=== PATIENT | male | born 1945 | race Caucasian/White ===

== ENCOUNTER 2016-05-31 13:36 | Emergency (ER) | payer MEDICARE, BC ==
[2016-05-31 14:28] VITALS: BP 134/83
--- NOTE | 2016-05-31 14:40 | UC ---
HPI Febrile Illness - HPI Summary HPI Summary: complaint of headache, nasal congestion and cough that started 2 days entire body feels achy, feels chills frequently right ear pain for 1 day denies N/V/D Dr Saravia treating him for prostate cancer sent to [facility] an acute care hospital to get a rapid influenza test last chemo on monday, currently on hormone therapy had influenza immunization this year - History of Current Complaint Chief Complaint: UC Time Seen by Provider: 05/31/16 14:31 Hx Obtained From: Patient - Allergy/Home Medications Allergies/Adverse Reactions: Allergies Allergy/AdvReac Type Severity Reaction Status Date / Time Morphine Allergy Severe VIOLENT Verified 03/20/12 08:12 NAUSEA AND VOMITING PMH/Surg Hx/FS Hx/Imm Hx Previously Healthy: No - prostate cancer Endocrine/Hematology History: Denies: Hx Diabetes Cardiovascular History: Denies: Hx Hypertension Respiratory History: Reports: Hx Asthma, Hx Chronic Obstructive Pulmonary Disease (COPD) GI History: Reports: Hx Gastroesophageal Reflux Disease - ON MEDICATION Musculoskeletal History: Reports: Hx Arthritis - LOWER BACK Sensory History: Reports: Hx Contacts or Glasses - GLASSES Denies: Hx Hearing Aid Opthamlomology History: Reports: Hx Contacts or Glasses - GLASSES Psychiatric History: Reports: Hx Anxiety - ON MEDICATION, Hx Depression - ON MEDICATION - Cancer History Cancer Type, Location and Year: prostrate cancer dx 01/2016. DOing well with treatment started 5 weeks ago - Surgical History Surgery Procedure, Year, and Place: LEFT ELBOW JOINT MOUSE SURGERY, 1983, [facility] [place]. LEFT HIP REPLACEMENT, 2005, [facility] [place]. 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 Substance Use Type: Reports: None Smoking Status (MU): Former Smoker Review of Systems Constitutional: Chills, Fatigue Skin: Negative Eyes: Negative ENT: Ear Ache, Nasal Discharge Respiratory: Cough Cardiovascular: Negative Gastrointestinal: Negative Genitourinary: Negative Motor: Negative Neurovascular: Negative Musculoskeletal: Negative Neurological: Negative Psychological: Negative All Other Systems Reviewed And Are Negative: Yes Physical Exam Triage Information Reviewed: Yes Appearance: No Pain Distress, Well-Nourished Vital Signs: Initial Vital Signs Temp 97.4 F 05/31/16 14:17 Pulse 60 05/31/16 14:17 Resp 18 05/31/16 14:17 BP 134/83 05/31/16 14:17 Pulse Ox 97 05/31/16 14:17 Vital Signs Reviewed: Yes Eyes: Positive: Conjunctiva Clear ENT: Positive: Pharynx normal, Nasal drainage, TMs normal Neck: Positive: No Lymphadenopathy Respiratory: Positive: Lungs clear, No respiratory distress, No accessory muscle use, Decreased breath sounds Cardiovascular: Positive: RRR, No Murmur, Pulses Normal Abdomen Description: Positive: Nontender, Soft Bowel Sounds: Positive: Present Musculoskeletal: Positive: No Edema Neurological: Positive: Alert Psychological Exam: Normal Skin Exam: Normal Course/Dx - Febrile Illness Differential Diagnoses: Other: - influenza, viral illness - Diagnoses Clinic Provider Diagnoses: URI Discharge - Discharge Plan Condition: Stable Disposition: HOME Patient Education Materials: Upper Respiratory Infection (ED) Referrals: Syd Chi MD [Primary Care Provider] - Additional Instructions: Increase fluids and rest Take acetaminophen or ibuprofen for fever or pain Please review your discharge instructions. If your symptoms do not improve please call your primary care provider or return to urgent care.
== END 2016-05-31 15:32 | disposition home or self-care (01) ==
LOC: UCEAST 13:36
DX: J06.9 Acute upper respiratory infection, unspecified (principal); Z88.6 Allergy status to analgesic agent; Z87.891 Personal history of nicotine dependence
CPT/HCPCS: 36415; 86803; 87502; 99202; G0463

== ENCOUNTER → 2018-11-20 19:37 | Emergency (ER) | payer MEDICARE, BC ==
--- NOTE | 2018-11-20 19:56 | ED ---
Lower Extremity - HPI Summary HPI Summary: This pt is a 72 y/o male presenting to [facility] via EMS c/o right knee pain s/p standing up from squatting position today. Pt reports he was pulling weeds with both hands when he squatted down and stood up. Suddenly he felt a sharp pain in his right knee. Denies any other injuries. Denies fall. He reports swelling in his right knee and decreased ROM. Denies hip pain, ankle pain, back pain. He currently rates his pain 2/10 in severity. His pain is aggravated with movement. Pt denies chest pain or SOB. PMHx includes right knee total replacement about 10 years ago at [place]. Pt is not on anticoagulants. - History of Current Complaint Stated Complaint: RIGHT KNEE PAIN PER EMS Hx Obtained From: Patient Mechanism Of Injury: Other - s/p standing up from squatting down Onset of Pain: Immediate Onset/Duration: Still Present Severity Currently: Mild Pain Intensity: 2 Pain Scale Used: 0-10 Numeric Timing: Lasting Hours Location: Is Discrete @ - right knee Character Of Pain: Sharp Associated Signs And Symptoms: Positive: Swelling, Knee Pain - right, Other - NEGATIVE: hip pain, ankle pain, chest pain, SOB, back pain. Aggravating Factor(s): Movement Alleviating Factor(s): Nothing Able to Bear Weight: No - Allergies/Home Medications Allergies/Adverse Reactions: Allergies Allergy/AdvReac Type Severity Reaction Status Date / Time MS Morphine [Morphine] AdvReac Severe VIOLENT Verified 03/31/17 10:18 NAUSEA AND VOMITING PMH/Surg Hx/FS Hx/Imm Hx Endocrine/Hematology History: Denies: Hx Diabetes Cardiovascular History: Reports: Hx Hypercholesterolemia Denies: Hx Hypertension Respiratory History: Reports: Hx Asthma, Hx Chronic Obstructive Pulmonary Disease (COPD) GI History: Reports: Hx Gastroesophageal Reflux Disease - ON MEDICATION Musculoskeletal History: Reports: Hx Arthritis - LOWER BACK Sensory History: Reports: Hx Contacts or Glasses - GLASSES Denies: Hx Hearing Aid Opthamlomology History: Reports: Hx Contacts or Glasses - GLASSES Psychiatric History: Reports: Hx Anxiety - ON MEDICATION, Hx Depression - ON MEDICATION - Cancer History Cancer Type, Location and Year: prostrate cancer dx 01/2016. DOing well with treatment started 5 weeks ago - Surgical History Surgical History: Yes Surgery Procedure, Year, and Place: LEFT ELBOW JOINT MOUSE SURGERY, 1983, [facility] [place]. LEFT HIP REPLACEMENT, 2005, [facility] [place]. 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 Negative: Other - NEGATIVE: hip pain, ankle pain, back pain All Other Systems Reviewed And Are Negative: Yes Physical Exam - Summary Physical Exam Summary: VITAL SIGNS: Reviewed. GENERAL: Patient is a well-developed and nourished male who is lying comfortable in the stretcher. Patient is not in any acute respiratory distress. HEAD AND FACE: No signs of trauma. No ecchymosis, hematomas or skull depressions. No sinus tenderness. EYES: PERRLA, EOMI x 2, No injected conjunctiva, no nystagmus. EARS: Hearing grossly intact. Ear canals and tympanic membranes are within normal limits. MOUTH: Oropharynx within normal limits. NECK: Supple, trachea is midline, no adenopathy, no JVD, no carotid bruit, no c- spine tenderness, neck with full ROM. CHEST: Symmetric, no tenderness at palpation LUNGS: Clear to auscultation bilaterally. No wheezing or crackles. CVS: Regular rate and rhythm, S1 and S2 present, no murmurs or gallops appreciated. ABDOMEN: Soft, non-tender. No signs of distention. No rebound, no guarding, and no masses palpated. Bowel sounds are normal. EXTREMITIES: Right knee: right knee suprapatellar effusion, Decreased ROM, Tenderness to palpation NEURO: Alert and oriented x 3. No acute neurological deficits. Speech is normal and follows commands. SKIN: Dry and warm Triage Information Reviewed: Yes Vital Signs On Initial Exam: Initial Vitals Temp Pulse Resp BP Pulse Ox 97.9 F 69 18 143/80 96 11/20/18 19:38 11/20/18 19:38 11/20/18 19:38 11/20/18 19:38 11/20/18 19:38 Vital Signs Reviewed: Yes Diagnostics - Vital Signs Vital Signs Temp Pulse Resp BP Pulse Ox 11/20/18 19:38 97.9 F 69 18 143/80 96 - Laboratory Lab Statement: Any lab studies that have been ordered have been reviewed, and results considered in the medical decision making process. - Radiology Right knee XR Radiology Interpretation Completed By: ED Physician Summary of Radiographic Findings: S/p total knee replacement, no fracture or dislocation. Soft tissue swelling. - CT CT Right lower extremity CT Interpretation Completed By: Radiologist Summary of CT Findings: IMPRESSION: Well aligned total right knee arthroplasty without evidence of failure or infection. Nonspecific joint effusion. Incompletely evaluated femoral components due to beam hardening artifact. If there is concern for component loosening or infection consider follow up triple phase bone scan. Dr. Williamson has reviewed this report. Re-Evaluation - Re-Evaluation First Eval Re-Evaluation Time: 21:08 Comment: Reviewed XR and CT results with pt. I discussed Dr. Diaz's recommendations with pt. He will be discharged home with follow up from orthopedics. Lower Extremity Course/Dx - Course Assessment/Plan: This pt is a 72 y/o male presenting to [facility] via EMS c/o right knee pain s/p standing up from squatting position today. Pt reports he was pulling weeds with both hands when he squatted down and stood up. Suddenly he felt a sharp pain in his right knee. Denies any other injuries. Denies fall. He reports swelling in his right knee and decreased ROM. Denies hip pain, ankle pain, back pain. He currently rates his pain 2/10 in severity. His pain is aggravated with movement. Pt denies chest pain or SOB. PMHx includes right knee total replacement about 10 years ago at [place]. Pt is not on anticoagulants. X ray of the right knee impression: No fracture or dislocation. Soft tissue swelling. RLE CT IMPRESSION: Well aligned total right knee arthroplasty without evidence of failure or. infection. Nonspecific joint effusion. Incompletely evaluated femoral. components due to beam hardening artifact. If there is concern for component loosening or infection consider follow up triple phase bone scan. I believe patient has a non displaced distal right femur fracture, therefore I discussed the case with Dr. Rodrigues from orthopedics and after he reviewed the CT scan he agrees that the patient has a distal femur fracture. Dr. Rodrigues recommends a knee immobilizer, non-weight bearing, crutches and follow up with orthopedics. Patient declines pain medication since he uses medical [facility]. Patient reports he has an appointment with his orthopedic doctor on and he will keep appointment. Patient is hemodynamically stable, and alert and oriented x 3. - Diagnoses Provider Diagnoses: Fracture of distal femur - Physician Notifications Discussed Care Of Patient With: Jamie Diaz - orthopedist Time Discussed With Above Provider: 21:03 Instructed by Provider To: Other - Discussed the case with Dr. Diaz, orthopedist, who agrees with distal femur fracture on the right. Discharge - Sign-Out/Discharge Documenting (check all that apply): Patient Departure - Discharge home Patient Received Moderate/Deep Sedation with Procedure: No - Discharge Plan Condition: Stable Disposition: HOME Patient Education Materials: Leg Fracture (ED) Referrals: Syd Chi MD [Primary Care Provider] - Jamie Diaz MD [Medical Doctor] - Mar SALDANA,Dante Aguilar [Medical Doctor] - Additional Instructions: Use knee immobilizer. No weight bearing. FOLLOW UP WITH YOUR ORTHOPEDIST AT [place] ON MONDAY SCHEDULED. YOU CAN ALSO FOLLOW UP WITH DR. DIAZ, ORTHOPEDIST. RETURN TO THE ED FOR ANY NEW OR WORSENING SYMPTOMS. - Billing Disposition and Condition Condition: STABLE Disposition: Home - Attestation Statements Document Initiated by Cam: Yes Documenting Scribe: Michelle Pham Provider For Whom Cam is Documenting (Include Credential): Real Williamson MD Scribe Attestation: Michelle Loza scribed for Real Williamson MD on 11/20/18 at 2138. Scribe Documentation Reviewed: Yes Provider Attestation: The documentation as recorded by the Michelle rios accurately reflects the service I personally performed and the decisions made by Real aly MD Status of Scribe Document: Viewed
[2018-11-20 21:04] VITALS: BP 133/68
--- NOTE | 2018-11-21 10:49 | PN ---
Progress Note - Progress Note Date of Service: 11/21/18 Note: final xray reading shows: IMPRESSION: 1. STATUS POST TOTAL RIGHT KNEE REPLACEMENT SURGERY. 2. LARGE JOINT EFFUSION. patient was treat with immbolizer for distal femur fracture so no further action required
== END | disposition home or self-care (01) ==
LOC: ED 19:37
DX: S72.401A Unspecified fracture of lower end of right femur, initial encounter for closed fracture (principal); X58.XXXA Exposure to other specified factors, initial encounter; Z87.891 Personal history of nicotine dependence; Z96.651 Presence of right artificial knee joint
CPT/HCPCS: 99282

== ENCOUNTER 2019-03-06 16:41 | Emergency (ER) | payer MEDICARE, BC ==
--- NOTE | 2019-03-06 17:25 | ED ---
Neurological HPI - HPI Summary HPI Summary: This pt is a 73 y/o male presenting to [facility] c/o left eye visual disturbance since 2 hours ago around 1500 today. Pt reports he was shopping in the mall when he bent down and straightened his back. Suddenly he developed left eye visual changes, which includes unable to see out of the peripheral and only seeing black and white from the left eye. Pt notes his right eye is fine. Denies headache, SOB, chest pain, palpitations. He did not take any pain medications today. Pt has had surgery on left eye for detached retina 5 years ago. - History of Current Complaint Chief Complaint: EDNeurologicalDeficit Stated Complaint: LOSS OF VISION ONE EYE PER PT Time Seen by Provider: 03/06/19 17:11 Hx Obtained From: Patient Onset/Duration: Sudden Onset, Still Present Current Severity: Moderate Pain Intensity: 0 - denies pain Pain Scale Used: 0-10 Numeric Character: Other: - left eye visual changes Aggravating: Nothing Alleviating: Nothing Associated Signs and Symptoms: Negative: Headache, Fever, Chest Pain, Shortness of Breath, Palpitations - Allergy/Home Medications Allergies/Adverse Reactions: Allergies Allergy/AdvReac Type Severity Reaction Status Date / Time fentanyl Allergy Agitation Verified 03/06/19 17:25 morphine Allergy Agitation Verified 03/06/19 17:25 Home Medications: Home Medications Finasteride TAB* [Proscar TAB*] 5 mg PO DAILY 03/06/19 [History Confirmed ] Meloxicam(NF) [Mobic(NF)] 15 mg PO DAILY 03/06/19 [History Confirmed 03/06/19] Pantoprazole TAB * [Protonix TAB*] 40 mg PO DAILY 03/06/19 [History Confirmed ] PMH/Surg Hx/FS Hx/Imm Hx Endocrine/Hematology History: Denies: Hx Diabetes Cardiovascular History: Reports: Hx Hypercholesterolemia Denies: Hx Hypertension Respiratory History: Reports: Hx Asthma, Hx Chronic Obstructive Pulmonary Disease (COPD) GI History: Reports: Hx Gastroesophageal Reflux Disease - ON MEDICATION Musculoskeletal History: Reports: Hx Arthritis - LOWER BACK Sensory History: Reports: Hx Contacts or Glasses - GLASSES Denies: Hx Hearing Aid Opthamlomology History: Reports: Hx Contacts or Glasses - GLASSES Psychiatric History: Reports: Hx Anxiety - ON MEDICATION, Hx Depression - ON MEDICATION - Cancer History Cancer Type, Location and Year: prostrate cancer dx 01/2016. DOing well with treatment started 5 weeks ago - Surgical History Surgical History: Yes Surgery Procedure, Year, and Place: LEFT ELBOW JOINT MOUSE SURGERY, 1983, [facility]. LEFT HIP REPLACEMENT, 2005, [facility]. 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 GENERAL: Patient is a well-developed and nourished male who is lying comfortable in the stretcher. Patient is not in any acute respiratory distress. HEAD AND FACE: No signs of trauma. No ecchymosis, hematomas or skull depressions. No sinus tenderness. EYES: Pinpoint pupils. I cannot do a funduscopic exam, No injected conjunctiva, no nystagmus. EARS: Hearing grossly intact. Ear canals and tympanic membranes are within normal limits. MOUTH: Oropharynx within normal limits. NECK: Supple, trachea is midline, no adenopathy, no JVD, no carotid bruit, no c- spine tenderness, neck with full ROM. CHEST: Symmetric, no tenderness at palpation LUNGS: Clear to auscultation bilaterally. No wheezing or crackles. CVS: Regular rate and rhythm, S1 and S2 present, no murmurs or gallops appreciated. ABDOMEN: Soft, non-tender. No signs of distention. No rebound no guarding, and no masses palpated. Bowel sounds are normal. EXTREMITIES: FROM in all major joints, no edema, no cyanosis or clubbing. NEURO: Alert and oriented x 3. No acute neurological deficits. Speech is normal and follows commands. SKIN: Dry and warm Triage Information Reviewed: Yes Vital Signs On Initial Exam: Initial Vitals Temp Pulse Resp BP Pulse Ox 97.7 F 54 16 158/71 94 03/06/19 16:42 03/06/19 16:42 03/06/19 16:42 03/06/19 16:42 03/06/19 16:42 Vital Signs Reviewed: Yes Procedures - Sedation Patient Received Moderate/Deep Sedation with Procedure: No Diagnostics - Vital Signs Vital Signs Temp Pulse Resp BP Pulse Ox 03/06/19 16:42 97.7 F 54 16 158/71 94 - Laboratory Result Diagrams: 03/06/19 18:25 03/06/19 18:24 Lab Statement: Any lab studies that have been ordered have been reviewed, and results considered in the medical decision making process. - CT Brain CT CT Interpretation Completed By: Radiologist Summary of CT Findings: IMPRESSION: 1. No acute intracranial hemorrhage or acute territorial type infarct. 2. There is moderate ventriculomegaly. Normal pressure hydrocephalus cannot be excluded. Mild sulcal atrophy is also visualized. 3. There are periventricular foci of white matter hypodensity, likely representing small vessel ischemic disease in a patient this age. 4. If further evaluation is clinically indicated, an MRI of the brain is recommended. Dr. Williamson has reviewed this report. Head CTA CT Interpretation Completed By: Radiologist Summary of CT Findings: IMPRESSION: 1. Mild atherosclerosis of the internal carotid arteries, with less than 50% stenoses bilaterally. 2. A dominant left vertebral artery is identified. 3. There is decreased enhancement of a few distal M2 and M3 branches bilaterally, consistent with decreased flow or stenoses. 4. Additional findings described above. Dr. Williamson has reviewed this report. Neck CTA CT Interpretation Completed By: Radiologist Summary of CT Findings: IMPRESSION: 1. Atherosclerosis and mural thrombus involving the proximal right internal carotid artery, with less than 50 prcent stenosis. 2. Mild atherosclerosis and mural thrombus involving the left carotid bifurcation, with less than 50 percent stenosis of the proximal left internal carotid artery and distal left common carotid artery. 3. Less than 50 percent stenosis of the proximal left subclavian artery. 4. A dominant left vertebral artery is identified. 5. There is effacement of the right pyriform sinus. Clinical correlation recommended. 6. Additional findings described above. Dr. Williamson has reviewed this report. - EKG 17:56 Cardiac Rate: Bradycardia - at 57 bpm EKG Rhythm: Sinus Bradycardia Summary of EKG Findings: An EKG at 1756 shows sinus bradycardia at [address] elevations. NIH Scale - NIH Scale Level of Consciousness: Alert/Keenly Responsive Ask Patient the Month and His/Her Age: Both Correct Ask Pt to Open/Close Eyes and Wet Finisher Wool/Release Non-Paretic Hand: Both Correctly Best Gaze (Only Horizontal Eye Movement): Normal Visual Field Testing: No Visual Loss Facial Paresis-Pt to Smile & Close Eyes or Grimace Symmetry: Normal/Symmetrical Motor Function - Right Arm: No Drift-Holds 10 Seconds Motor Function - Left Arm: No Drift-Holds 10 Seconds Motor Function - Right Leg: No Drift-Holds 10 Seconds Motor Function - Left Leg: No Drift-Holds 10 Seconds Limb Ataxia-Must be out of Proportion to Weakness Present: Absent Sensory (Use Pinprick to Test Arms/Legs/Trunk/Face): Normal Best Language (Describe Picture, Name Items): No Aphasia Dysarthria (Read Several Words): Normal Extinction and Inattention: No Abnormality Total Score: 0 Course/Dx - Course Assessment/Plan: Patient had a sudden loss of vision in the left eye. Therefore I discussed case with Dr. Nicholas from neurology who recommends a head CT and CTA. After we obtained the test he recommends to run the case by [place] [facility]. I discussed the case with Dr. Santana who will review the head CT and CTA and he recommends a STAT ophthalmology consult. CTA head and neck IMPRESSION: 1. Mild atherosclerosis of the internal carotid arteries , with less than 50% stenoses bilaterally. 2. A dominant left vertebral artery is identified. 3. There is decreased enhancement of a few distal M2 and M3 branches. bilaterally, consistent with decreased flow or stenoses. 4. Additional findings described above. Head CT IMPRESSION: 1. No acute intracranial hemorrhage or acute territorial type infarct. 2. There is a moderate ventriculomegaly. Normal pressure hydrocephalus cannot be excluded. Mild sulcal atrophy is also visualized. 3. There are periventricular foci of white matter hypodensity, likely. representing small vessel ischemic disease in a patient this age. 4. If further evaluation is clinically indicated, an MRI of the brain is. recommended. Blood work w/o a significant abnormality except for creatinine 1.39. I discussed the case with and Dr. Mckay the ED attending at [facility] and she accepted the patient for transport. She will be requesting an ophthalmology consult once the patient gets to the [facility] ED. The patient is hemodynamically stable, alert and oriented 3. - Diagnoses Provider Diagnoses: Vision loss, left eye - Physician Notifications Discussed Care Of Patient With: Ric Nicholas Time Discussed With Above Provider: 17:37 Instructed by Provider To: Other - Discussed the case with Dr. Nicholas, neurologist, who recommends CTA and waiving the labs. [17:48] Dr. Nicholas, neurologist, requests to call neurology in [place]. [18:02] Discussed with Dr. Santana, neurologist at [facility], recommends an immediate consult with ophthalmology. [18:17] Radiologist reports negative brain CT. [17:13] Spoke with Dr. Mckay, [facility], who accepted the pt for transfer from ED to ED. Discharge ED - Sign-Out/Discharge Documenting (check all that apply): Patient Departure - Transfer to [facility] - Discharge Plan Condition: Stable Disposition: TRANS HIGHER LVL OF CARE FAC Referrals: Syd Chi MD [Primary Care Provider] - - Billing Disposition and Condition Condition: STABLE Disposition: Trans Higher Lvl of Care Fac - Attestation Statements Document Initiated by Scribe: Yes Documenting Scribe: Michelle Pham Provider For Whom Manuelibe is Documenting (Include Credential): Real Williamson MD Scribe Attestation: Michelle Loza, scribed for Real Williamson MD on 03/06/19 at 1924. Scribe Documentation Reviewed: Yes Provider Attestation: The documentation as recorded by the Michelle rios accurately reflects the service I personally performed and the decisions made by Real aly MD Status of Scribe Document: Viewed
--- OUTSIDE RECORDS SUMMARY | 2019-03-06 17:26 | XMS REPORT | Continuity of Care Document ---
:1945 External Reference #:[id number] Author Name Syd Chi M.D. 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 [facility] Tamsulosin HCL Take One Capsule 90caps N40.1 Syd Chi, 04/04/2017 0.4mg By Mouth In The M.D. Capsules Evening Please Give Pneumo Syd Chi, 03/22/2017 Vax 13 M.D. Ventolin HFA inhale two puffs 36gm J44.9 Syd Chi, 11/15/2016 by mouth every 4 M.D. 108(90Base) mcg/Act hours as needed Aerosol R06.02 Meloxicam Take One Tablet By 90tabs M15.9 Syd Chi, 10/13/2016 15mg Tablets Mouth Every Day M.D. M79.643 M79.606 Ibuprofen 1 tab by mouth 90tabs M79.643 Syd Chi, 09/09/2016 800mg Tablets every 8 hours with M.D. food as needed for pain M25.561 M54.5 Tramadol HCL 1 by mouth every 4 45tabs M79.643 [facility], 09/09/2016 50mg hours as needed M.D. Tablets M25.561 M54.5 Nexium 1 by mouth every 90caps K21.0 [facility] day M.D. Vitamin D3 1 by mouth every 90tabs E55.9 [facility], 09/18/2015 5000Unit day M.D. Tablets Advair Diskus Inhale One puff [facility] 180units [facility].9 [facility] Mouth Twice A Day M.D. 100-50mcg/Dose Aerosol J41.1 Olanzapine Take One Tablet By 90tabs F31.81 [facility], 10mg Tablets Mouth Every Day M.D. F41.9 F33.9 Clonazepam 1 tab by mouth 60tabs F41.9 [facility], 0.5mg Tablets twice a day as M.D. needed G47.00 F31.81 Ipratropium use nebulizer every 180ml J44.9 [facility] Zenia/Albuterol Sulfate 4 hours as needed M., M.D. for shortness of 0.5-2.5(3)mg/3ML Solution breath Fluticasone Propionate 2 sprays in each 48gm J30.9 [facility] 50mcg/Act nostril every day M., M.D. Suspension as needed Pantoprazole Sodium take one tablet by 90tabs K21.9 [facility] 40mg Tablets [address] mouth every day M., M.D. K30 Finasteride Take One Tablet By 90tabs N40.1 [facility], 5mg Tablets Mouth Every Day M.D. R35.1 Immunizations CPT Code Status Date Vaccine Reaction Lot # 70099 Given 02/26/2019 Flu Virus Vaccine, [id number] Quadrivalent, Slit Virus, Im Use [id number] Given 02/24/2016 Flu Vaccine 3+Yrs [id number] Old(Fluzone) [id number] Ordered 03/13/[address] CARRERA GAVE PNEUMO 23 IN 02/2014 Vital Signs Date Vital Result Comment 02/26/2019 1:20pm BP Systolic 118 mmHg BP Diastolic 62 mmHg Height 70 inches 5'10" Weight 219.00 lb BMI (Body Mass Index) 31.4 kg/m2 Heart Rate 63 /min Respiratory Rate 16 /min 09/27/2018 1:12pm BP Systolic 118 mmHg BP Diastolic 70 mmHg Height 70 inches 5'10" Weight 221.00 lb BMI (Body Mass Index) 31.7 kg/m2 Heart Rate 61 /min Respiratory Rate 16 /min Results Test Date Facility Test Result H/L Range Note CBC With Diff 09/25/2018 [facility] WBC 4.0 10*3/uL Low (4.1-11.0) [facility] (607)- - RBC 4.04 10*6/uL Low (4.60-6.10) HGB 12.7 g/dL Low (13.5-18.0) HCT 38.1 % Low (41.0-53.0) MCV 94.4 fL (80.0-95.0) MCH 31.6 pg (27.0-32.0) MCHC 33.4 g/dL (32.0-36.0) RDW 13.5 % (10.5-14.5) PLT 307 10*3/uL (150-450) MPV 9.0 fL (7.1-10.7) Neut % 58.4 % (35.0-75.0) Lymph % 27.2 % (16.0-52.0) [place] % 12.6 % High (0.0-8.0) Eos % 1.3 % (0.0-5.0) Baso % 0.5 % (0.0-4.0) Neut # 2.3 10*3/uL (1.8-7.7) Lymph # 1.1 10*3/uL Low (1.2-4.8) Duval # 0.5 10*3/uL (0.0-0.8) Eos # 0.1 10*3/uL (0.0-0.5) Baso # 0.0 10*3/uL (0.0-0.2) CMP 09/25/2018 [facility] Sodium 137 mmol/L (136-145) [facility] (607)- - Potassium 4.6 mmol/L (3.6-5.2) Chloride 106 mmol/L (100-108) Co2 27 mmol/L (22-31) Anion Gap 4 mmol/L Low (7-16) Urea Nitrogen 17 mg/dL (7-24) Creatinine 1.33 mg/dL High (0.80-1.30) BUN/Creat Ratio 12.8 RATIO (10.0-20.0) Glucose 93 mg/dL (70-99) Calcium 8.6 mg/dL (8.4-10.2) Total Protein 6.4 g/dL (6.4-8.2) Albumin 3.7 g/dL (3.2-4.5) Globulin 2.7 g/dL (2.7-4.3) Alb/Glob Ratio 1.4 RATIO Alkaline Phosphatase 75 U/L (45-117) Bilirubin,Total 0.7 mg/dL (0.0-1.0) Ast (Sgot) 15 U/L (11-39) Alt (SGPT) 26 U/L (12-78) GFR 53 ml/min/1.73m2 Low (>59) GFR ( Amer) >60 ml/min/1.73m2 (>59) GFR Interpretation <SEE NOTE> 1 Laboratory 09/25/2018 [facility] TSH,Ultrasensitive @ 2.390 (0.360- 4.170) test finding [facility] mIU/L (607)- - Free Thyroxine @ 0.97 ng/dL (0.76-1.46) Esr 13 mm/h (0-20) Lyme Disease 09/25/2018 [facility] Lyme Igm/Igg AB @ NEGATIVE (Neg) 2 Antibodies Igg/Igm [facility] (607)- - Laboratory test 09/25/2018 [facility] CRP, Sensitive @ 0.6 mg/L 3 finding [facility] (607)- - Lipid Extended 09/25/2018 [facility] Appearance CLEAR (Clear) Panel [facility] (607)- - Cholesterol @ 253 mg/dL High (0-200) Triglyceride @ 330 mg/dL High (30-200) HDL Cholesterol @ 37 mg/dL Low (>40) 4 Chol/HDL Ratio 6.8 RATIO 5 Direct LDL @ 154 mg/dL High (<130) 6 VLDL (Calc) 62 mg/dL High (0-30) Laboratory test 09/25/2018 [facility] 25 Hydroxy Vit D 19 ng/mL Low (31 -100) 7 finding [facility] [place] (607)- - Hemoglobin A1c 09/25/2018 [facility] Hemoglobin A1c @ 5.7 % (4.0-6.0) 8 [address] [facility] (607)- - Est Average Glucose 117 mg/dL 1 NORMAL KIDNEY FUNCTION OR MILD DISEASE - GFR >OR= 60 CHRONIC KIDNEY DISEASE - GFR 15 - 59 RENAL FAILURE - GFR <15 Est. GFR calculation based on the MDRD study equation, which assumes a steady state for creatinine. Est. GFR should not be used for medication dosing. 2 A Negative serologic test for Lyme Disease indicates no serologic evidence of infection with B burgdorferi at the time this specimen was collected. A repeat specimen should be collected in 2 to 4 weeks if clinically indicated. 3 RELATIVE RISK CATEGORY AND AVERAGE hs-CRP LEVEL: LOW RISK < 1.0 MG/L AVERAGE RISK 1.0 to 3.0 MG/L HIGH RISK > 3.0 MG/L 4 PER NCEP ATP III GUIDELINES: RESULTS LOWER THAN 40 MG/DL ARE SUGGESTIVE OF INCREASED RISK FOR CORONARY ARTERY DISEASE. RESULTS > OR = TO 60 MG/DL ARE CONSIDERED A NEGATIVE RISK FACTOR. 5 INTERPRETATION OF CHOL-HDL RATIO CHD RISK FEMALE MALE VERY HIGH >8.3 >14.3 HIGH 5.6- 8.3 6.7- 14.3 AVERAGE 3.7- 5.6 4.0- 6.7 BELOW AVERAGE 2.5- 3.7 2.7- 4.0 PROTECTED <2.5 <2.7 6 PER NCEP ATP III GUIDELINES: OPTIMAL < 100 NEAR OPTIMAL 100 - 129 BORDERLINE HIGH 130 - 159 HIGH 160 - 189 VERY HIGH > 189 7 A REVIEW OF THE LITERATURE SUGGESTS THE FOLLOWING RANGES FOR THE CLASSIFICATION OF 25-OH VITAMIN D STATUS: VITAMIN D STATUS 25-OH VITAMIN D DEFICIENCY <20 NG/ML INSUFFICIENCY 20-30 NG/ML SUFFICIENCY 31 - 100 NG/ML TOXICITY > 100 NG/ML A PEDIATRIC REFERENCE RANGE HAS NOT BEEN ESTABLISHED USING THIS METHOD. 8 Performed using Optherion immunoassay. Care must be taken when interpreting HbA1c results in patients with a hemoglobin variant or decreased erythrocyte lifespan. Values 5.7 - 6.4% suggest prediabetes. Values >=6.5% are diagnostic for diabetes. REFERENCE: DIABETES CARE 2018: 41(S13-S27). Procedures Date Code Description Status 09/27/2018 77521 EKG Completed 09/25/2018 38431 EKG Completed Medical Devices Description No Information Available Encounters Type Date Location Provider Dx Diagnosis Office Visit 02/26/2019 [facility] Syd Chi, E78.2 Mixed hyperlipidemia 1:30p M.D. 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, in remission M54.5 Low back pain M25.561 Pain in right knee M25.559 Pain in unspecified hip M79.606 Pain in leg, unspecified M25.529 Pain in unspecified elbow K30 Functional dyspepsia R35.1 Nocturia F31.81 Bipolar II disorder F41.9 Anxiety disorder, unspecified G47.00 Insomnia, unspecified H53.30 Unspecified disorder of binocular vision Z96.643 Presence of artificial hip joint, bilateral M79.643 Pain in unspecified hand R06.02 Shortness of breath B02.9 Zoster without complications L82.1 Other seborrheic keratosis R53.83 Other fatigue R94.31 Abnormal electrocardiogram [ECG] [EKG] Z23 Encounter for immunization Office Visit 09/27/2018 1:30p [facility] Syd Chi E78.2 Mixed hyperlipidemia Addison Rivas 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, in remission M54.5 Low back pain M25.561 Pain in right knee M25.559 Pain in unspecified hip M79.606 Pain in leg, unspecified M25.529 Pain in unspecified elbow K30 Functional dyspepsia R35.1 Nocturia F31.81 Bipolar II disorder F41.9 Anxiety disorder, unspecified G47.00 Insomnia, unspecified H53.30 Unspecified disorder of binocular vision Z96.643 Presence of artificial hip joint, bilateral M79.643 Pain in unspecified hand R06.02 Shortness of breath B02.9 Zoster without complications L82.1 Other seborrheic keratosis R53.83 Other fatigue R94.31 Abnormal electrocardiogram [ECG] [EKG] Office Visit 09/25/2018 1:15p [facility] Syd Chi E78.2 Mixed hyperlipidemia Addison Rivas J44.9 Chronic obstructive pulmonary disease, unspecified K21.0 Gastro-esophageal reflux disease with esophagitis M15.9 Polyosteoarthritis, unspecified L20.9 Atopic dermatitis, unspecified J30.9 Allergic rhinitis, unspecified R00.1 Bradycardia, unspecified E55.9 Vitamin D deficiency, unspecified C61 Malignant neoplasm of prostate R73.01 Impaired fasting glucose Z68.31 Body mass index (BMI) 31.0-31.9, adult N40.1 Benign prostatic hyperplasia with lower urinary tract symp F10.21 Alcohol dependence, in remission M54.5 Low back pain M25.561 Pain in right knee M25.559 Pain in unspecified hip M79.606 Pain in leg, unspecified M25.529 Pain in unspecified elbow K30 Functional dyspepsia R35.1 Nocturia F31.81 Bipolar II disorder F41.9 Anxiety disorder, unspecified G47.00 Insomnia, unspecified H53.30 Unspecified disorder of binocular vision Z96.643 Presence of artificial hip joint, bilateral M79.643 Pain in unspecified hand R06.02 Shortness of breath B02.9 Zoster without complications L82.1 Other seborrheic keratosis R53.83 Other fatigue Z00.01 Encounter for general adult medical exam w abnormal findings Assessments Date Code Description Provider 02/26/2019 E78.2 Mixed hyperlipidemia Syd Chi M.D. 02/26/2019 J44.9 Chronic obstructive pulmonary disease, Syd Chi M.D. unspecified 02/26/2019 K21.0 Gastro-esophageal reflux disease with Syd Chi M.D. esophagitis 02/26/2019 M15.9 Polyosteoarthritis, unspecified Syd Chi M.D. 02/26/2019 L20.9 Atopic dermatitis, unspecified Syd Chi M.D. 02/26/2019 J30.9 Allergic rhinitis, unspecified Syd Chi M.D. 02/26/2019 R00.1 Bradycardia, unspecified Syd Chi M.D. 02/26/2019 E55.9 Vitamin D deficiency, unspecified Syd Chi M.D. 02/26/2019 C61 Malignant neoplasm of prostate Syd Chi M.D. 02/26/2019 R73.01 Impaired fasting glucose Syd Chi M.D. 02/26/2019 N40.1 Benign prostatic hyperplasia with lower Syd Chi M.D. urinary tract symptoms 02/26/2019 F10.21 Alcohol dependence, in remission Syd Chi M.D. 02/26/2019 M54.5 Low back pain Sdy Chi M.D. 02/26/2019 M25.561 Pain in right knee Syd Chi M.D. 02/26/2019 M25.559 Pain in unspecified hip Syd Chi M.D. 02/26/2019 M79.606 Pain in leg, unspecified Syd Chi M.D. 02/26/2019 M25.529 Pain in unspecified elbow Syd Chi M.D. 02/26/2019 K30 Functional dyspepsia Syd Chi M.D. 02/26/2019 R35.1 Nocturia Syd Chi M.D. 02/26/2019 F31.81 Bipolar II disorder Syd Chi M.D. 02/26/2019 F41.9 Anxiety disorder, unspecified Syd Chi M.D. 02/26/2019 G47.00 Insomnia, unspecified Syd Chi M.D. 02/26/2019 H53.30 Unspecified disorder of binocular vision Syd Chi M.D. 02/26/2019 Z96.643 Presence of artificial hip joint, bilateral Syd Chi M.D. 02/26/2019 M79.643 Pain in unspecified hand Syd Chi M.D. 02/26/2019 R06.02 Shortness of breath Syd Chi M.D. 02/26/2019 B02.9 Zoster without complications Syd Chi M.D. 02/26/2019 L82.1 Other seborrheic keratosis Syd Chi M.D. 02/26/2019 R53.83 Other fatigue Syd Chi M.D. 02/26/2019 R94.31 Abnormal electrocardiogram [ECG] [EKG] Syd Chi M.D. 02/26/2019 Z23 Encounter for immunization AlonSyd pelaez M.D. 09/27/2018 E78.2 Mixed hyperlipidemia Syd Chi M.D. 09/27/2018 J44.9 Chronic obstructive pulmonary disease, Syd Chi M.D. unspecified 09/27/2018 K21.0 Gastro-esophageal reflux disease with Syd Chi M.D. esophagitis 09/27/2018 M15.9 Polyosteoarthritis, unspecified Syd Chi M.D. 09/27/2018 L20.9 Atopic dermatitis, unspecified Syd Chi M.D. 09/27/2018 J30.9 Allergic rhinitis, unspecified Syd Chi M.D. 09/27/2018 R00.1 Bradycardia, unspecified Syd Chi M.D. 09/27/2018 E55.9 Vitamin D deficiency, unspecified Syd Chi M.D. 09/27/2018 C61 Malignant neoplasm of prostate Syd Chi M.D. 09/27/2018 R73.01 Impaired fasting glucose Syd Chi M.D. 09/27/2018 N40.1 Benign prostatic hyperplasia with lower Syd Chi M.D. urinary tract sympto 09/27/2018 F10.21 Alcohol dependence, in remission Syd Chi M.D. 09/27/2018 M54.5 Low back pain Syd Chi M.D. 09/27/2018 M25.561 Pain in right knee Syd Chi M.D. 09/27/2018 M25.559 Pain in unspecified hip Syd Chi M.D. 09/27/2018 M79.606 Pain in leg, unspecified Syd Chi M.D. 09/27/2018 M25.529 Pain in unspecified elbow Syd Chi M.D. 09/27/2018 K30 Functional dyspepsia Syd Chi M.D. 09/27/2018 R35.1 Nocturia Syd Chi M.D. 09/27/2018 F31.81 Bipolar II disorder Syd Chi M.D. 09/27/2018 F41.9 Anxiety disorder, unspecified Syd Chi M.D. 09/27/2018 G47.00 Insomnia, unspecified Syd Chi M.D. 09/27/2018 H53.30 Unspecified disorder of binocular vision Syd Chi M.D. 09/27/2018 Z96.643 Presence of artificial hip joint, bilateral Syd Chi M.D. 09/27/2018 M79.643 Pain in unspecified hand Syd Chi M.D. 09/27/2018 R06.02 Shortness of breath Syd Chi M.D. 09/27/2018 B02.9 Zoster without complications Syd Chi M.D. 09/27/2018 L82.1 Other seborrheic keratosis Syd Chi M.D. 09/27/2018 R53.83 Other fatigue Syd Chi M.D. 09/27/2018 R94.31 Abnormal electrocardiogram [ECG] [EKG] Syd Chi M.D. 09/25/2018 E78.2 Mixed hyperlipidemia Syd Chi M.D. 09/25/2018 J44.9 Chronic obstructive pulmonary disease, Syd Chi M.D. unspecified 09/25/2018 K21.0 Gastro-esophageal reflux disease with Syd Chi M.D. esophagitis 09/25/2018 M15.9 Polyosteoarthritis, unspecified Syd Chi M.D. 09/25/2018 L20.9 Atopic dermatitis, unspecified Syd Chi M.D. 09/25/2018 J30.9 Allergic rhinitis, unspecified Syd Chi M.D. 09/25/2018 R00.1 Bradycardia, unspecified Syd Chi M.D. 09/25/2018 E55.9 Vitamin D deficiency, unspecified Syd Chi M.D. 09/25/2018 C61 Malignant neoplasm of prostate Syd Chi M.D. 09/25/2018 R73.01 Impaired fasting glucose Syd Chi M.D. 09/25/2018 Z68.31 Body mass index (BMI) 31.0-31.9, adult Syd Chi M.D. 09/25/2018 N40.1 Benign prostatic hyperplasia with lower Syd Chi M.D. urinary tract sympto 09/25/2018 F10.21 Alcohol dependence, in remission Syd Chi M.D. 09/25/2018 M54.5 Low back pain Syd Chi M.D. 09/25/2018 M25.561 Pain in right knee Syd Chi M.D. 09/25/2018 M25.559 Pain in unspecified hip Syd Chi M.D. 09/25/2018 M79.606 Pain in leg, unspecified ySd Chi M.D. 09/25/2018 M25.529 Pain in unspecified elbow Syd Chi M.D. 09/25/2018 K30 Functional dyspepsia Syd Chi M.D. 09/25/2018 R35.1 Nocturia Syd Chi M.D. 09/25/2018 F31.81 Bipolar II disorder Syd Chi M.D. 09/25/2018 F41.9 Anxiety disorder, unspecified Syd Chi M.D. 09/25/2018 G47.00 Insomnia, unspecified Syd Chi M.D. 09/25/2018 H53.30 Unspecified disorder of binocular vision Syd Chi M.D. 09/25/2018 Z96.643 Presence of artificial hip joint, bilateral Syd Chi M.D. 09/25/2018 M79.643 Pain in unspecified hand Syd Chi M.D. 09/25/2018 R06.02 Shortness of breath Syd Chi M.D. 09/25/2018 B02.9 Zoster without complications Syd Chi M.D. 09/25/2018 L82.1 Other seborrheic keratosis Syd Chi M.D. 09/25/2018 R53.83 Other fatigue Syd Chi M.D. 09/25/2018 Z00.01 Encounter for general adult medical Syd Chi M.D. examination with abnorma Plan of Treatment Future Appointment(s):02/28/2019 9:45 am - Syd Chi M.D. at [facility]02/26/2019 - Syd Chi M.D.E78.2 Mixed hyperlipidemiaComments:DIET REVIEWED CONTINUE DIETWT LOSSF/U LAB FBWJ44.9 Chronic obstructive pulmonary disease, unspecifiedComments:INCREASE PO FLUIDREST NEB OR MDI AND /OR HODYEXV76.0 Gastro-esophageal reflux disease with esophagitisComments:AVOID CAFFEINE, ETOH AND SPICY FOODSTUMS OR MYLANTA PRN CALL WITH PROBLEMS OR YZVRDHURY39.9 Polyosteoarthritis, unspecifiedComments:EXERCISE/HEAT/ MESSAGETYLENOL OR MOTRIN PRNAVOID HEAVY LIFTINGWT LOSSL20.9 Atopic dermatitis, unspecifiedComments:SKIN CARE INSTRUCTIONS LOTION OR BABY OIL 2-3 APPLICATION PER DAYUSE MOISTURIZING SOAPAVOID PROLONGED WATER EXPOSUREAVOID USING HOT WATER IN PMVXXTL50.9 Allergic rhinitis, unspecifiedComments:INCREASE PO FLUID USE ANTIHISTAMINE PRN SECOND HAND SMOKING BUHBQNEMPF61.1 Bradycardia, unspecifiedComments:STABLE AND EXMWZCAUWSVHH36.9 Vitamin D deficiency, unspecifiedComments:INCREASE EXPOSURE TO SUNREVIEW OF DIETC61 Malignant neoplasm of prostateComments:F/U WITH UROLOGY F/U WITH NTEMBXWGK83.01 Impaired fasting glucoseComments:F/U HGAICFS QAC AN HS PRNLOW GLUCOSE DIETN40.1 Benign prostatic hyperplasia with lower urinary tract symptomsComments:F/U WITH UROLOGY USE RX [id number] Alcohol dependence, in remissionComments: OBSERVE COUNCELLING AND ZHMMEZZRMXUO34.5 Low back painComments:EXERCISE/HEAT / MESSAGEAVOID HEAVY LIFTING WT LOSSTYLENOL OR MOTRIN PRNM25.561 Pain in right kneeComments:EXERCISE/HEAT /MESSAGEAVOID HEAVY LIFTING WT LOSSTYLENOL OR MOTRIN PRNM25.559 Pain in unspecified hipComments:EXERCISE/HEAT/MESSAGETYLENOL OR MOTRIN PRNAVOID HEAVY LIFTINGWT LOSSM79.606 Pain in leg, unspecifiedComments: TYLENOL OR MOTRIN PRN EXERCISE/HEAT/MDCEVVRY98.529 Pain in unspecified elbowComments:EXERCISE/HEAT/MESSAGE TYLENOL OR MOTRIN PRNAVOID HEAVY LIFTING SIMONE WRAP PRNELEVATE PRNK30 Functional dyspepsiaComments:AVOID CAFFEINE, ETOH AND SPICY FOODSTUMS OR MYLANTA PRN CALL WITH PROBLEMS OR AGEZKKVHW97.1 NocturiaComments:USE RX GIVEN PYKAYZZK48.81 Bipolar II disorderComments: COUNCELLING AND REASSURANCE RELAXATION TECHNIQUES DISCUSSED COUNSELED RE: STRESSORS IN LIFEF41.9 Anxiety disorder, unspecifiedComments:COUNCELLING AND REASSURANCE RELAXATION TECHNIQUES DISCUSSEDCOUNSELED RE: STRESSORS IN LIFE AVOID ALLENERGY/HIGH CAFFEINE DRINKS DUR GVTTNUGM18.00 Insomnia, unspecifiedComments:COUNCELLING AND REASSURANCE RELAXATION TECHNIQUES DISCUSSED COUNSELED RE: STRESSORS IN LIFE TYLENOLPM OR MOTRIN PM PRN DUR DQHMESTL03.30 Unspecified disorder of binocular visionComments:USE GLASSES/CONTACTSF/U WITH FQEJNKXBPYKZIO99.643 Presence of artificial hip joint, bilateralComments:F/U WITH BGQEHS01.643 Pain in unspecified handComments:EXERCISE/HEAT/MESSAGETYLENOL OR MOTRIN PRNAVOID HEAVY LIFTINGWT LOSS DUR FKZNZUQQ16.02 Shortness of breathComments:INCREASE PO FLUIDRESTNEB OR MDI AND /OR FGADGZZ51.9 Zoster without complicationsComments:SKIN CARETRANSMITION VDXVEHMCUZQ26.1 Other seborrheic keratosisComments:LESION EXCICES WOUND CARER53.83 Other fatigueComments:PPNIAEOPI71.31 Abnormal electrocardiogram [ECG] [EKG]Comments:? A FLUTER CHANGES ON LAST EKG , [id number] Encounter for immunizationComments :IMMUNIZATION GIVEN ( SEE LIST )BENEFITS ,RISK AND SIDE EFFECTS DISSCUSED HANDOUT GIVEN Functional Status Functional Condition Comment Date Status Glasses Active Bifocal glasses Active Mental Status Description No Information Available Referrals Description No Information Available
--- OUTSIDE RECORDS SUMMARY | 2019-03-06 17:26 | XMS REPORT | Continuity of Care Document ---
:1945 External Reference #:[id number] Author Name Syd Chi M.D. 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 Tablets M25.561 M54.5 Nexium 1 by mouth every 90caps K21.0 [facility], 04/20/[address] day M.D. Vitamin D3 1 by mouth [facility] 90tabs E55.9 [facility]Unit day M.D. Tablets Advair Diskus Inhale One puff By 180units J44.9 [facility] Mouth Twice A Day M.D. 100-50mcg/Dose Aerosol J41.1 Olanzapine Take One Tablet By 90tabs F31.81 [facility] , 10mg Tablets Mouth Every Day M.D. F41.9 F33.9 Clonazepam 1 tab by mouth 60tabs F41.9 [facility], 0.5mg Tablets twice a day as M.D. needed G47.00 F31.81 Ipratropium use nebulizer every 180ml J44.9 [facility] [place]/Albuterol Sulfate 4 hours as needed M., M.D. for shortness of 0.5-2.5(3)mg/3ML Solution breath Fluticasone Propionate 2 sprays in each 48gm J30.9 [facility] 50mcg/Act nostril every day M., M.D. Suspension as needed Pantoprazole Sodium take one tablet by 90tabs K21.9 [facility] 40mg Table[address] mouth every day M., M.D. K30 Finasteride Take One Tablet By 90tabs N40.1 [facility], 5mg Tablets Mouth Every Day M.D. R35.1 Immunizations CPT Code Status Date Vaccine Reaction Lot # [id number] Given 02/28/2019 Pneumococcal Conjugate [id number] Vaccine 13 Valent For Intramuscular Use 79134 Given 02/26/2019 Flu Virus Vaccine, [id number] Quadrivalent, Slit Virus, Im Use [id number] Given 02/24/2016 Flu Vaccine 3+Yrs [id number] Old(Fluzone) [id number] Ordered 03/13/[address] CARRERA GAVE PNEUMO 23 IN 02/2014 Vital Signs Date Vital Result Comment 02/28/2019 9:38am BP Systolic 140 mmHg BP Diastolic 59 mmHg Height 70 inches 5'10" Weight 219.00 lb BMI (Body Mass Index) 31.4 kg/m2 Heart Rate 55 /min Respiratory Rate 16 /min 02/26/2019 1:20pm BP Systolic 118 mmHg BP Diastolic 62 mmHg Height 70 inches 5'10" Weight 219.00 lb BMI (Body Mass Index) 31.4 kg/m2 Heart Rate 63 /min Respiratory Rate 16 /min Results Test Date Facility Test Result H/L Range Note Laboratory test 02/28/2019 [facility] TSH, Ultrasenstive <pending> finding [facility] (607)- - Vitamin D 25 Hydroxy <pending> Laboratory test 02/28/2019 [facility] Hemoglobin A1c <pending> finding [facility] (607)- - Hemoglobin A1c 09/25/2018 [facility] Hemoglobin A1c @ 5.7 % (4.0-6. 1 [facility] 0) (607)- - Est Average Glucose 117 mg/dL Laboratory test 09/25/2018 [facility] 25 Hydroxy Vit D 19 ng/mL Low (31 -100) 2 finding [address] [facility] @ (607)- - Lipid Extended 09/25/2018 [facility] Appearance CLEAR (Clear) Panel [facility] (607)- - Cholesterol @ 253 mg/dL High (0-200) Triglyceride @ 330 mg/dL High (30-200) HDL Cholesterol @ 37 mg/dL Low (>40) 3 Chol/HDL Ratio 6.8 RATIO 4 Direct LDL @ 154 mg/dL High (<130) 5 VLDL (Calc) 62 mg/dL High (0-30) Laboratory test 09/25/2018 [facility] CRP, Sensitive @ 0.6 mg/L 6 finding [facility] (607)- - Lyme Disease 09/25/2018 [facility] Lyme Igm/Igg AB NEGATIVE (Neg) 7 Antibodies Igg/Igm [facility] @ (607)- - Laboratory test 09/25/2018 [facility] TSH,Ultrasensiti 2.390 mIU/L ( 0.360- finding [address] [facility] ve @ 4.170) (607)- - Free Thyroxine @ 0.97 ng/dL (0.76-1.46) Esr 13 mm/h (0-20) CMP 09/25/2018 [facility] Sodium 137 mmol/L (136-145) [facility] [...] >60 ml/min/1.73m2 (>59) GFR Interpretation <SEE NOTE> 8 CBC With Diff 09/25/2018 [facility] WBC 4.0 10*3/uL Low (4.1-11.0) [facility] (607)- - RBC 4.04 10*6/uL Low (4.60-6.10) HGB 12.7 g/dL Low (13.5-18.0) HCT 38.1 % Low (41.0-53.0) MCV 94.4 fL (80.0-95.0) MCH 31.6 pg (27.0-32.0) MCHC 33.4 g/dL (32.0-36.0) RDW 13.5 % (10.5-14.5) PLT 307 10*3/uL (150-450) MPV 9.0 fL (7.1-10.7) Neut % 58.4 % (35.0-75.0) Lymph % 27.2 % (16.0-52.0) Spink % 12.6 % High (0.0-8.0) Eos % 1.3 % (0.0-5.0) Baso % 0.5 % (0.0-4.0) Neut # 2.3 10*3/uL (1.8-7.7) Lymph # 1.1 10*3/uL Low (1.2-4.8) Spink # 0.5 10*3/uL (0.0-0.8) Eos # 0.1 10*3/uL (0.0-0.5) Baso # 0.0 10*3/uL (0.0-0.2) 1 Performed using Siemens [place] immunoassay. Care must be taken when interpreting HbA1c results in patients with a hemoglobin variant or decreased erythrocyte lifespan. Values 5.7 - 6.4% suggest prediabetes. Values >=6.5% are diagnostic for diabetes. REFERENCE: DIABETES CARE 2018: 41(S13-S27). 2 A REVIEW OF THE LITERATURE SUGGESTS THE FOLLOWING RANGES FOR THE CLASSIFICATION OF 25-OH VITAMIN D STATUS: VITAMIN D STATUS 25-OH VITAMIN D DEFICIENCY <20 NG/ML INSUFFICIENCY 20-30 NG/ML SUFFICIENCY 31 - 100 NG/ML TOXICITY > 100 NG/ML A PEDIATRIC REFERENCE RANGE HAS NOT BEEN ESTABLISHED USING THIS METHOD. 3 PER NCEP ATP III GUIDELINES: RESULTS LOWER THAN 40 MG/DL ARE SUGGESTIVE OF INCREASED RISK FOR CORONARY ARTERY DISEASE. RESULTS > OR = TO 60 MG/DL ARE CONSIDERED A NEGATIVE RISK FACTOR. 4 INTERPRETATION OF CHOL-HDL RATIO CHD RISK FEMALE MALE VERY HIGH >8.3 >14.3 HIGH 5.6- 8.3 6.7- 14.3 AVERAGE 3.7- 5.6 4.0- 6.7 BELOW AVERAGE 2.5- 3.7 2.7- 4.0 PROTECTED <2.5 <2.7 5 PER NCEP ATP III GUIDELINES: OPTIMAL < 100 NEAR OPTIMAL 100 - 129 BORDERLINE HIGH 130 - 159 HIGH 160 - 189 VERY HIGH > 189 6 RELATIVE RISK CATEGORY AND AVERAGE hs-CRP LEVEL: LOW RISK < 1.0 MG/L AVERAGE RISK 1.0 to 3.0 MG/L HIGH RISK > 3.0 MG/L 7 A Negative serologic test for Lyme Disease indicates no serologic evidence of infection with B burgdorferi at the time this specimen was collected. A repeat specimen should be collected in 2 to 4 weeks if clinically indicated. 8 NORMAL KIDNEY FUNCTION OR MILD DISEASE - GFR >OR= 60 CHRONIC KIDNEY DISEASE - GFR 15 - 59 RENAL FAILURE - GFR <15 Est. GFR calculation based on the MDRD study equation, which assumes a steady state for creatinine. Est. GFR should not be used for medication dosing. Procedures Date Code Description Status 09/27/2018 11451 EKG Completed 09/25/2018 65610 EKG Completed Medical Devices Description No Information Available Encounters Type Date Location Provider Dx Diagnosis Office Visit 02/28/2019 [facility] Syd Chi, E78.2 Mixed hyperlipidemia 9:45a M.D. J44.9 Chronic obstructive pulmonary disease, unspecified [...] [EKG] Z23 Encounter for immunization Office Visit 02/26/2019 1:30p [facility] Alon, Dayarmando E78.2 Mixed hyperlipidemia Addison Rivas J44.9 Chronic [...] Encounter for immunization Office Visit 09/27/2018 1:30p [facility] Alon Dayarmando E78.2 Mixed hyperlipidemia Addison Rivas J44.9 Chronic [...] electrocardiogram [ECG] [EKG] Office Visit 09/25/2018 1:15p [facility] Syd Chi E78.2 Mixed hyperlipidemia Addison Rivas [...] abnormal findings Assessments Date Code Description Provider 02/28/2019 E78.2 Mixed hyperlipidemia Syd Chi M.D. 02/28/2019 J44.9 Chronic obstructive pulmonary disease, Syd Chi M.D. unspecified 02/28/2019 K21.0 Gastro-esophageal reflux disease with Syd Chi M.D. esophagitis 02/28/2019 M15.9 Polyosteoarthritis, unspecified Syd Chi M.D. 02/28/2019 L20.9 Atopic dermatitis, unspecified Syd Chi M.D. 02/28/2019 J30.9 Allergic rhinitis, unspecified Syd Chi M.D. 02/28/2019 R00.1 Bradycardia, unspecified Syd Chi M.D. 02/28/2019 E55.9 Vitamin D deficiency, unspecified Syd Chi M.D. 02/28/2019 C61 Malignant neoplasm of prostate Syd Chi M.D. 02/28/2019 R73.01 Impaired fasting glucose Syd Chi M.D. 02/28/2019 N40.1 Benign prostatic hyperplasia with lower Syd Chi M.D. 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 02/28/2019 M54.5 Low back pain Syd Chi M.D. 02/28/2019 M25.561 Pain in right knee Syd Chi M.D. 02/28/2019 M25.559 Pain in unspecified hip Syd Chi M.D. 02/28/2019 M79.606 Pain in leg, unspecified Syd Chi M.D. 02/28/2019 M25.529 Pain in unspecified elbow Syd Chi M.D. 02/28/2019 K30 Functional dyspepsia Syd Chi M.D. 02/28/2019 R35.1 Nocturia Syd Chi M.D. 02/28/2019 F31.81 Bipolar II disorder Syd Chi M.D. 02/28/2019 F41.9 Anxiety disorder, unspecified Syd Chi M.D. 02/28/2019 G47.00 Insomnia, unspecified Syd Chi M.D. 02/28/2019 H53.30 Unspecified disorder of binocular vision Syd Chi M.D. 02/28/2019 Z96.643 Presence of artificial hip joint, bilateral Syd Chi M.D. 02/28/2019 M79.643 Pain in unspecified hand Syd Chi M.D. 02/28/2019 R06.02 Shortness of breath Syd Chi M.D. 02/28/2019 B02.9 Zoster without complications Syd Chi M.D. 02/28/2019 L82.1 Other seborrheic keratosis Syd Chi M.D. 02/28/2019 R53.83 Other fatigue Syd Chi M.D. 02/28/2019 R94.31 Abnormal electrocardiogram [ECG] [EKG] Syd Chi M.D. 02/28/2019 Z23 Encounter for immunization Syd Chi M.D. 02/26/2019 E78.2 Mixed hyperlipidemia Syd Chi M.D. [...] Chi M.D. 02/26/2019 M54.5 Low back pain Syd Chi M.D. 02/26/2019 M25.561 Pain in right [...] Chi M.D. 02/26/2019 Z23 Encounter for immunization Syd Chi M.D. 09/27/2018 E78.2 Mixed hyperlipidemia Syd Chi [...] M.D. 09/27/2018 C61 Malignant neoplasm of prostate ySd Chi M.D. 09/27/2018 R73.01 Impaired fasting glucose [...] Chi M.D. 09/27/2018 G47.00 Insomnia, unspecified Syd Cih M.D. 09/27/2018 H53.30 Unspecified disorder of binocular [...] M.D. 09/25/2018 M79.606 Pain in leg, unspecified Syd Chi M.D. 09/25/2018 M25.529 Pain in unspecified [...] M.D. examination with abnorma Plan of Treatment 02/28/2019 - Syd Chi M.D.E78.2 Mixed hyperlipidemiaComments:DIET REVIEWED CONTINUE DIETWT LOSSF/U LAB FBWFollow up:2 weeks.J44.9 Chronic obstructive pulmonary disease, unspecifiedComments:INCREASE PO FLUIDREST NEB OR MDI AND /OR VRMOMMK78.0 Gastro-esophageal reflux disease with esophagitisComments:AVOID CAFFEINE, ETOH AND SPICY FOODSTUMS OR MYLANTA PRN CALL WITH PROBLEMS OR LIEWRRNXZ65.9 Polyosteoarthritis, unspecifiedComments: EXERCISE/HEAT/MESSAGETYLENOL OR MOTRIN PRNAVOID HEAVY LIFTINGWT LOSSL20.9 Atopic dermatitis, unspecifiedComments:SKIN CARE INSTRUCTIONS LOTION OR BABY OIL 2-3 APPLICATION PER DAYUSE MOISTURIZING SOAPAVOID PROLONGED WATER EXPOSUREAVOID USING HOT WATER IN WUULDQQ08.9 Allergic rhinitis, unspecifiedComments:INCREASE PO FLUID USE ANTIHISTAMINE PRN SECOND HAND SMOKING FLLUWLILIK36.1 Bradycardia, unspecifiedComments:STABLE AND QKTZSSOGDSFXK33.9 Vitamin D deficiency, unspecifiedComments:INCREASE EXPOSURE TO SUNREVIEW OF DIETC61 Malignant neoplasm of prostateComments:F/U WITH UROLOGY F/U WITH CENVIIMVC48.01 Impaired fasting glucoseComments:F/U HGAICFS QAC AN HS PRNLOW GLUCOSE DIETN40.1 Benign prostatic hyperplasia with lower urinary tract symptomsComments:F/U WITH UROLOGY USE RX KOMSGCMHGAAPD45.21 Alcohol dependence, in remissionComments:OBSERVE COUNCELLING AND RFZELFYOOLQF60.5 Low back painComments:EXERCISE/HEAT /MESSAGEAVOID HEAVY LIFTING WT LOSSTYLENOL OR MOTRIN PRNM25.561 Pain in right kneeComments:EXERCISE/HEAT /MESSAGEAVOID HEAVY LIFTING WT LOSSTYLENOL OR MOTRIN PRNM25.559 Pain in unspecified hipComments: EXERCISE/HEAT/MESSAGETYLENOL OR MOTRIN PRNAVOID HEAVY LIFTINGWT LOSSM79.606 Pain in leg, unspecifiedComments:TYLENOL OR MOTRIN PRN EXERCISE/HEAT/ VTAXLEBG60.529 Pain in unspecified elbowComments:EXERCISE/HEAT/MESSAGE TYLENOL OR MOTRIN PRNAVOID HEAVY LIFTING SIMONE WRAP PRNELEVATE PRNK30 Functional dyspepsiaComments:AVOID CAFFEINE, ETOH AND SPICY FOODSTUMS OR MYLANTA PRN CALL WITH PROBLEMS OR JNBHZYQKO12.1 NocturiaComments:USE RX GIVEN YPKTNKUG33.81 Bipolar II disorderComments:COUNCELLING AND REASSURANCE RELAXATION TECHNIQUES DISCUSSED COUNSELED RE: STRESSORS IN LIFEF41.9 Anxiety disorder, unspecifiedComments:COUNCELLING AND REASSURANCE RELAXATION TECHNIQUES DISCUSSEDCOUNSELED RE: STRESSORS IN LIFE AVOID ALLENERGY/HIGH CAFFEINE DRINKS DUR WYKXUJJE69.00 Insomnia, unspecifiedComments:COUNCELLING AND REASSURANCE RELAXATION TECHNIQUES DISCUSSED COUNSELED RE: STRESSORS IN LIFE TYLENOLPM OR MOTRIN PM PRN DUR QJQYFIRN16.30 Unspecified disorder of binocular visionComments:USE GLASSES/CONTACTSF/U WITH GWBCHBMVIPVPBX61.643 Presence of artificial hip joint, bilateralComments:F/U WITH VUYKZN22.643 Pain in unspecified handComments:EXERCISE/HEAT/MESSAGETYLENOL OR MOTRIN PRNAVOID HEAVY LIFTINGWT LOSS DUR AYXSLAQP25.02 Shortness of breathComments:INCREASE PO FLUIDRESTNEB OR MDI AND /OR VXNSKXE64.9 Zoster without complicationsComments: SKIN CARETRANSMITION VBYDCLRYTYP68.1 Other seborrheic keratosisComments:LESION EXCICES WOUND CARER53.83 Other fatigueComments:LZQVOVVJP73.31 Abnormal electrocardiogram [ECG] [EKG]Comments:? A FLUTER CHANGES ON LAST EKG , MTROFZOWZ10 Encounter for immunizationComments:IMMUNIZATION GIVEN ( SEE LIST ) BENEFITS ,RISK AND SIDE EFFECTS DISSCUSED HANDOUT GIVEN Functional Status Functional Condition Comment Date Status Glasses Active Bifocal glasses Active Mental Status Description No Information Available Referrals Description No Information Available
[2019-03-06] MEDS ORDERED: NS 0.9% 1000 ML** 1,000 ML IV ONE (17:37)
[2019-03-06] MEDS ORDERED: Iodixanol* (CONTRAST) 320 MG/ML 100 ML SDV IV ONE (17:42)
[2019-03-06 18:35] LABS: ABS Lymphocytes 1.3 10^3/ul (1.0-4.8); ABS Monocytes 0.5 10^3/ul (0-0.8); ABS Neutrophils 2.3 10^3/ul (1.5-7.7); Hematocrit 38 % (42-52); Hemoglobin 12.9 g/dL (14.0-18.0); Lymphocyte % 31.5 %; Mean Corpuscular HGB Conc 34 g/dL (31-36); Mean Corpuscular Hemoglobin 32 pg (27-31); Mean Corpuscular Volume 95 fL (80-94); Mean Platelet Volume 8.4 fL (7.4-10.4); Nucleated Red Blood Cells % 0.1; Platelet Count 277 10^3/uL (150-450); Red Blood Count 4.04 10^6 /uL (4.18-5.48); Red Cell Distribution Width 13 % (10-15); White Blood Count 4.1 10^3/uL (3.5-10.8)
[2019-03-06 18:42] LABS: INR 1.03 (0.82-1.09)
[2019-03-06 18:54] LABS: Albumin 4.1 g/dL (3.2-5.2); Albumin/Globulin Ratio 1.6 (1-3); BUN/Creatinine Ratio 10.1 (8-20); Calcium 9.2 mg/dL (8.6-10.3); EGFR African American 60.8 (>60); EGFR Non-African American 50.2 (>60); Globulin 2.6 g/dL (2-4); Potassium 4.7 mmol/L (3.5-5.0); Total Bilirubin 0.6 mg/dL (0.2-1.0); Total Protein 6.7 g/dL (6.4-8.9)
[2019-03-06 19:39] LABS: Urine Appearance Clear; Urine Bilirubin Negative (Negative); Urine Blood Negative (Negative); Urine Color Straw; Urine Glucose Negative (Negative); Urine Ketones Negative (Negative); Urine Nitrite Negative (Negative); Urine Protein Negative (Negative); Urine Specific Gravity 1.011 (1.010-1.030); Urine Urobilinogen Negative (Negative)
[2019-03-06 19:55] VITALS: BP 144/69
== END 2019-03-06 20:25 | disposition short-term general hospital (02) ==
LOC: ED 16:41
DX: H54.62 Unqualified visual loss, left eye, normal vision right eye (principal); H53.9 Unspecified visual disturbance; R00.1 Bradycardia, unspecified; Z87.891 Personal history of nicotine dependence; E78.00 Pure hypercholesterolemia, unspecified; K21.9 Gastro-esophageal reflux disease without esophagitis; F41.9 Anxiety disorder, unspecified; F32.9 Major depressive disorder, single episode, unspecified; Z79.899 Other long term (current) drug therapy
CPT/HCPCS: 36415; 70450; 70496; 70498; 80053; 81003; 83605; 84484; 85025; 85610; 93005; 96360; 99284; Q9967

== ENCOUNTER 2019-03-18 10:45 | Emergency (ER) | payer MEDICARE, BC ==
--- NOTE | 2019-03-18 11:08 | ED ---
Dizziness - HPI Summary HPI Summary: This patient is a 73 year old male presenting to [facility] accompanied by his with a chief complaint of dizziness since 3 days ago. He reports confusion, nausea and vomiting. He states he had a severe eye infection where he was admitted via transfer at [facility]. He states he lost his vision in his left eye during his left infection, but was able to regain vision after treatment. His states he was discharged 8 days ago but has experienced an increase in problems not involving his vision. He states he has had a headache-like pressure in the back of his head that he feels is contributing to the dizziness. He says movement aggravates his nausea. He states he saw Ophthalmology post discharge and they made a change to his medications to no relief. 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 Onset/Duration: Still Present Character: Dizzy - Allergies/Home Medications Allergies/Adverse Reactions: Allergies Allergy/AdvReac Type Severity Reaction Status Date / Time fentanyl Allergy Agitation Verified 03/06/19 17:25 morphine Allergy Agitation Verified 03/06/19 17:25 Home Medications: Home Medications Ofloxacin 0.3% (Eye Drop) [Ocuflox OPTH 0.3% (Eye Drop)] 1 drop LEFT EYE QID [History Confirmed 03/18/19] Sulfamethoxazole/Trimethoprim [Sulfamethoxazole-Tmp Ds Tablet] 1 each PO Q12HR 03/18/19 [History Confirmed 03/18/19] ValACYclovir (*) [Valtrex 1 GM(*)] 1 gm PO Q8HR 03/18/19 [History Confirmed ] Voriconazole TAB (NF) 200 mg PO Q12H 03/18/19 [History Confirmed 03/18/19] prednisoLONE 1% OPHTH.SUSP* [Pred Forte 1%*] 1 drop LEFT EYE QID 03/18/19 [ History Confirmed 03/18/19] PMH/Surg Hx/FS Hx/Imm Hx Endocrine/Hematology History: Denies: Hx Diabetes Cardiovascular History: Reports: Hx Hypercholesterolemia Denies: Hx Hypertension Respiratory History: Reports: Hx Asthma, Hx Chronic Obstructive Pulmonary Disease (COPD) GI History: Reports: Hx Gastroesophageal Reflux Disease - ON MEDICATION History: Denies: Hx Renal Disease Musculoskeletal History: Reports: Hx Arthritis - LOWER BACK Sensory History: Reports: Hx Contacts or Glasses - GLASSES Denies: Hx Hearing Aid Opthamlomology History: Reports: Hx Contacts or Glasses - GLASSES Psychiatric History: Reports: Hx Anxiety - ON MEDICATION, Hx Depression - ON MEDICATION - Cancer History Cancer Type, Location and Year: prostrate cancer dx 01/2016. DOing well with treatment started 5 weeks ago - Surgical History Surgery Procedure, Year, and Place: [place] [facility] [place] [facility] [place] [facility] [place] Anesthesia Reactions: Yes - ALLERGY TO MORPHINE Infectious Disease History: No Infectious Disease History: Denies: Hx Clostridium Difficile, Hx of Known/Suspected MRSA, Hx Shingles, Hx Tuberculosis, Hx Known/Suspected VRSA, History Other Infectious Disease, Traveled Outside the in Last 30 Days - Family History Known Family History: Positive: Cardiac Disease Family History: Cancer - Social History Alcohol Use: None Alcohol Amount: sober 27 years Substance Use Type: Reports: None Substance Use Comment - Amount & Last Used: medical marijuana Smoking Status (MU): Former Smoker Review of Systems Positive: Vomiting, Nausea Neurological: Other - Dizziness, Confusion Positive: Headache All Other Systems Reviewed And Are Negative: Yes Physical Exam - Summary Physical Exam Summary: Appearance: The patient is well-nourished in no acute distress and in no acute pain. Skin: The skin is warm and dry, and skin color reflects adequate perfusion. HEENT: The head is normocephalic and atraumatic. The pupils are equal and reactive. The conjunctivae are clear and without drainage. Nares are patent and without drainage. Mouth reveals moist mucous membranes, and the throat is without erythema and exudate. The external ears are intact. The ear canals are patent and without drainage. The tympanic membranes are intact. Neck: The neck is supple with full range of motion and non-tender. There are no carotid bruits. There is no neck vein distension. Respiratory: Chest is non-tender. Lungs are clear to auscultation and breath sounds are symmetrical and equal. Cardiovascular: Heart is regular rate and rhythm. There is no murmur or rub auscultated. There is no peripheral edema and pulses are symmetrical and equal. Abdomen: The abdomen is soft and non-tender. There are normal bowel sounds heard in all four quadrants and there is no organomegaly palpated. Musculoskeletal: There is no back tenderness noted. Extremities are non-tender with full range of motion. There is good capillary refill. There is no peripheral edema or calf tenderness elicited. Neurological: Patient is alert and oriented to person, place and time. The patient has symmetrical motor strength in all four extremities. Cranial nerves are grossly intact. Deep tendon reflexes are symmetrical and equal in all four extremities. Psychiatric: The patient has an appropriate affect and does not exhibit any anxiety or depression. Triage Information Reviewed: Yes Vital Signs On Initial Exam: Initial Vitals Temp Pulse Resp BP Pulse Ox 97.9 F 75 18 141/81 96 03/18/19 10:46 03/18/19 10:46 03/18/19 10:46 03/18/19 10:46 03/18/19 10:46 Vital Signs Reviewed: Yes Procedures - Sedation Patient Received Moderate/Deep Sedation with Procedure: No - Lumbar Puncture Lower Posterior Midline Position: Sitting - Opening pressure 14 cm of water Aseptic Technique: Local Anesthesia, Lidocaine Anesthesia Used: 1.0% Lido Spinal Needle Used: 22 Gauge - it took a couple of passes but I was able to obtain CSF slowly that was grossly clear. He tolerated the procedure excellently Diagnostics - Vital Signs Vital Signs Temp Pulse Resp BP Pulse Ox 03/18/19 10:46 97.9 F 75 18 141/81 96 - Laboratory Result Diagrams: 03/18/19 11:41 03/18/19 11:40 Lab Statement: Any lab studies that have been ordered have been reviewed, and results considered in the medical decision making process. - CT Brain CT Interpretation Completed By: Radiologist Summary of CT Findings: 1. No acute intracranial pathology. 2. Diffuse involutional change. 3. No abnormal enhancement. ED Provider has reviewed this report. - EKG 1126 Cardiac Rate: NL - 61 BPM EKG Rhythm: Sinus Rhythm Summary of EKG Findings: NSR. ED Provider has reviewed and interpreted this EKG. Dizzy Course/Dx - Course Course Of Treatment: Mr. Garcia presents complaining of about 2 days of a posterior headache accompanied by some difficulty walking. He feels like he has to hold onto things in order walk. He's had no speech or visual problems. He did have a fairly sudden left visual disturbance a couple weeks ago. He ended up getting a workup here in the emergency department and [facility] where they apparently treated him with antibiotics, antivirals and antifungals. Both systemically and topically. He regained his site in the left eye. He has followed up with the tool and die manager since she's been home and everything was okay. It isn't entirely unclear to me what was going on but I was concerned that he may have spread of whatever the initial infection was which apparently was not identified. I obtained a contrasted and noncontrasted CT of the brain which showed no acute pathology. Labs were unremarkable. LP was obtained and showed 67 red blood cells consistent with the traumatic nature of the tap. He had a very slight elevation of his protein consistent with having the red blood cells present. White blood cells were 0. I spoke with Dr. Joyner several times during care the patient and he felt that we could treat him symptomatically at this point. - Diagnoses Provider Diagnoses: Tension headache - Provider Notifications Discussed Care Of Patient With: Joel Joyner - Neurology Time Discussed With Above Provider: 11:22 Discharge ED - Sign-Out/Discharge Documenting (check all that apply): Patient Departure - Discharge - Discharge Plan Condition: Stable Disposition: HOME Prescriptions: traMADol TAB* [Ultram*] 50 mg PO Q6HR PRN #20 tab MDD 4 PRN Reason: Pain Patient Education Materials: Tension Headache (ED) Referrals: Syd Chi MD [Primary Care Provider] - Additional Instructions: Return to ED with new or worsening symptoms. - Billing Disposition and Condition Condition: STABLE Disposition: Home - Attestation Statements Document Initiated by Cam: Yes Documenting Manuelibe: Ravindra Newberry Provider For Whom Cam is Documenting (Include Credential): Neftali Littlejohn MD Scribtoi Attestation: IRavindra, scribed for Neftali Littlejohn MD on 03/18/19 at 1809. Scribe Documentation Reviewed: Yes Provider Attestation: The documentation as recorded by the Ravindra rios accurately reflects the service I personally performed and the decisions made by me, Neftali Littlejohn MD Status of Scribe Document: Viewed
[2019-03-18 11:48] LABS: ABS Lymphocytes 0.9 10^3/ul (1.0-4.8); ABS Monocytes 0.3 10^3/ul (0-0.8); ABS Neutrophils 2.5 10^3/ul (1.5-7.7); Eosinophil % 0.4 %; Hematocrit 39 % (42-52); Hemoglobin 13.2 g/dL (14.0-18.0); Lymphocyte % 24.1 %; Mean Corpuscular HGB Conc 34 g/dL (31-36); Mean Corpuscular Hemoglobin 33 pg (27-31); Mean Corpuscular Volume 95 fL (80-94); Mean Platelet Volume 8.1 fL (7.4-10.4); Nucleated Red Blood Cells % 0.1; Platelet Count 313 10^3/uL (150-450); Red Blood Count 4.06 10^6 /uL (4.18-5.48); Red Cell Distribution Width 13 % (10-15); White Blood Count 3.7 10^3/uL (3.5-10.8)
[2019-03-18 11:59] LABS: INR 1.05 (0.82-1.09)
--- OUTSIDE RECORDS SUMMARY | 2019-03-18 12:04 | XMS REPORT | Continuity of Care Document ---
:1945 External Reference #:[id number] Author Name Mckay Dayon, OD Address [address] [place] [address] Care Team Providers Name Role Phone Jayant Wise MD - Otorhinolaryngologist Care Team Information Dispute Coordinator [phone] Problems Active Problems Provider Date Vitreous degeneration Jayant Walters M.D. Onset: 09/10/2014 Social History Type Date Description Comments Sex Unknown ETOH Use Denies alcohol use Tobacco Use Start: Unknown PT is smoking medical marijuania Smoking Status Reviewed: 03/15/19 PT is smoking medical marijuania Allergies, Adverse Reactions, Alerts Active Allergies Reaction Severity Comments Date NKDA 09/10/2014 Morphine 03/15/2019 Medications Active Medications SIG Qnty Indications Ordering Date Provider Finasteride Unknown 1mg Tablets Pantoprazole Sodium Unknown Tablets DR Farah Unknown Tablets Fluticasone Unknown Propionate 50mcg/Act Suspension Albuterol Sulfate prn Unknown (2.5mg/3ML) 0.083% Nebulizer Clonazepam Unknown Tablets Acetaminophen-Codeine Unknown #3 300-30mg Tablets Valacyclovir HCL Unknown 1gm Tablets Ofloxacin 1 drop four times a Unknown (Ophthalmic) day left eye x 1 0.3% week Solution Atropine Sulfate one drop twice a day Unknown 1% left eye Solution Voriconazole Unknown 200mg Tablets Senna 2 tabs by mouth as Unknown 8.6mg Tablets needed for constipation Sulfamethoxazole/Trim Unknown ethoprim DS 800-160mg Tablets Prednisolone Acetate 1 drop right eye Unknown 1% four times a day Suspension Immunizations Description No Information Available Vital Signs Date Vital Result Comment 09/10/2014 11:05am Intraocular Pressure Right Eye 14 mmHg Intraocular Pressure Left Eye 15 mmHg Results Description No Information Available Procedures Description No Information Available Medical Devices Description No Information Available Encounters Description No Information Available Assessments Date Code Description Provider 03/15/2019 Z96.1 Presence of intraocular lens Mckay Caldwell OD Plan of Treatment Future Appointment(s):03/19/2019 3:00 pm - Mckay Caldwell OD at [id number] - Mckay Caldwell ODZ96.1 Presence of intraocular lensFollow up:4-5 days f/u, sooner PRN Functional Status Description No Information Available Mental Status Description No Information Available Referrals Description No Information Available
--- OUTSIDE RECORDS SUMMARY | 2019-03-18 12:04 | XMS REPORT | Continuity of Care Document ---
:1945 External Reference #:[id number] Author Name Syd Chi M.D. 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 Capsules Evening Ventolin HFA inhale two puffs 36gm J44.9 [...] 1 by mouth every [address] [facility], 09/09/2016 50mg hours as needed M.D. Tablets M25.561 M54.5 Nexium 1 by mouth every 90caps K21.0 Alon, armando Rivas, 04/20/[address] day M.D. Vitamin D3 1 by mouth every 90tabs E55.[address] [facility], 09/18/2015 5000Unit day M.D. Tablets Advair Diskus Inhale One puff By 180units J44.[address] [facility], 2015 Mouth Twice A Day M.D. 100-50mcg/Dose Aerosol J41.1 Voriconazole H44.132 Unknown 200mg Tablets Valacyclovir HCL H44.132 Unknown 1gm Tablets Sulfamethoxazole/Trimeth H44.132 Unknown oprim DS 800-160mg Tablets Prednisolone Acetate H44.132 Unknown 1% Suspension Ofloxacin (Ophthalmic) H44.132 Unknown 0.3% Solution Atropine Sulfate H44.132 Unknown 1% Solution Finasteride Take One Tablet 90tabs N40.1 AlonSyd pedersen, 5mg Tablets By Mouth Every M.D. Day R35.1 Pantoprazole Sodium take one tablet by 90tabs K21.9 AlonSyd pedersen, 40mg mouth every day M.D. Tablets K30 Fluticasone Propionate 2 sprays in each 48gm J30.9 Alon, armando Rivas, nostril every day as M.D. 50mcg/Act Suspension needed Ipratropium use nebulizer every [address] [facility], [place]/Albuterol hours as needed for M.D. Sulfate shortness of breath 0.5-2.5(3)mg/3ML Solution Clonazepam 1 tab by mouth twice 60tabs F41.9 AlonSyd pedersen, 0.5mg Tablets a day as needed M.DMichelle G47.00 F31.81 Olanzapine Take One Tablet By 90tabs F31.81 Syd Chi, 10mg Tablets Mouth Every Day M.DMichelle F41.9 F33.9 Medications Administered in Office Medication SIG Qnty Indications Ordering Provider Date Admin Of Pneumovax Syd Chi M.D. 02/28/2019 Injection Immunizations CPT Code Status Date Vaccine Reaction Lot # [id number] Given 02/28/2019 Pneumococcal Conjugate [id number] Vaccine 13 Valent For Intramuscular Use 39616 Given 02/26/2019 Flu Virus Vaccine, [id number] Quadrivalent, Slit Virus, Im Use [id number] Given 02/24/2016 Flu Vaccine 3+Yrs [id number] Old(Fluzone) [id number] Ordered 03/13/[address] CARRERA GAVE PNEUMO 23 IN 02/2014 Vital Signs Date Vital Result Comment 03/14/2019 9:33am BP Systolic 122 mmHg BP Diastolic 59 mmHg Height 70 inches 5'10" Weight 225.00 lb BMI (Body Mass Index) 32.3 kg/m2 Heart Rate 71 /min Respiratory Rate 16 /min 02/28/2019 9:38am BP Systolic 140 mmHg BP Diastolic 59 mmHg Height 70 inches 5'10" Weight 219.00 lb BMI (Body Mass Index) 31.4 kg/m2 Heart Rate 55 /min Respiratory Rate 16 /min Results Test Acquired Date Facility Test Result H/L Range Note CBC Auto 03/06/2019 [facility] White Blood 4.1 10^3/uL Normal 3.5- 10.8 Diff Count Red Blood Count 4.04 10^6/uL Low 4.18-5.48 Hemoglobin 12.9 g/dL Low 14.0-18.0 Hematocrit 38 % Low 42-52 Mean Corpuscular Volume 95 fL High 80-94 Mean Corpuscular Hemoglobin 32 pg High 27-31 Mean Corpuscular HGB Conc 34 g/dL Normal 31-36 Red Cell Distribution Width 13 % Normal 10-15 Platelet Count 277 10^3/uL Normal 150-450 Mean Platelet Volume 8.4 fL Normal 7.4-10.4 Abs Neutrophils 2.3 10^3/uL Normal 1.5-7.7 Abs Lymphocytes 1.3 10^3/uL Normal 1.0-4.8 Abs Monocytes 0.5 10^3/uL Normal 0-0.8 Abs Eosinophils 0.0 10^3/uL Normal 0-0.6 Abs Basophils 0.0 10^3/uL Normal 0-0.2 Abs Nucleated RBC 0.0 10^3/uL Granulocyte % 55.9 % Lymphocyte % 31.5 % Monocyte % 11.2 % Eosinophil % 1.0 % Basophil % 0.4 % Nucleated Red Blood Cells % 0.1 Inr/Protime 03/06/2019 [facility] Inr 1.03 Normal 0.82-1.09 1 Laboratory test 03/06/2019 [facility] Lactic Acid 1.3 mmol/L Normal 0.5-2.0 2 finding Comp Metabolic 03/06/2019 [facility] Sodium 136 mmol/L Normal 135- 145 Panel Potassium 4.7 mmol/L Normal 3.5-5.0 Chloride 103 mmol/L Normal 101-111 Co2 Carbon Dioxide 27 mmol/L Normal 22-32 Anion Gap 6 mmol/L Normal 2-11 Glucose 91 mg/dL Normal 70-100 Blood Urea Nitrogen 14 mg/dL Normal 6-24 Creatinine 1.39 mg/dL High 0.67-1.17 BUN/Creatinine Ratio 10.1 Normal 8-20 Calcium 9.2 mg/dL Normal 8.6-10.3 Total Protein 6.7 g/dL Normal 6.4-8.9 Albumin 4.1 g/dL Normal 3.2-5.2 Globulin 2.6 g/dL Normal 2-4 Albumin/Globulin Ratio 1.6 Normal 1-3 Total Bilirubin 0.60 mg/dL Normal 0.2-1.0 Alkaline Phosphatase 61 U/L Normal 34-104 Alt 15 U/L Normal 7-52 Ast 15 U/L Normal 13-39 Egfr Non- 50.2 >60 Egfr 60.8 >60 3 Laboratory test 03/06/2019 [facility] Troponin-I (TnI) 0.00 ng/mL < 0.04 4 finding Urinalysis Profile 03/06/2019 [facility] Urine Color Straw Urine Appearance Clear Urine Specific [place] 1.011 Normal 1.010-1.030 Urine pH 7.0 Normal 5-9 Urine Urobilinogen Negative Negative Urine Ketones Negative Negative Urine Protein Negative Negative Urine Leukocytes Negative Negative Urine Blood Negative Negative Urine Nitrite Negative Negative Urine Bilirubin Negative Negative Urine Glucose Negative Negative Hemoglobin A1c 02/28/2019 [facility] Hemoglobin A1c @ 5.7 % (4.0-6.0) 5 [address] [employer] [place] (607)- - Est Average Glucose 117 mg/dL PSA Free And Total 02/28/2019 [facility] PSA Total <0.1 ng/mL (0.0-4.0 ) [address] [employer] [place] (607)- - PSA Free <0.1 ng/mL PSA % Free NOT CALCULATED % 6 Laboratory 02/28/2019 [facility] TSH,Ultrasensitive @ 2.720 (0.360- 4.170) test finding [address] [employer] [place] mIU/L (607)- - 25 Hydroxy Vit D @ 25 ng/mL Low (31-100) 7 Lipid 02/28/2019 [facility] Cholesterol @ 270 mg/dL High (0-200) [address] [employer] [place] (607)- - Triglyceride @ 190 mg/dL (30-200) HDL Cholesterol @ 46 mg/dL (>40) 8 Chol/HDL Ratio 5.9 RATIO 9 LDL Chol (Calc) 186 mg/dL High (<130) 10 CMP 02/28/2019 [facility] Sodium 141 mmol/L (136-145) [address] [employer] [place] (607)- - Potassium 4.7 mmol/L (3.6-5.2) Chloride 108 mmol/L (100-108) Co2 27 mmol/L (22-31) Anion Gap 6 mmol/L Low (7-16) Urea Nitrogen 12 mg/dL (7-24) Creatinine 1.38 mg/dL High (0.80-1.30) BUN/Creat Ratio 8.7 RATIO Low (10.0-20.0) Glucose 94 mg/dL (70-99) Calcium 9.0 mg/dL (8.4-10.2) Total Protein 6.9 g/dL (6.4-8.2) Albumin 3.8 g/dL (3.2-4.5) Globulin 3.1 g/dL (2.7-4.3) Alb/Glob Ratio 1.2 RATIO Alkaline Phosphatase 72 U/L (45-117) Bilirubin,Total 0.6 mg/dL (0.0-1.0) Ast (Sgot) 13 U/L (11-39) Alt (SGPT) 21 U/L (12-78) GFR 51 ml/min/1.73m2 Low (>59) GFR ( Amer) >60 ml/min/1.73m2 (>59) GFR Interpretation <SEE NOTE> 11 CBC With Diff 02/28/2019 [facility] WBC 4.4 10*3/uL (4.1-11.0) [address] [employer] (607)- - RBC 4.19 10*6/uL Low (4.60-6.10) HGB 13.4 g/dL Low (13.5-18.0) HCT 39.7 % Low (41.0-53.0) MCV 94.8 fL (80.0-95.0) MCH 31.9 pg (27.0-32.0) MCHC 33.6 g/dL (32.0-36.0) RDW 13.2 % (10.5-14.5) PLT 290 10*3/uL (150-450) MPV 9.1 fL (7.1-10.7) Neut % 61.2 % (35.0-75.0) Lymph % 26.8 % (16.0-52.0) Luce % 9.6 % High (0.0-8.0) Eos % 1.8 % (0.0-5.0) Baso % 0.6 % (0.0-4.0) Neut # 2.7 10*3/uL (1.8-7.7) Lymph # 1.2 10*3/uL (1.2-4.8) Luce # 0.4 10*3/uL (0.0-0.8) Eos # 0.1 10*3/uL (0.0-0.5) Baso # 0.0 10*3/uL (0.0-0.2) CBC With Diff 09/25/2018 [facility] WBC 4.0 10*3/uL Low (4.1-11.0) [address] [employer] [place] (607)- - RBC 4.04 10*6/uL Low (4.60-6.10) HGB 12.7 g/dL Low (13.5-18.0) HCT 38.1 % Low (41.0-53.0) MCV 94.4 fL (80.0-95.0) MCH 31.6 pg (27.0-32.0) MCHC 33.4 g/dL (32.0-36.0) RDW 13.5 % (10.5-14.5) PLT 307 10*3/uL (150-450) MPV 9.0 fL (7.1-10.7) Neut % 58.4 % (35.0-75.0) Lymph % 27.2 % (16.0-52.0) Luce % 12.6 % High (0.0-8.0) Eos % 1.3 % (0.0-5.0) Baso % 0.5 % (0.0-4.0) Neut # 2.3 10*3/uL (1.8-7.7) Lymph # 1.1 10*3/uL Low (1.2-4.8) Luce # 0.5 10*3/uL (0.0-0.8) Eos # 0.1 10*3/uL (0.0-0.5) Baso # 0.0 10*3/uL (0.0-0.2) CMP 09/25/2018 [facility] Sodium 137 mmol/L (136-145) [address] [employer] [...] >60 ml/min/1.73m2 (>59) GFR Interpretation <SEE NOTE> 12 Laboratory 09/25/2018 [facility] TSH,Ultrasensitive @ 2.390 (0.360- 4.170) test finding [address] [facility] mIU/L (607)- - Free Thyroxine @ 0.97 ng/dL (0.76-1.46) Esr 13 mm/h (0-20) Lyme Disease 09/25/2018 [facility] Lyme Igm/Igg AB @ NEGATIVE (Neg) 13 Antibodies [address] [employer] [place] Igg/Igm (607)- - Laboratory test 09/25/2018 [facility] CRP, Sensitive @ 0.6 mg/L 14 finding [address] (607)- - Lipid Extended 09/25/2018 [facility] Appearance CLEAR (Clear) Panel [address] (607)- - Cholesterol @ 253 mg/dL High (0-200) Triglyceride @ 330 mg/dL High (30-200) HDL Cholesterol @ 37 mg/dL Low (>40) 15 Chol/HDL Ratio 6.8 RATIO 16 Direct LDL @ 154 mg/dL High (<130) 17 VLDL (Calc) 62 mg/dL High (0-30) Laboratory test 09/25/2018 [facility] 25 Hydroxy Vit D 19 ng/mL Low (31 -100) 18 finding [address] @ (607)- - Hemoglobin A1c 09/25/2018 [facility] Hemoglobin A1c @ 5.7 % (4.0-6.0) 19 [address] (607)- - Est Average Glucose 117 mg/dL 1 Standard intensity warfarin therapeutic range: 2.0-3.0 High intensity warfarin therapeutic range: 2.5-3.5 2 [place] Severe Sepsis and Septic Shock Management Bundle Measure requires all lactic acids initially measuring >2.0 mmol/L be repeated. 3 Because ethnic data is not always readily available, this report includes an eGFR for both -Americans and non- Americans. The National Kidney Disease Education Program (NKDEP) does not endorse the use of the MDRD equation for patients that are not between the ages of 18 and 70, are , have extremes of body size, muscle mass, or nutritional status, or are non- or non-. According to the National Kidney Foundation, irrespective of diagnosis, the stage of the disease is based on the level of kidney function: Stage Description GFR(mL/min/1.73 m(2)) 1 Kidney damage with normal or decreased GFR 90 2 Kidney damage with mild decrease in GFR 60-89 3 Moderate decrease in GFR 30-59 4 Severe decrease in GFR 15-29 5 Kidney failure <15 (or dialysis) 4 Troponin-I testing on Plasma Separator Tubes (PST) has a known false positive rate of 0.20-0.40%. All positive troponins reflex immediately to secondary confirmatory testing. Using the Fonmatch DxI 800 Access Immunoassay systems, the 99th percentile upper reference limit was demonstrated to be < 0.03 ng/mL. 5 Performed using Siemens Auberry immunoassay. Care must be taken when interpreting HbA1c results in patients with a hemoglobin variant or decreased erythrocyte lifespan. Values 5.7 - 6.4% suggest prediabetes. Values >=6.5% are diagnostic for diabetes. REFERENCE: DIABETES CARE 2018: 41(S13-S27). 6 % FREE PSA PROBABILITY OF CANCER 0 - 10% 56% 10 - 15% 28% 15 - 20% 20% 20 - 25% 16% GREATER THAN 25% 8% THE FREE PSA PERCENTAGE IS AN AID IN DISTINGUISHING PROSTATE CANCER FROM BENIGN PROSTATIC CONDITIONS IN MEN AGE 50 AND OLDER WITH A TOTAL PSA BETWEEN 3 AND 10 NG/ML AND NEGATIVE DIGITAL RECTAL EXAMINATION FINDINGS. PROSTATIC BIOPSY IS REQUIRED FOR THE DIAGNOSIS OF CANCER. (See: TONNY 1998; 279: 5334-8643) METHOD USED TO ASSAY BOTH FREE PSA AND TOTAL PSA IS SIEMENS TattvaTA LOCI CHEMILUMINESCENT IMMUNOASSAY (CALIBRATION TRACEABLE TO WHO 1998, 96/668). RESULTS SHOULD NOT BE INTERPRETED ABSOLUTE EVIDENCE FOR THE PRESENCE OR ABSENCE OF MALIGNANT DISEASE. VALUES OBTAINED WITH DIFFERENT ASSAY METHODS OR KITS CANNOT BE USED INTERCHANGEABLY. 7 A REVIEW OF THE LITERATURE SUGGESTS THE FOLLOWING RANGES FOR THE CLASSIFICATION OF 25-OH VITAMIN D STATUS: VITAMIN D STATUS 25-OH VITAMIN D DEFICIENCY <20 NG/ML INSUFFICIENCY 20-30 NG/ML SUFFICIENCY 31 - 100 NG/ML TOXICITY > 100 NG/ML A PEDIATRIC REFERENCE RANGE HAS NOT BEEN ESTABLISHED USING THIS METHOD. 8 PER NCEP ATP III GUIDELINES: RESULTS LOWER THAN 40 MG/DL ARE SUGGESTIVE OF INCREASED RISK FOR CORONARY ARTERY DISEASE. RESULTS > OR = TO 60 MG/DL ARE CONSIDERED A NEGATIVE RISK FACTOR. 9 INTERPRETATION OF CHOL-HDL RATIO CHD RISK FEMALE MALE VERY HIGH >8.3 >14.3 HIGH 5.6- 8.3 6.7- 14.3 AVERAGE 3.7- 5.6 4.0- 6.7 BELOW AVERAGE 2.5- 3.7 2.7- 4.0 PROTECTED <2.5 <2.7 10 PER NCEP ATP III GUIDELINES: OPTIMAL < 100 NEAR OPTIMAL 100 - 129 BORDERLINE HIGH 130 - 159 HIGH 160 - 189 VERY HIGH > 189 11 NORMAL KIDNEY FUNCTION OR MILD DISEASE - GFR >OR= 60 CHRONIC KIDNEY DISEASE - GFR 15 - 59 RENAL FAILURE - GFR <15 Est. GFR calculation based on the MDRD study equation, which assumes a steady state for creatinine. Est. GFR should not be used for medication dosing. 12 NORMAL KIDNEY FUNCTION OR MILD DISEASE - GFR >OR= 60 CHRONIC KIDNEY DISEASE - GFR 15 - 59 RENAL FAILURE - GFR <15 Est. GFR calculation based on the MDRD study equation, which assumes a steady state for creatinine. Est. GFR should not be used for medication dosing. 13 A Negative serologic test for Lyme Disease indicates no serologic evidence of infection with B burgdorferi at the time this specimen was collected. A repeat specimen should be collected in 2 to 4 weeks if clinically indicated. 14 RELATIVE RISK CATEGORY AND AVERAGE hs-CRP LEVEL: LOW RISK < 1.0 MG/L AVERAGE RISK 1.0 to 3.0 MG/L HIGH RISK > 3.0 MG/L 15 PER NCEP ATP III GUIDELINES: RESULTS LOWER THAN 40 MG/DL ARE SUGGESTIVE OF INCREASED RISK FOR CORONARY ARTERY DISEASE. RESULTS > OR = TO 60 MG/DL ARE CONSIDERED A NEGATIVE RISK FACTOR. 16 INTERPRETATION OF CHOL-HDL RATIO CHD RISK FEMALE MALE VERY HIGH >8.3 >14.3 HIGH 5.6- 8.3 6.7- 14.3 AVERAGE 3.7- 5.6 4.0- 6.7 BELOW AVERAGE 2.5- 3.7 2.7- 4.0 PROTECTED <2.5 <2.7 17 PER NCEP ATP III GUIDELINES: OPTIMAL < 100 NEAR OPTIMAL 100 - 129 BORDERLINE HIGH 130 - 159 HIGH 160 - 189 VERY HIGH > 189 18 A REVIEW OF THE LITERATURE SUGGESTS THE FOLLOWING RANGES FOR THE CLASSIFICATION OF 25-OH VITAMIN D STATUS: VITAMIN D STATUS 25-OH VITAMIN D DEFICIENCY <20 NG/ML INSUFFICIENCY 20-30 NG/ML SUFFICIENCY 31 - 100 NG/ML TOXICITY > 100 NG/ML A PEDIATRIC REFERENCE RANGE HAS NOT BEEN ESTABLISHED USING THIS METHOD. 19 Performed using Siemens Auberry immunoassay. Care must be taken when interpreting HbA1c results in patients with a hemoglobin variant or decreased erythrocyte lifespan. Values 5.7 - 6.4% suggest prediabetes. Values >=6.5% are diagnostic for diabetes. REFERENCE: DIABETES CARE 2018: 41(S13-S27). Procedures Date Code Description Status 09/27/2018 35354 EKG Completed 09/25/2018 38741 EKG Completed Medical Devices Description No Information Available Encounters Type Date Location Provider Dx Diagnosis Office Visit 03/14/2019 [facility] Syd Chi, E78.2 Mixed hyperlipidemia 9:15a M.D. 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, left eye Office Visit 02/28/2019 9:45a [facility] Syd Chi E78.2 Mixed hyperlipidemia [place] [...] Encounter for immunization Office Visit 02/26/2019 1:30p [facility] Syd Chi E78.2 Mixed hyperlipidemia Addison [...] Encounter for immunization Office Visit 09/27/2018 1:30p [facility] Syd Chi E78.2 Mixed hyperlipidemia Addison [...] electrocardiogram [ECG] [EKG] Office Visit 09/25/2018 1:15p [facility] Syd Chi E78.2 Mixed hyperlipidemia Addison [...] abnormal findings Assessments Date Code Description Provider 03/14/2019 E78.2 Mixed hyperlipidemia Syd Chi M.D. 03/14/2019 J44.9 Chronic obstructive pulmonary disease, Syd Chi M.D. unspecified 03/14/2019 K21.0 Gastro-esophageal reflux disease with Syd Chi M.D. esophagitis 03/14/2019 M15.9 Polyosteoarthritis, unspecified Syd Chi M.D. 03/14/2019 L20.9 Atopic dermatitis, unspecified Syd Chi M.D. 03/14/2019 J30.9 Allergic rhinitis, unspecified Syd Chi M.D. 03/14/2019 R00.1 Bradycardia, unspecified Syd Chi M.D. 03/14/2019 E55.9 Vitamin D deficiency, unspecified Syd Chi M.D. 03/14/2019 C61 Malignant neoplasm of prostate Syd Chi M.D. 03/14/2019 R73.01 Impaired fasting glucose Syd Chi M.D. 03/14/2019 N40.1 Benign prostatic hyperplasia with lower Syd Chi M.D. 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 03/14/2019 M54.5 Low back pain Syd Chi M.D. 03/14/2019 M25.561 Pain in right knee Syd Chi M.D. 03/14/2019 M25.559 Pain in unspecified hip Syd Chi M.D. 03/14/2019 M79.606 Pain in leg, unspecified Syd Chi M.D. 03/14/2019 M25.529 Pain in unspecified elbow Syd Chi M.D. 03/14/2019 K30 Functional dyspepsia Syd Chi M.D. 03/14/2019 R35.1 Nocturia Syd Chi M.D. 03/14/2019 F31.81 Bipolar II disorder Syd Chi M.D. 03/14/2019 F41.9 Anxiety disorder, unspecified Syd Chi M.D. 03/14/2019 G47.00 Insomnia, unspecified Syd Chi M.D. 03/14/2019 H53.30 Unspecified disorder of binocular vision Syd Chi M.D. 03/14/2019 Z96.643 Presence of artificial hip joint, bilateral Syd Chi M.D. 03/14/2019 M79.643 Pain in unspecified hand Syd Chi M.D. 03/14/2019 R06.02 Shortness of breath Syd Chi M.D. 03/14/2019 B02.9 Zoster without complications Syd Chi M.D. 03/14/2019 L82.1 Other seborrheic keratosis Syd Chi M.D. 03/14/2019 R53.83 Other fatigue Syd Chi M.D. 03/14/2019 R94.31 Abnormal electrocardiogram [ECG] [EKG] Syd Chi M.D. 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 02/28/2019 E78.2 Mixed hyperlipidemia Syd Chi M.D. [...] dyspepsia Syd Chi M.D. 09/27/2018 R35.1 Nocturia AlonSyd pelaez M.D. 09/27/2018 F31.81 Bipolar II disorder Syd Chi M.D. 09/27/2018 F41.9 Anxiety disorder, unspecified Syd Chi M.D. 09/27/2018 G47.00 Insomnia, unspecified Syd Chi M.D. 09/27/2018 H53.30 Unspecified disorder of binocular vision Syd hCi M.D. 09/27/2018 Z96.643 Presence of artificial hip [...] examination with abnorma Plan of Treatment Future Appointment(s):09/10/2019 10:00 am - Syd Chi M.D. at [facility]03/14/2019 - Syd Chi M.D.E78.2 Mixed hyperlipidemiaComments:DIET REVIEWED CONTINUE DIETWT LOSSF/U LAB FBWFollow up:6 months.J44.9 Chronic obstructive pulmonary disease, unspecifiedComments:INCREASE PO FLUIDREST NEB OR MDI AND /OR WWHJPYC56.0 Gastro-esophageal reflux disease with esophagitisComments:AVOID CAFFEINE, ETOH AND SPICY FOODSTUMS OR MYLANTA PRN CALL WITH PROBLEMS OR HXGXHSSZD03.9 Polyosteoarthritis, unspecifiedComments: EXERCISE/HEAT/MESSAGETYLENOL OR MOTRIN PRNAVOID HEAVY LIFTINGWT LOSSL20.9 Atopic dermatitis, unspecifiedComments:SKIN CARE INSTRUCTIONS LOTION OR BABY OIL 2-3 APPLICATION PER DAYUSE MOISTURIZING SOAPAVOID PROLONGED WATER EXPOSUREAVOID USING HOT WATER IN ERPGXTX30.9 Allergic rhinitis, unspecifiedComments:INCREASE PO FLUID USE ANTIHISTAMINE PRN SECOND HAND SMOKING DCOMDIEYTL92.1 Bradycardia, unspecifiedComments:STABLE AND MDNLWWYZEZRCT38.9 Vitamin D deficiency, unspecifiedComments:INCREASE EXPOSURE TO SUNREVIEW OF DIETC61 Malignant neoplasm of prostateComments:F/U WITH UROLOGY F/U WITH HKKCWTGED63.01 Impaired fasting glucoseComments:F/U HGAICFS QAC AN HS PRNLOW GLUCOSE DIETN40.1 Benign prostatic hyperplasia with lower urinary tract symptomsComments:F/U WITH UROLOGY USE RX UVBQVPPHYKFHJ78.21 Alcohol dependence, in remissionComments:OBSERVE COUNCELLING AND WZINGWTJDHRB51.5 Low back painComments:EXERCISE/HEAT /MESSAGEAVOID HEAVY LIFTING WT LOSSTYLENOL OR MOTRIN PRNM25.561 Pain in right kneeComments:EXERCISE/HEAT /MESSAGEAVOID HEAVY LIFTING WT LOSSTYLENOL OR MOTRIN PRNM25.559 Pain in unspecified hipComments: EXERCISE/HEAT/MESSAGETYLENOL OR MOTRIN PRNAVOID HEAVY LIFTINGWT LOSSM79.606 Pain in leg, unspecifiedComments:TYLENOL OR MOTRIN PRN EXERCISE/HEAT/ IYTACDRM21.529 Pain in unspecified elbowComments:EXERCISE/HEAT/MESSAGE TYLENOL OR MOTRIN PRNAVOID HEAVY LIFTING SIMONE WRAP PRNELEVATE PRNK30 Functional dyspepsiaComments:AVOID CAFFEINE, ETOH AND SPICY FOODSTUMS OR MYLANTA PRN CALL WITH PROBLEMS OR VOKAXAGJH75.1 NocturiaComments:USE RX GIVEN ZVHOLWQD51.81 Bipolar II disorderComments:COUNCELLING AND REASSURANCE RELAXATION TECHNIQUES DISCUSSED COUNSELED RE: STRESSORS IN LIFEF41.9 Anxiety disorder, unspecifiedComments:COUNCELLING AND REASSURANCE RELAXATION TECHNIQUES DISCUSSEDCOUNSELED RE: STRESSORS IN LIFE AVOID ALLENERGY/HIGH CAFFEINE DRINKS DUR NEYYTLPR27.00 Insomnia, unspecifiedComments:COUNCELLING AND REASSURANCE RELAXATION TECHNIQUES DISCUSSED COUNSELED RE: STRESSORS IN LIFE TYLENOLPM OR MOTRIN PM PRN DUR EJPQEZOS79.30 Unspecified disorder of binocular visionComments:USE GLASSES/CONTACTSF/U WITH PXIYEWZANMNAEI07.643 Presence of artificial hip joint, bilateralComments:F/U WITH YIXFVY82.643 Pain in unspecified handComments:EXERCISE/HEAT/MESSAGETYLENOL OR MOTRIN PRNAVOID HEAVY LIFTINGWT LOSS DUR UIDNZNZR11.02 Shortness of breathComments:INCREASE PO FLUIDRESTNEB OR MDI AND /OR LFYFDOU81.9 Zoster without complicationsComments: SKIN CARETRANSMITION NFTROGNIVIW21.1 Other seborrheic keratosisComments:LESION EXCICES WOUND CARER53.83 Other fatigueComments:BYEWHQNUL54.31 Abnormal electrocardiogram [ECG] [EKG]Comments:? A FLUTER CHANGES ON LAST EKG , XQZMIPKUE68.132 Sympathetic uveitis, left eyeComments:[place],LAB BY RHEUMATOLOGY / OPHTHALMOLOGY Functional Status Functional Condition Comment Date Status Glasses Active Bifocal glasses Active Mental Status Description No Information Available Referrals Description No Information Available
[2019-03-18 12:05] LABS: ALT 17 U/L (7-52); AST 16 U/L (13-39); Albumin/Globulin Ratio 1.4 (1-3); Alkaline Phosphatase 67 U/L (34-104); Anion Gap 8 mmol/L (2-11); BUN/Creatinine Ratio 7.6 (8-20); Blood Urea Nitrogen 11 mg/dL (6-24); C Reactive Protein < 1.00 mg/L (<8.01); CO2 Carbon Dioxide 22 mmol/L (22-32); Calcium 9.1 mg/dL (8.6-10.3); Chloride 94 mmol/L (101-111); EGFR African American 57.9 (>60); EGFR Non-African American 47.8 (>60); Globulin 2.8 g/dL (2-4); Glucose 136 mg/dL (70-100); Potassium 4.5 mmol/L (3.5-5.0); Sodium 124 mmol/L (135-145); Total Protein 6.8 g/dL (6.4-8.9)
[2019-03-18] MEDS ORDERED: Iodixanol* (CONTRAST) 320 MG/ML 100 ML SDV IV ONE (12:33)
[2019-03-18 16:09] LABS: Body Fluid Source Cerebral Spinal
[2019-03-18 16:51] LABS: CSF Glucose 67 mg/dL (40-70)
[2019-03-18 17:44] LABS: Body Fluid Band 6 %; Body Fluid Other Cells 2
[2019-03-18 18:16] VITALS: BP 129/79
[2019-03-20 18:00] LABS: HSV 1 PCR, CSF Negative (Negative); HSV 2 PCR, CSF Negative (Negative)
[2019-03-21 19:00] LABS: JC Virus PCR Result Negative (Negative)
[2019-03-23 00:04] LABS: CSF West Nile Virus RNA (PCR) Negative (Negative); West Nile Virus Source CSF
== END 2019-03-18 18:07 | disposition home or self-care (01) ==
LOC: ED 10:45
DX: G44.209 Tension-type headache, unspecified, not intractable (principal); E78.00 Pure hypercholesterolemia, unspecified; J44.9 Chronic obstructive pulmonary disease, unspecified; K21.9 Gastro-esophageal reflux disease without esophagitis; F41.9 Anxiety disorder, unspecified; F32.9 Major depressive disorder, single episode, unspecified; Z85.46 Personal history of malignant neoplasm of prostate; Z96.642 Presence of left artificial hip joint; Z87.891 Personal history of nicotine dependence; Z79.899 Other long term (current) drug therapy; Z88.5 Allergy status to narcotic agent
CPT/HCPCS: 36415; 62270; 70470; 80053; 82945; 83605; 84157; 84484; 85025; 85610; 86140; 86618; 87070; 87205; 87529; 87798; 87899; 89051; 93005; 99282; Q9967

== ENCOUNTER 2019-03-19 14:37 | Emergency (ER) | payer MEDICARE, BC ==
--- OUTSIDE RECORDS SUMMARY | 2019-03-19 15:39 | XMS REPORT | Continuity of Care Document ---
:1945 External Reference #:[id number] Author Name Syd Chi M.D. 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 Tablets M25.561 M54.5 Nexium 1 by mouth every 90caps K21.0 Alon, armando Rivas, 04/20/[address] day M.D. Vitamin D3 1 by mouth every 90tabs E55.9 [facility], 09/18/2015 5000Unit day M.D. Tablets Advair Diskus Inhale One puff By 180units J44.9 [facility], 2015 Mouth Twice A Day M.D. [...] Ipratropium use nebulizer every 4 180ml J44.9 [facility], [place]/Albuterol hours as needed for M.D. Sulfate shortness of breath 0.5-2.5(3)mg/3ML Solution Clonazepam 1 tab by mouth twice 60tabs F41.9 AlonSyd pedersen, 0.5mg Tablets a day as needed M.DMichelle G47.00 F31.81 Olanzapine Take One Tablet By 90tabs F31.81 Syd Chi, 10mg Tablets Mouth Every Day M.D. F41.9 F33.9 Medications Administered in Office Medication SIG Qnty Indications Ordering Provider Date Admin Of Pneumovax Syd Chi M.D. 02/28/2019 Injection Immunizations CPT Code Status Date Vaccine Reaction Lot # [id number] Given 02/28/2019 Pneumococcal Conjugate [id number] Vaccine 13 Valent For Intramuscular Use 30222 Given 02/26/2019 Flu Virus Vaccine, [id number] Quadrivalent, Slit Virus, Im Use [id number] Given 02/24/2016 Flu Vaccine 3+Yrs [id number] Old(Fluzone) 23916 Ordered 03/13/[address] CRARERA GAVE PNEUMO 23 IN 02/2014 Vital Signs Date Vital Result Comment 03/19/2019 1:31pm BP Systolic 134 mmHg BP Diastolic 80 mmHg Height 70 inches 5'10" Weight 225.00 lb BMI (Body Mass Index) 32.3 kg/m2 Heart Rate 65 /min Respiratory Rate 16 /min 03/14/2019 9:33am BP Systolic 122 mmHg BP Diastolic 59 mmHg Height 70 inches 5'10" Weight 225.00 lb BMI (Body Mass Index) 32.3 kg/m2 Heart Rate 71 /min Respiratory Rate 16 /min Results Test Acquired Date Facility Test Result H/L Range Note Laboratory test 03/18/2019 [facility] CSF Total 49 mg/dL High 15-45 1 finding Protein CSF Glucose 67 mg/dL Normal 40-70 2 CSF Culture & 03/18/2019 [facility] CSF Culture SEE RESULT BELOW 3 Sensitivity Gram Stain CSF Cell Count 03/18/2019 [facility] Body Fluid Cerebral Spinal Source Body Fluid Appearance Clear Body Fluid Color Colorless CSF Tube # 3 Body Fluid Volume 2.5 mL Body Fluid WBC 0 /mcL Body Fluid RBC 67 /mcL Body Fluid Neutrophils 72 % Body Fluid Band 6 % Body Fluid Lymph 22 % Body Fluid Other Cells 2 Body Fluid Total Cells Counted 18 Body Fluid Comment (SEE NOTE) 4 Fluid Reviewed By MD (SEE NOTE) 5 CBC Auto Diff 03/18/2019 [facility] White Blood 3.7 10^3/uL Normal 3.5-10.8 Count Red Blood Count 4.06 10^6/uL Low 4.18-5.48 Hemoglobin 13.2 g/dL Low 14.0-18.0 Hematocrit 39 % Low 42-52 Mean Corpuscular Volume 95 fL High 80-94 Mean Corpuscular Hemoglobin 33 pg High 27-31 Mean Corpuscular HGB Conc 34 g/dL Normal 31-36 Red Cell Distribution Width 13 % Normal 10-15 Platelet Count 313 10^3/uL Normal 150-450 Mean Platelet Volume 8.1 fL Normal 7.4-10.4 Abs Neutrophils 2.5 10^3/uL Normal 1.5-7.7 Abs Lymphocytes 0.9 10^3/uL Low 1.0-4.8 Abs Monocytes 0.3 10^3/uL Normal 0-0.8 Abs Eosinophils 0.0 10^3/uL Normal 0-0.6 Abs Basophils 0.0 10^3/uL Normal 0-0.2 Abs Nucleated RBC 0.0 10^3/uL Granulocyte % 66.6 % Lymphocyte % 24.1 % Monocyte % 8.5 % Eosinophil % 0.4 % Basophil % 0.4 % Nucleated Red Blood Cells % 0.1 Comp Metabolic Panel 03/18/2019 [facility] Sodium 124 mmol/L Low 135- 145 Potassium 4.5 mmol/L Normal 3.5-5.0 Chloride 94 mmol/L Low 101-111 Co2 Carbon Dioxide 22 mmol/L Normal 22-32 Anion Gap 8 mmol/L Normal 2-11 Glucose 136 mg/dL High 70-100 Blood Urea Nitrogen 11 mg/dL Normal 6-24 Creatinine 1.45 mg/dL High 0.67-1.17 BUN/Creatinine Ratio 7.6 Low 8-20 Calcium 9.1 mg/dL Normal 8.6-10.3 Total Protein 6.8 g/dL Normal 6.4-8.9 Albumin 4.0 g/dL Normal 3.2-5.2 Globulin 2.8 g/dL Normal 2-4 Albumin/Globulin Ratio 1.4 Normal 1-3 Total Bilirubin 0.50 mg/dL Normal 0.2-1.0 Alkaline Phosphatase 67 U/L Normal 34-104 Alt 17 U/L Normal 7-52 Ast 16 U/L Normal 13-39 Egfr Non- 47.8 >60 Egfr 57.9 >60 6 Laboratory test 03/18/2019 [facility] C Reactive < 1.00 mg/L Normal < 8.01 finding Protein Troponin-I (TnI) 0.00 ng/mL <0.04 7 Lactic Acid 2.0 mmol/L Normal 0.5-2.0 8 Inr/Protime 03/18/2019 [facility] Inr 1.05 Normal 0.82-1.09 9 CBC Auto Diff 03/06/2019 [facility] White Blood 4.1 10^3/uL Normal 3.5-10.8 Count Red Blood Count 4.04 10^6/uL Low [...] Red Blood Cells % 0.1 Inr/Protime 03/06/2019 [facility] Inr 1.03 Normal 0.82-1.09 10 Laboratory test 03/06/2019 [facility] Lactic Acid 1.3 mmol/L Normal 0.5-2.0 11 finding Comp Metabolic 03/06/2019 [facility] Sodium 136 mmol/L Normal 135- 145 [...] Egfr Non- 50.2 >60 Egfr 60.8 >60 12 Laboratory test 03/06/2019 [facility] Troponin-I (TnI) 0.00 ng/mL < 0.04 13 finding Urinalysis Profile 03/06/2019 [facility] Urine Color Straw Urine Appearance Clear Urine Specific [place] 1.011 Normal 1.010-1.030 Urine pH 7.0 Normal 5-9 Urine Urobilinogen Negative Negative Urine Ketones Negative Negative Urine Protein Negative Negative Urine Leukocytes Negative Negative Urine Blood Negative Negative Urine Nitrite Negative Negative Urine Bilirubin Negative Negative Urine Glucose Negative Negative Hemoglobin A1c 02/28/2019 [facility] Hemoglobin A1c @ 5.7 % (4.0-6.0) 14 [address] (606)- - Est Average Glucose 117 mg/dL PSA Free And Total 02/28/2019 [facility] PSA Total <0.1 ng/mL (0.0-4.0 ) [address] (207)- - PSA Free <0.1 ng/mL PSA % Free NOT CALCULATED % 15 Laboratory 02/28/2019 [facility] TSH,Ultrasensitive @ 2.720 (0.360- 4.170) test finding [address] mIU/L (341)- - 25 Hydroxy Vit D @ 25 ng/mL Low (31-100) 16 Lipid 02/28/2019 [facility] Cholesterol @ 270 mg/dL High (0-200) [address] (292)- - Triglyceride @ 190 mg/dL (30-200) HDL Cholesterol @ 46 mg/dL (>40) 17 Chol/HDL Ratio 5.9 RATIO 18 LDL Chol (Calc) 186 mg/dL High (<130) 19 CMP 02/28/2019 [facility] Sodium 141 mmol/L (136-145) Marilynn CARRILLO (607)- - Potassium 4.7 mmol/L (3.6-5.2) Chloride [...] >60 ml/min/1.73m2 (>59) GFR Interpretation <SEE NOTE> 20 CBC With Diff 02/28/2019 [facility] WBC 4.4 10*3/uL (4.1-11.0) [address] (607)- - RBC 4.19 10*6/uL Low (4.60-6.10) HGB 13.4 g/dL Low (13.5-18.0) HCT 39.7 % Low (41.0-53.0) MCV 94.8 fL (80.0-95.0) MCH 31.9 pg (27.0-32.0) MCHC 33.6 g/dL (32.0-36.0) RDW 13.2 % (10.5-14.5) PLT 290 10*3/uL (150-450) MPV 9.1 fL (7.1-10.7) Neut % 61.2 % (35.0-75.0) Lymph % 26.8 % (16.0-52.0) [place] % 9.6 % High (0.0-8.0) Eos % 1.8 % (0.0-5.0) Baso % 0.6 % (0.0-4.0) Neut # 2.7 10*3/uL (1.8-7.7) Lymph # 1.2 10*3/uL (1.2-4.8) [place] # 0.4 10*3/uL (0.0-0.8) Eos # 0.1 10*3/uL (0.0-0.5) Baso # 0.0 10*3/uL (0.0-0.2) CBC With Diff 09/25/2018 [facility] [place] WBC 4.0 10*3/uL Low (4.1-11.0) [address] (607)- - RBC 4.04 10*6/uL Low (4.60-6.10) HGB 12.7 g/dL Low (13.5-18.0) HCT 38.1 % Low (41.0-53.0) MCV 94.4 fL (80.0-95.0) MCH 31.6 pg (27.0-32.0) MCHC 33.4 g/dL (32.0-36.0) RDW 13.5 % (10.5-14.5) PLT 307 10*3/uL (150-450) MPV 9.0 fL (7.1-10.7) Neut % 58.4 % (35.0-75.0) Lymph % 27.2 % (16.0-52.0) [place] % 12.6 % High (0.0-8.0) Eos % 1.3 % (0.0-5.0) Baso % 0.5 % (0.0-4.0) Neut # 2.3 10*3/uL (1.8-7.7) Lymph # 1.1 10*3/uL Low (1.2-4.8) [place] # 0.5 10*3/uL (0.0-0.8) Eos # 0.1 10*3/uL (0.0-0.5) Baso # 0.0 10*3/uL (0.0-0.2) CMP 09/25/2018 [facility] Sodium 137 mmol/L (136-145) [address] [place] [...] >60 ml/min/1.73m2 (>59) GFR Interpretation <SEE NOTE> 21 Laboratory 09/25/2018 [facility] TSH,Ultrasensitive @ 2.390 (0.360- 4.170) test finding [address] mIU/L (607)- - Free Thyroxine @ 0.97 ng/dL (0.76-1.46) Esr 13 mm/h (0-20) Lyme Disease 09/25/2018 [facility] Lyme Igm/Igg AB @ NEGATIVE (Neg) 22 Antibodies [address] Igg/Igm (607)- - Laboratory test 09/25/2018 [facility] CRP, Sensitive @ 0.6 mg/L 23 finding [address] (607)- - Lipid Extended 09/25/2018 [facility] Appearance CLEAR (Clear) Panel [address] (607)- - Cholesterol @ 253 mg/dL High (0-200) Triglyceride @ 330 mg/dL High (30-200) HDL Cholesterol @ 37 mg/dL Low (>40) 24 Chol/HDL Ratio 6.8 RATIO 25 Direct LDL @ 154 mg/dL High (<130) 26 VLDL (Calc) 62 mg/dL High (0-30) Laboratory test 09/25/2018 [facility] 25 Hydroxy Vit D 19 ng/mL Low (31 -100) 27 finding [address] @ (607)- - Hemoglobin A1c 09/25/2018 [facility] Hemoglobin A1c @ 5.7 % (4.0-6.0) 28 [address] (607)- - Est Average Glucose 117 mg/dL 1 Comment: Tube # 2 2 Comment: Tube # 2 3 SEE RESULT BELOW Name: DAVID ORTIZ : [address]: Neftali Littlejohn MD Acct: [id number] Unit: [id number] AGE: 73 Location: ED Re03/18/19 SEX: M Status: DEP ER SPEC: [id number] ZIYAD: 03/18/19-[address]: Neftali Littlejohn MD REQ: [id number] RECD: 03/18/19 STATUS: RES CATARINAHR DR: Syd Chi MD _ SOURCE: CSF SPDESC: ORDERED: CSF Cult/GS COMMENTS: Comment: Tube # 3 Procedure Result Reported Site CSF Gram Stain Final 03/19/19- 0725 ML No Neutrophils Observed 1+ Nucleated Cells No Organisms Seen Preparation By Cytospin Smear CSF Culture Preliminary 03/19/19- 1131 ML No Growth Day 1 * ML - Main Lab . END OF REPORT DEPARTMENT OF PATHOLOGY, [address] [place] [address] Oswaldo Aguillon M.D. Director [facility] # [id number] 4 Differential performed on concentrated smear. 5 Blood is present. No evidence of an acute inflammatory process. No evidence of malignancy. Reviewed by Christen Dejesus MD 6 Because ethnic data is not always readily [...] 15-29 5 Kidney failure <15 (or dialysis) 7 Troponin-I testing on Plasma Separator Tubes (PST) has a known false positive rate of 0.20-0.40%. All positive troponins reflex immediately to secondary confirmatory testing. Using the [employer] DxI 800 Access Immunoassay systems, the 99th percentile upper reference limit was demonstrated to be < 0.03 ng/mL. 8 [facility] Severe Sepsis and Septic Shock Management Bundle Measure requires all lactic acids initially measuring >2.0 mmol/L be repeated. 9 Standard intensity warfarin therapeutic range: 2.0-3.0 High intensity warfarin therapeutic range: 2.5-3.5 10 Standard intensity warfarin therapeutic range: 2.0-3.0 High intensity warfarin therapeutic range: 2.5-3.5 11 [facility] Severe Sepsis and Septic Shock Management Bundle Measure requires all lactic acids initially measuring >2.0 mmol/L be repeated. 12 Because ethnic data is not always readily [...] 15-29 5 Kidney failure <15 (or dialysis) 13 Troponin-I testing on Plasma Separator Tubes (PST) has a known false positive rate of 0.20-0.40%. All positive troponins reflex immediately to secondary confirmatory testing. Using the [employer] DxI 800 Access Immunoassay systems, the 99th percentile upper reference limit was demonstrated to be < 0.03 ng/mL. 14 Performed using Siemens EverConnect immunoassay. Care must be taken when interpreting HbA1c results in patients with a hemoglobin variant or decreased erythrocyte lifespan. Values 5.7 - 6.4% suggest prediabetes. Values >=6.5% are diagnostic for diabetes. REFERENCE: DIABETES CARE 2018: 41(S13-S27). 15 % FREE PSA PROBABILITY OF CANCER 0 [...] DIAGNOSIS OF CANCER. (See: TONNY 1998; 279: 4619-1660) METHOD USED TO ASSAY BOTH FREE PSA AND TOTAL PSA IS SIEMENS Anita MargaritaTA LOCI CHEMILUMINESCENT IMMUNOASSAY (CALIBRATION TRACEABLE TO WHO 1998, 96/668). RESULTS SHOULD NOT BE INTERPRETED ABSOLUTE EVIDENCE FOR THE PRESENCE OR ABSENCE OF MALIGNANT DISEASE. VALUES OBTAINED WITH DIFFERENT ASSAY METHODS OR KITS CANNOT BE USED INTERCHANGEABLY. 16 A REVIEW OF THE LITERATURE SUGGESTS THE FOLLOWING RANGES FOR THE CLASSIFICATION OF 25-OH VITAMIN D STATUS: VITAMIN D STATUS 25-OH VITAMIN D DEFICIENCY <20 NG/ML INSUFFICIENCY 20-30 NG/ML SUFFICIENCY 31 - 100 NG/ML TOXICITY > 100 NG/ML A PEDIATRIC REFERENCE RANGE HAS NOT BEEN ESTABLISHED USING THIS METHOD. 17 PER NCEP ATP III GUIDELINES: RESULTS LOWER THAN 40 MG/DL ARE SUGGESTIVE OF INCREASED RISK FOR CORONARY ARTERY DISEASE. RESULTS > OR = TO 60 MG/DL ARE CONSIDERED A NEGATIVE RISK FACTOR. 18 INTERPRETATION OF CHOL-HDL RATIO CHD RISK FEMALE MALE VERY HIGH >8.3 >14.3 HIGH 5.6- 8.3 6.7- 14.3 AVERAGE 3.7- 5.6 4.0- 6.7 BELOW AVERAGE 2.5- 3.7 2.7- 4.0 PROTECTED <2.5 <2.7 19 PER NCEP ATP III GUIDELINES: OPTIMAL < 100 NEAR OPTIMAL 100 - 129 BORDERLINE HIGH 130 - 159 HIGH 160 - 189 VERY HIGH > 189 20 NORMAL KIDNEY FUNCTION OR MILD DISEASE - GFR >OR= 60 CHRONIC KIDNEY DISEASE - GFR 15 - 59 RENAL FAILURE - GFR <15 Est. GFR calculation based on the MDRD study equation, which assumes a steady state for creatinine. Est. GFR should not be used for medication dosing. 21 NORMAL KIDNEY FUNCTION OR MILD DISEASE - GFR >OR= 60 CHRONIC KIDNEY DISEASE - GFR 15 - 59 RENAL FAILURE - GFR <15 Est. GFR calculation based on the MDRD study equation, which assumes a steady state for creatinine. Est. GFR should not be used for medication dosing. 22 A Negative serologic test for Lyme Disease indicates no serologic evidence of infection with B burgdorferi at the time this specimen was collected. A repeat specimen should be collected in 2 to 4 weeks if clinically indicated. 23 RELATIVE RISK CATEGORY AND AVERAGE hs-CRP LEVEL: LOW RISK < 1.0 MG/L AVERAGE RISK 1.0 to 3.0 MG/L HIGH RISK > 3.0 MG/L 24 PER NCEP ATP III GUIDELINES: RESULTS LOWER THAN 40 MG/DL ARE SUGGESTIVE OF INCREASED RISK FOR CORONARY ARTERY DISEASE. RESULTS > OR = TO 60 MG/DL ARE CONSIDERED A NEGATIVE RISK FACTOR. 25 INTERPRETATION OF CHOL-HDL RATIO CHD RISK FEMALE MALE VERY HIGH >8.3 >14.3 HIGH 5.6- 8.3 6.7- 14.3 AVERAGE 3.7- 5.6 4.0- 6.7 BELOW AVERAGE 2.5- 3.7 2.7- 4.0 PROTECTED <2.5 <2.7 26 PER NCEP ATP III GUIDELINES: OPTIMAL < 100 NEAR OPTIMAL 100 - 129 BORDERLINE HIGH 130 - 159 HIGH 160 - 189 VERY HIGH > 189 27 A REVIEW OF THE LITERATURE SUGGESTS THE FOLLOWING RANGES FOR THE CLASSIFICATION OF 25-OH VITAMIN D STATUS: VITAMIN D STATUS 25-OH VITAMIN D DEFICIENCY <20 NG/ML INSUFFICIENCY 20-30 NG/ML SUFFICIENCY 31 - 100 NG/ML TOXICITY > 100 NG/ML A PEDIATRIC REFERENCE RANGE HAS NOT BEEN ESTABLISHED USING THIS METHOD. 28 Performed using to-BBB immunoassay. Care must be taken when interpreting HbA1c results in patients with a hemoglobin variant or decreased erythrocyte lifespan. Values 5.7 - 6.4% suggest prediabetes. Values >=6.5% are diagnostic for diabetes. REFERENCE: DIABETES CARE 2018: 41(S13-S27). 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, left eye R11.2 Nausea with vomiting, unspecified E86.0 Dehydration R51 Headache Office Visit 03/14/2019 9:15a [facility] Syd Chi E78.2 Mixed hyperlipidemia [...] uveitis, left eye Office Visit 02/28/2019 9:45a [facility] Syd Chi E78.2 Mixed hyperlipidemia Addison [...] Encounter for immunization Office Visit 02/26/2019 1:30p [facility] Syd Chi E78.2 Mixed hyperlipidemia Addison [...] Encounter for immunization Office Visit 09/27/2018 1:30p [facility] Syd Chi E78.2 Mixed hyperlipidemia Addison [...] electrocardiogram [ECG] [EKG] Office Visit 09/25/2018 1:15p [facility] Syd Chi E78.2 Mixed hyperlipidemia Addison [...] abnormal findings Assessments Date Code Description Provider 03/19/2019 E78.2 Mixed hyperlipidemia Syd Chi M.D. 03/19/2019 J44.9 Chronic obstructive pulmonary disease, Syd Chi M.D. unspecified 03/19/2019 K21.0 Gastro-esophageal reflux disease with Syd Chi M.D. esophagitis 03/19/2019 M15.9 Polyosteoarthritis, unspecified Syd Chi M.D. 03/19/2019 L20.9 Atopic dermatitis, unspecified Syd Chi M.D. 03/19/2019 J30.9 Allergic rhinitis, unspecified Syd Chi M.D. 03/19/2019 R00.1 Bradycardia, unspecified Syd Chi M.D. 03/19/2019 E55.9 Vitamin D deficiency, unspecified Syd Chi M.D. 03/19/2019 C61 Malignant neoplasm of prostate Syd Chi M.D. 03/19/2019 R73.01 Impaired fasting glucose Syd Chi M.D. 03/19/2019 N40.1 Benign prostatic hyperplasia with lower Syd Chi M.D. 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 03/19/2019 M54.5 Low back pain Syd Chi M.D. 03/19/2019 M25.561 Pain in right knee Syd Chi M.D. 03/19/2019 M25.559 Pain in unspecified hip Syd Chi M.D. 03/19/2019 M79.606 Pain in leg, unspecified Syd Chi M.D. 03/19/2019 M25.529 Pain in unspecified elbow Syd Chi M.D. 03/19/2019 K30 Functional dyspepsia Syd Chi M.D. 03/19/2019 R35.1 Nocturia Syd Chi M.D. 03/19/2019 F31.81 Bipolar II disorder Syd Chi M.D. 03/19/2019 F41.9 Anxiety disorder, unspecified Syd Chi M.D. 03/19/2019 G47.00 Insomnia, unspecified Syd Chi M.D. 03/19/2019 H53.30 Unspecified disorder of binocular vision Syd Chi M.D. 03/19/2019 Z96.643 Presence of artificial hip joint, bilateral Syd Chi M.D. 03/19/2019 M79.643 Pain in unspecified hand Syd Chi M.D. 03/19/2019 R06.02 Shortness of breath Syd Chi M.D. 03/19/2019 B02.9 Zoster without complications Syd Chi M.D. 03/19/2019 L82.1 Other seborrheic keratosis Syd Chi M.D. 03/19/2019 R53.83 Other fatigue Syd Chi M.D. 03/19/2019 R94.31 Abnormal electrocardiogram [ECG] [EKG] Syd Chi M.D. 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 03/19/2019 R11.2 Nausea with vomiting, unspecified Syd Chi M.D. 03/19/2019 E86.0 Dehydration Syd Chi M.D. 03/19/2019 R51 Headache Syd Chi M.D. 03/14/2019 E78.2 Mixed hyperlipidemia Syd Chi M.D. [...] 02/26/2019 F10.21 Alcohol dependence, in remission Syd Cih M.D. 02/26/2019 M54.5 Low back pain Syd Chi M.D. 02/26/2019 M25.561 Pain in right knee AlonSyd pelaez M.D. 02/26/2019 M25.559 Pain in unspecified hip [...] 09/25/2018 N40.1 Benign prostatic hyperplasia with lower Sdy Chi M.D. urinary tract sympto 09/25/2018 F10.21 [...] 10:00 am - Syd Chi M.D. at [facility]03/19/2019 - Syd Chi M.D.E78.2 Mixed hyperlipidemiaComments:DIET REVIEWED CONTINUE DIETWT LOSSF/U LAB FBWFollow up:6 months.J44.9 Chronic obstructive pulmonary disease, unspecifiedComments:INCREASE PO FLUIDREST NEB OR MDI AND /OR HYHRDTF31.0 Gastro-esophageal reflux disease with esophagitisComments:AVOID CAFFEINE, ETOH AND SPICY FOODSTUMS OR MYLANTA PRN CALL WITH PROBLEMS OR QWUOCJVQM62.9 Polyosteoarthritis, unspecifiedComments: EXERCISE/HEAT/MESSAGETYLENOL OR MOTRIN PRNAVOID HEAVY LIFTINGWT LOSSL20.9 Atopic dermatitis, unspecifiedComments:SKIN CARE INSTRUCTIONS LOTION OR BABY OIL 2-3 APPLICATION PER DAYUSE MOISTURIZING SOAPAVOID PROLONGED WATER EXPOSUREAVOID USING HOT WATER IN DOMDAPH90.9 Allergic rhinitis, unspecifiedComments:INCREASE PO FLUID USE ANTIHISTAMINE PRN SECOND HAND SMOKING ZIDICFCZVG38.1 Bradycardia, unspecifiedComments:STABLE AND ZANBBJCWFANLS08.9 Vitamin D deficiency, unspecifiedComments:INCREASE EXPOSURE TO SUNREVIEW OF DIETC61 Malignant neoplasm of prostateComments:F/U WITH UROLOGY F/U WITH NCWBAEBJQ24.01 Impaired fasting glucoseComments:F/U HGAICFS QAC AN HS PRNLOW GLUCOSE DIETN40.1 Benign prostatic hyperplasia with lower urinary tract symptomsComments:F/U WITH UROLOGY USE RX NCORILLDQFKSM18.21 Alcohol dependence, in remissionComments:OBSERVE COUNCELLING AND XTJNGZHHLSRM66.5 Low back painComments:EXERCISE/HEAT /MESSAGEAVOID HEAVY LIFTING WT LOSSTYLENOL OR MOTRIN PRNM25.561 Pain in right kneeComments:EXERCISE/HEAT /MESSAGEAVOID HEAVY LIFTING WT LOSSTYLENOL OR MOTRIN PRNM25.559 Pain in unspecified hipComments: EXERCISE/HEAT/MESSAGETYLENOL OR MOTRIN PRNAVOID HEAVY LIFTINGWT LOSSM79.606 Pain in leg, unspecifiedComments:TYLENOL OR MOTRIN PRN EXERCISE/HEAT/ FIKUEUKV07.529 Pain in unspecified elbowComments:EXERCISE/HEAT/MESSAGE TYLENOL OR MOTRIN PRNAVOID HEAVY LIFTING SIMONE WRAP PRNELEVATE PRNK30 Functional dyspepsiaComments:AVOID CAFFEINE, ETOH AND SPICY FOODSTUMS OR MYLANTA PRN CALL WITH PROBLEMS OR UYCVOSHZS45.1 NocturiaComments:USE RX GIVEN OBDFTUIU22.81 Bipolar II disorderComments:COUNCELLING AND REASSURANCE RELAXATION TECHNIQUES DISCUSSED COUNSELED RE: STRESSORS IN LIFEF41.9 Anxiety disorder, unspecifiedComments:COUNCELLING AND REASSURANCE RELAXATION TECHNIQUES DISCUSSEDCOUNSELED RE: STRESSORS IN LIFE AVOID ALLENERGY/HIGH CAFFEINE DRINKS DUR LLFKMMHW60.00 Insomnia, unspecifiedComments:COUNCELLING AND REASSURANCE RELAXATION TECHNIQUES DISCUSSED COUNSELED RE: STRESSORS IN LIFE TYLENOLPM OR MOTRIN PM PRN DUR BYWUYMGQ73.30 Unspecified disorder of binocular visionComments:USE GLASSES/CONTACTSF/U WITH WFVZESDXIRBBPP24.643 Presence of artificial hip joint, bilateralComments:F/U WITH DMABBS18.643 Pain in unspecified handComments:EXERCISE/HEAT/MESSAGETYLENOL OR MOTRIN PRNAVOID HEAVY LIFTINGWT LOSS DUR LMIUAYTA55.02 Shortness of breathComments:INCREASE PO FLUIDRESTNEB OR MDI AND /OR WZMGCYQ94.9 Zoster without complicationsComments: SKIN CARETRANSMITION PDIBAMPHLHT52.1 Other seborrheic keratosisComments:LESION EXCICES WOUND CARER53.83 Other fatigueComments:LWXABLJVO43.31 Abnormal electrocardiogram [ECG] [EKG]Comments:? A FLUTER CHANGES ON LAST EKG , KJCLWISPB83.132 Sympathetic uveitis, left eyeComments:[place],LAB BY RHEUMATOLOGY / BFBZSNWVJPBNPF91.2 Nausea with vomiting, mhksqqgcooxX26.0 DehydrationComments: PT SENT TO [facility] FOR FURTHER EVALUATION AND DEHYDRATION TXRELAYED INFORMATION TO [facility] [id number] Headache Functional Status Functional Condition Comment Date Status Glasses Active Bifocal glasses Active Mental Status Description No Information Available Referrals Description No Information Available
[2019-03-19] MEDS ORDERED: NS 0.9% 1000 ML** 1,000 ML IV ONE (18:03)
--- NOTE | 2019-03-19 18:22 | ED ---
GI/ HPI - HPI Summary HPI Summary: Pt is a 73 y/o M presenting to the ED with a chief complaint of GI issues. He states he was here yesterday for dizziness and they did multiple tests, including an LP. He woke up in the middle of the night with one episode of diarrhea. Around 1100 this date, he went to his PCP, who sent him here. He reports nausea, vomiting, diarrhea, weakness, chills, dysuria, and discolored urine. He denies myalgia, blood in stool, hematemesis, or fever. - History of Current Complaint Chief Complaint: EDNauseaVomitDiarrh Time Seen by Provider: 03/19/19 17:55 Stated Complaint: VOMITING PER PT Hx Obtained From: Patient Onset/Duration: Started Hours Ago, Still Present Timing: Constant, Lasting Hours Severity: Moderate Current Severity: Severe Pain Intensity: 10 Location of Pain: Diffuse Associated Signs and Symptoms: Positive: Weakness, Nausea, Vomiting, Diarrhea, Dysuria, Chills, Other: - discolored urine. Negative: Hematemesis, Blood w/ Stool, Fever Aggravating Factor(s): Nothing Alleviating Factor(s): Nothing - Allergy/Home Medications Allergies/Adverse Reactions: Allergies Allergy/AdvReac Type Severity Reaction Status Date / Time fentanyl Allergy Agitation Verified 03/06/19 17:25 morphine Allergy Agitation Verified 03/06/19 17:25 PMH/Surg Hx/FS Hx/Imm Hx Previously Healthy: Yes Endocrine/Hematology History: Denies: Hx Diabetes Cardiovascular History: Reports: Hx Hypercholesterolemia Denies: Hx Hypertension Respiratory History: Reports: Hx Asthma, Hx Chronic Obstructive Pulmonary Disease (COPD) GI History: Reports: Hx Gastroesophageal Reflux Disease - ON MEDICATION History: Denies: Hx Renal Disease Musculoskeletal History: Reports: Hx Arthritis - LOWER BACK Sensory History: Reports: Hx Contacts or Glasses - GLASSES Denies: Hx Hearing Aid Opthamlomology History: Reports: Hx Contacts or Glasses - GLASSES Psychiatric History: Reports: Hx Anxiety - ON MEDICATION, Hx Depression - ON MEDICATION - Cancer History Cancer Type, Location and Year: prostrate cancer dx 01/2016. DOing well with treatment started 5 weeks ago - Surgical History Surgery Procedure, Year, and Place: [place] [facility] [place] [facility] 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 Negative: Fever Positive: Vomiting, Diarrhea, Nausea Positive: dysuria, other - discolored urine Positive: Weakness All Other Systems Reviewed And Are Negative: Yes Physical Exam - Summary Physical Exam Summary: Constitutional: Well-developed, Well-nourished, Alert. (-) Distressed Skin: Warm, Dry. Ecchymosis to L upper abd. HENT: Normocephalic; Atraumatic Eyes: Conjunctiva normal Neck: Musculoskeletal ROM normal neck. (-) JVD, (-) Stridor, (-) Tracheal deviation Cardio: Rhythm regular, rate normal, Heart sounds normal; Intact distal pulses; Radial pulses are 2+ and symmetric. (-) Murmur Pulmonary/Chest wall: Effort normal. (-) Respiratory distress, (-) Wheezes, (-) Rales Abd: Soft, mild RUQ tenderness, (-) Distension, (-) Guarding, (-) Rebound Musculoskeletal: (-) Edema Lymph: (-) Cervical adenopathy Neuro: Alert, Oriented x3 Psych: Mood and affect Normal Triage Information Reviewed: Yes Vital Signs On Initial Exam: Initial Vitals Temp Pulse Resp BP Pulse Ox 97.8 F 63 17 137/84 98 03/19/19 15:19 03/19/19 15:19 03/19/19 15:19 03/19/19 15:19 03/19/19 15:19 Vital Signs Reviewed: Yes Procedures - Sedation Patient Received Moderate/Deep Sedation with Procedure: No Diagnostics - Vital Signs Vital Signs Temp Pulse Resp BP Pulse Ox 03/19/19 17:54 72 147/71 98 03/19/19 16:43 97 F 57 16 124/71 96 03/19/19 15:19 97.8 F 63 17 137/84 98 - Laboratory Result Diagrams: 03/19/19 18:13 03/19/19 18:13 Lab Statement: Any lab studies that have been ordered have been reviewed, and results considered in the medical decision making process. - Ultrasound Gallbladder US Ultrasound Interpretation Completed By: Radiologist Summary of Ultrasound Findings: 1. No shadowing gallstones identified. Mild gallbladder wall thickening but negative sonographic Chahal sign. Limited visualization of gallbladder. 2. Pancreas obscured by bowel gas. 3. Limited exam as above. ED physician has reviewed this report. GIGU Course/Dx - Course Course Of Treatment: Patient is here with vomiting and diarrhea that started after a discharge yesterday. Patient had a large workup yesterday including an LP which was all negative. Patient had mild right upper quadrant tenderness and dark-colored urine. Patient had reevaluation for that which showed no change from his baseline. Patient had an ultrasound which showed no evidence of cholecystitis. Patient was discharged with PCP follow-up - Diagnoses Provider Diagnoses: Vomiting and diarrhea Discharge ED - Sign-Out/Discharge Documenting (check all that apply): Patient Departure - Discharge Plan Condition: Stable Disposition: HOME Referrals: Syd Chi MD [Primary Care Provider] - Additional Instructions: Follow up with your primary care provider within the next 1-3 days. Return to the emergency department with any new or worsening symptoms, including fever or worsening abdominal pain. - Billing Disposition and Condition Condition: STABLE Disposition: Home - Attestation Statements Document Initiated by Cam: Yes Documenting Scribe: Raquel Rolon Provider For Whom Cam is Documenting (Include Credential): Brent Ambrosio MD. Scribe Attestation: Raquel Loza scribed for Brent Ambrosio MD. on 03/19/19 at 205. Scribe Documentation Reviewed: Yes Provider Attestation: The documentation as recorded by the Raquel rios accurately reflects the service I personally performed and the decisions made by Brent aly MD. Status of Scribe Document: Viewed
[2019-03-19 18:24] LABS: ABS Lymphocytes 0.6 10^3/ul (1.0-4.8); ABS Monocytes 0.3 10^3/ul (0-0.8); ABS Neutrophils 6.1 10^3/ul (1.5-7.7); Hematocrit 40 % (42-52); Hemoglobin 13.8 g/dL (14.0-18.0); Mean Corpuscular HGB Conc 34 g/dL (31-36); Mean Corpuscular Hemoglobin 32 pg (27-31); Mean Corpuscular Volume 95 fL (80-94); Mean Platelet Volume 7.7 fL (7.4-10.4); Platelet Count 379 10^3/uL (150-450); Red Blood Count 4.27 10^6 /uL (4.18-5.48); Red Cell Distribution Width 13 % (10-15); White Blood Count 6.9 10^3/uL (3.5-10.8)
[2019-03-19 18:47] LABS: Albumin 4.3 g/dL (3.2-5.2); Albumin/Globulin Ratio 1.4 (1-3); BUN/Creatinine Ratio 12.9 (8-20); Calcium 9.5 mg/dL (8.6-10.3); EGFR African American 64.5 (>60); EGFR Non-African American 53.3 (>60); Globulin 3.1 g/dL (2-4); Potassium 4.9 mmol/L (3.5-5.0); Total Bilirubin 0.7 mg/dL (0.2-1.0); Total Protein 7.4 g/dL (6.4-8.9)
[2019-03-19 19:16] LABS: Urine Appearance Clear; Urine Bilirubin Negative (Negative); Urine Blood Negative (Negative); Urine Color Amber; Urine Glucose Negative (Negative); Urine Ketones Trace (Negative); Urine Nitrite Negative (Negative); Urine Protein Negative (Negative); Urine Specific Gravity 1.024 (1.010-1.030); Urine Urobilinogen Negative (Negative)
[2019-03-19 20:49] VITALS: BP 128/70
== END 2019-03-19 20:15 | disposition home or self-care (01) ==
LOC: ED 14:37
DX: R11.2 Nausea with vomiting, unspecified (principal); R19.7 Diarrhea, unspecified; R53.1 Weakness; R30.0 Dysuria; Z87.891 Personal history of nicotine dependence; K21.9 Gastro-esophageal reflux disease without esophagitis; F41.9 Anxiety disorder, unspecified; F32.9 Major depressive disorder, single episode, unspecified
CPT/HCPCS: 36415; 76705; 80053; 81003; 82550; 83690; 85025; 99283

== ENCOUNTER 2019-03-25 20:21 | Inpatient (IN) | payer MEDICARE, BC ==
--- NOTE | 2019-03-25 20:51 | ED ---
Headache - HPI Summary HPI Summary: This patient is a 73 year old male presenting to [facility] accompanied by his with a chief complaint of headache since 2 days ago. He was discharged home from [facility] 2 days ago, and had two episodes of n/v. He also reports dizziness and lightheadedness. His states he is often confused. - History Of Current Complaint Chief Complaint: EDDizziness Stated Complaint: HEADACHE PER PT Time Seen by Provider: 03/25/19 20:32 Hx Obtained From: Patient, Family/[employer] Onset/Duration: Started days ago - Allergies/Home Medications Allergies/Adverse Reactions: Allergies Allergy/AdvReac Type Severity Reaction Status Date / Time fentanyl Allergy Agitation Verified 03/06/19 17:25 morphine Allergy Agitation Verified 03/06/19 17:25 Home Medications: Home Medications Acetaminophen TAB* [Tylenol TAB*] 650 mg PO Q6H PRN 03/25/19 [History Confirmed 03/25/19] Alfuzosin ER (NF) [Uroxatral (NF)] 10 mg PO DAILY 03/25/19 [History Confirmed ] Aspirin EC TAB* [Ecotrin EC Low Dose 81 MG*] 81 mg PO DAILY 03/25/19 [History Confirmed 03/25/19] Atorvastatin* [Lipitor 20 MG*] 20 mg PO DAILY 03/25/19 [History Confirmed ] Cholecalciferol TAB* [Vitamin D TAB*] 2,000 units PO DAILY 03/25/19 [History Confirmed 03/25/19] Finasteride TAB* [Proscar TAB*] 5 mg PO DAILY 03/25/19 [History Confirmed ] Fluticasone NASAL SPRAY 50MCG* [Flonase NASAL SPRAY 50MCG*] 2 spray BOTH NARES DAILY 03/25/19 [History Confirmed 03/25/19] Fluticasone-Salmeterol 100-50* [Advair Diskus 100-50*] 1 puff INH BID 03/25/19 [ History Confirmed 03/25/19] Folic Acid TAB* [Folvite TAB*] 1 mg PO DAILY 03/25/19 [History Confirmed ] Medical Marijuana 1 - 3 puff INH Q6HR PRN 03/25/19 [History Confirmed 03/25/19] OLANzapine TAB* [Zyprexa 10 MG TAB*] mg PO BEDTIME 03/25/19 [History Confirmed 03/25/19] Pantoprazole TAB * [Protonix TAB*] 40 mg PO DAILY 03/25/19 [History Confirmed ] Polyethylene Glycol 3350* [Miralax*] 17 gm PO BID 03/25/19 [History Confirmed ] Senna TAB 8.6 mg* [Senokot 8.6 mg TAB*] 2 tab PO DAILY PRN 03/25/19 [History Confirmed 03/25/19] Tamsulosin CAP* [Flomax CAP*] 0.4 mg PO DAILY 03/25/19 [History Confirmed ] Vitamin B Complex CAP* [B Complex CAP*] 1 cap PO DAILY 03/25/19 [History Confirmed 03/25/19] Vitamin E Mixed [Vitamin E] 2,000 unit PO DAILY 03/25/19 [History Confirmed ] clonazePAM TAB(*) [Klonopin TAB(*)] 0.5 mg PO BID PRN 03/25/19 [History Confirmed 03/25/19] prednisoLONE 1% OPHTH.SUSP* [Pred Forte 1%*] 1 drop LEFT EYE QID 03/25/19 [ History Confirmed 03/25/19] PMH/Surg Hx/FS Hx/Imm Hx Endocrine/Hematology History: Denies: Hx Diabetes Cardiovascular History: Reports: Hx Hypercholesterolemia Denies: Hx Hypertension Respiratory History: Reports: Hx Asthma, Hx Chronic Obstructive Pulmonary Disease (COPD) GI History: Reports: Hx Gastroesophageal Reflux Disease - ON MEDICATION History: Denies: Hx Renal Disease Musculoskeletal History: Reports: Hx Arthritis - LOWER BACK Sensory History: Reports: Hx Contacts or Glasses - GLASSES Denies: Hx Hearing Aid Opthamlomology History: Reports: Hx Contacts or Glasses - GLASSES Psychiatric History: Reports: Hx Anxiety - ON MEDICATION, Hx Depression - ON MEDICATION - Cancer History Cancer Type, Location and Year: prostrate cancer dx 01/2016. DOing well with treatment started 5 weeks ago - Surgical History Surgery Procedure, Year, and Place: LEFT ELBOW JOINT MOUSE SURGERY, 1983, [facility] [place]. LEFT H[place] REPLACEMENT, 2005, [facility] [place]. 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 Hx Substance Use: No Substance Use Type: Reports: None Substance Use Comment - Amount & Last Used: medical marijuana Hx Tobacco Use: Yes Smoking Status (MU): Former Smoker Review of Systems Positive: Vomiting, Nausea Neurological: Other - Dizziness/lightheadedness, conclusion Positive: Headache All Other Systems Reviewed And Are Negative: Yes Physical Exam - Summary Physical Exam Summary: Appearance: Well-appearing, Well-nourished, lying in bed comfortably Skin: Warm, dry, no obvious rash Eyes: sclera anicteric, no conjunctival pallor ENT: mucous membranes moist, pharynx appears normal Neck: Supple, nontender Respiratory: Clear to auscultation, no signs of respiratory distress Cardiovascular: Normal S1, S2. No murmurs. Normal distal pulses in tibial and radial bilaterally. Abdomen: Soft, nontender, normal active bowel sounds present Musculoskeletal: Normal, Strength/ROM Intact Neurological: A&Ox3, awake and alert, mentation is normal, speech is fluent and appropriate Psychiatric: affect is normal, does not appear anxious or depressed Triage Information Reviewed: Yes Vital Signs On Initial Exam: Initial Vitals Temp Pulse Resp BP Pulse Ox 97.1 F 54 16 153/73 97 03/25/19 20:25 03/25/19 20:25 03/25/19 20:25 03/25/19 20:25 03/25/19 20:25 Vital Signs Reviewed: Yes Procedures - Sedation Patient Received Moderate/Deep Sedation with Procedure: No Diagnostics - Vital Signs Vital Signs Temp Pulse Resp BP Pulse Ox 03/25/19 20:25 97.1 F 54 16 153/73 97 - Laboratory Result Diagrams: 03/26/19 06:08 03/27/19 06:04 Lab Statement: Any lab studies that have been ordered have been reviewed, and results considered in the medical decision making process. - EKG 2107 Cardiac Rate: Bradycardia - 55 BPM EKG Rhythm: Sinus Bradycardia Summary of EKG Findings: Sinus Bradycardia at 55 BPM, P waves, QRS complex, and T waves are within normal limits, T waves and intervals are normal, no ischemic changes. Except for Bradycardia this is an otherwise normal EKG. ED Physician has reviewed and interpreted this report. Headache Course/Dx - Course Course Of Treatment: This patient is a 73 year old male presenting to [facility] accompanied by his with a chief complaint of headache since 2 days ago. Bloodwork reveals RBC 3.64 L, Hgb 12.0 L, Hct 35 L, MCV 96 H, MCH [address] Rodriguez, Hospitalist, accepted the patient for admission pending urinalysis. This plan was discussed with the patient and he was agreeable with this plan. - Diagnoses Provider Diagnoses: Vertigo Discharge ED - Sign-Out/Discharge Documenting (check all that apply): Patient Departure - Admission - Discharge Plan Condition: Stable Disposition: ADMITTED TO [facility] - Billing Disposition and Condition Condition: STABLE Disposition: Admitted to [facility] - Attestation Statements Document Initiated by Cam: Yes Documenting Manuelibe: Ravindra Newberry Provider For Whom Cam is Documenting (Include Credential): Neftali Rhodes MD Scribe Attestation: Ravindra Loza scribed for Neftali Rhodes MD on 03/28/19 at 1833. Scribe Documentation Reviewed: Yes Provider Attestation: The documentation as recorded by the Ravindra rios accurately reflects the service I personally performed and the decisions made by Neftali aly MD Status of Scribe Document: Viewed
[2019-03-25] MEDS ORDERED: NS 0.9% 1000 ML** 1,000 ML IV ONE (20:59)
[2019-03-25] MEDS ORDERED: Ondansetron INJ* 2 MG/ML VIAL IV ONE (21:01)
[2019-03-25 21:26] LABS: ABS Monocytes 0.4 10^3/ul (0-0.8); ABS Neutrophils 3.4 10^3/ul (1.5-7.7); Eosinophil % 0.5 %; Hematocrit 35 % (42-52); Lymphocyte % 20.1 %; Mean Corpuscular HGB Conc 34 g/dL (31-36); Mean Corpuscular Hemoglobin 33 pg (27-31); Mean Corpuscular Volume 96 fL (80-94); Mean Platelet Volume 7.7 fL (7.4-10.4); Nucleated Red Blood Cells % 0.1; Platelet Count 313 10^3/uL (150-450); Red Blood Count 3.64 10^6 /uL (4.18-5.48); Red Cell Distribution Width 13 % (10-15); White Blood Count 4.7 10^3/uL (3.5-10.8)
[2019-03-25 21:36] LABS: Albumin 3.8 g/dL (3.2-5.2); Albumin/Globulin Ratio 1.6 (1-3); BUN/Creatinine Ratio 12.2 (8-20); Calcium 8.9 mg/dL (8.6-10.3); EGFR Non-African American 75.2 (>60); Globulin 2.4 g/dL (2-4); Potassium 3.6 mmol/L (3.5-5.0); Total Bilirubin 0.6 mg/dL (0.2-1.0); Total Protein 6.2 g/dL (6.4-8.9)
[2019-03-25 22:22] LABS: Urine Appearance Clear; Urine Bilirubin Negative (Negative); Urine Blood Negative (Negative); Urine Color Straw; Urine Glucose Negative (Negative); Urine Ketones Negative (Negative); Urine Nitrite Negative (Negative); Urine Protein Negative (Negative); Urine Specific Gravity 1.004 (1.010-1.030); Urine Urobilinogen Negative (Negative)
[2019-03-26] MEDS ORDERED: Ondansetron INJ* 2 MG/ML VIAL IV PRN (01:37)
[2019-03-26] MEDS ORDERED: clonazePAM TAB(*) 0.5 MG PO PRN (01:56)
--- NOTE | 2019-03-26 05:12 | HP ---
CC: Dr. Syd Chi * ADMISSION HISTORY AND PHYSICAL: DATE OF ADMISSION: 03/26/19 PRIMARY CARE PHYSICIAN: Syd Chi MD CHIEF COMPLAINT: Headache, intractable vomiting, and dizziness. HISTORY OF PRESENT ILLNESS: This is a 73-year-old gentleman with past medical history of BPH without obstruction, gastroesophageal reflux disease, seasonal allergies, dyslipidemia, who was recently admitted at [facility] twice within the month of February. Initial admission was due to vision loss in the left eye, thought to be due to panuveitis of the left eye, was started on some antiviral, antifungal, and antibiotics. He was subsequently discharged from there and then he comes back again on 03/18/19 and 03/19/19 for vomiting and headaches along with vertigo. He was seen in the ER and subsequently sent home after the case was discussed with a neurologist. The was not satisfied with the patient's symptom being still persistent, so she went back to [facility]. At which point, he was admitted again to [facility] and was discharged home on 03/23/19, roughly 2 days ago and after discharge, he was still having headache for the last 2 days with a room spinning sensation, was too dizzy to take care of himself. He did not have any alleviating or aggravating factors. His dizziness was accompanied with nausea and vomiting. He denied any abdominal pain, any diarrhea, any chest pain, any shortness of breath, or cough. The patient could not recollect the second admission at [facility]. He knew he was there, but he was unable to give the details as to why he was there. I called the who suggested that the second admission was due to headache and his vertigo sensation, which she was told was due to low sodium and they gave him some fluids and subsequently discharged him home. On discharge, he again was given some antibiotics, Bactrim; antiviral, valacyclovir; and antifungal, voriconazole. He is unaware as to why they are being prescribed those things for another 3 days, but the patient has not been able to tolerate them due to vomiting. The patient recently had further workup done at [facility] for ruling out stroke for that vision loss but in the end it was thought to be panuveitis. PAST MEDICAL HISTORY: Include: 1. BPH. 2. Gastroesophageal reflux disease. 3. Seasonal allergies. 4. Severe arthritis. 5. Bipolar disease. 6. Depression and anxiety. 7. Dyslipidemia. 8. He does take medical marijuana for arthritis, but has not been taking it for the last 2 weeks. 9. History of COPD. 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 11. 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 12. Prostate cancer, for which he had radiation. PAST SURGICAL HISTORY: Include: 1. Bony cyst removed from his left elbow in 1981. 2. Right knee arthroscopy in 1977. 3. Recently done right total knee replacement. 4. Bilateral hip replacement. 5. Cataract resection on the left eye, which was not complete, so a laser procedure was followed for the left eye and the patient has unequal pupil since the left eye surgery. HOME MEDICATIONS: The patient is on: 1. Voriconazole 200 mg every 12 hours. 2. Vitamin E 2000 units oral daily. 3. Valacyclovir 1 tablet oral every 8 hours. 4. Flomax 0.4 mg oral daily. 5. Vitamin D 2000 units oral daily. 6. Bactrim 1 tab oral twice a day. 7. Senna 2 tablets daily p.r.n. for constipation. 8. Pred Forte 1 drop left eye 4 times a day. 9. MiraLAX 17 gram packet twice a day. 10. Protonix 40 mg daily. 11. Zyprexa 10 mg oral daily. 12. Ofloxacin 0.3% drops ophthalmic left eye 4 times a day. 13. Medical marijuana 1 to 3 puffs by inhalation q.6 hours p.r.n. 14. Folic acid 1 tablet oral daily. 15. Fluticasone nasal spray, 2 sprays both nares daily. 16. Klonopin 0.5 mg p.o. b.i.d. p.r.n. 17. Vitamin B complex 1 tablet oral daily. 18. Proscar 5 mg oral daily. 19. Atropine 1% drop ophthalmic left eye b.i.d. 20. Atorvastatin 20 mg oral daily. 21. Aspirin 81 mg oral daily. 22. Advair Diskus 100/50 by inhalation daily b.i.d. 23. Tylenol 650 mg q.6 hours p.r.n. ALLERGIES: The patient allergic to PENICILLIN and MORPHINE, which causes agitation. FAMILY HISTORY: Mother had heart disease at age 55. Father of leukemia at age 78. SOCIAL HISTORY: He lives with his . He is retired. He quit smoking pipe in 1990, quit alcohol in 1978, and only does medical marijuana. He is otherwise full code and is the healthcare proxy. REVIEW OF SYSTEMS: A 14-point review of systems did not reveal any new information other than the ones in the HPI. PHYSICAL EXAMINATION MENTAL STATUS: Awake, alert, oriented to time, place, and person. GENERAL: Did not appear to be in any acute respiratory distress. VITAL SIGNS: Temperature was noted to be 97.1, BP was noted to be 127/68, heart rate 52, respiration rate 15, saturating 95% on room air. HEAD AND NECK: Atraumatic, normocephalic. Pupils were noted to be unequal, but equally reactive. The left pupil was noted to be 4 mm but reactive to 3, the right pupil was noted to be 2 mm, reactive to 1 mm. NECK: Supple. No jugular venous distention. LUNGS: Clear to auscultation bilaterally. No wheezing, rhonchi, or rales. HEART: S1, S2. Regular rate and rhythm. ABDOMEN: Soft, nontender, nondistended. EXTREMITIES: No cyanosis, clubbing, or edema. DIAGNOSTIC STUDIES/LAB DATA: CBC was unremarkable except for mild anemia. Comprehensive metabolic panel shows mild hyponatremia with sodium of 134, but otherwise unremarkable. Urinalysis showed clear urine with low specific gravity , but otherwise normal. IMPRESSION: This is a 73-year-old gentleman with benign prostatic hyperplasia, single kidney, allergic rhinitis, chronic obstructive pulmonary disease, arthritis, bipolar, depression and anxiety, here due to severe vertigo, headache , nausea, vomiting. ASSESSMENT: 1. Headache, intractable vomiting, and vertigo. Unclear if this is secondary to benign positional vertigo or a central cause of vertigo. We will try to obtain records from [facility] to see what tests were performed and we will consult neurology and see if an MRI is indicated in this patient. In the meantime, we will start the patient on meclizine to see if his symptoms subside. 2. History of bipolar, depression and anxiety. We will restart home medication. 3. History of dyslipidemia. Restart home medications. 4. History of chronic obstructive pulmonary disease. Restart home medications. 5. History of allergic rhinitis. Restart home medications. 6. History of panuveitis of the left eye. Restart home medications including the antibiotics, but we will hold Bactrim in light of his single kidney history. 7. History of benign prostatic hyperplasia. Restart home medications. 8. DVT prophylaxis with sequential compression device. 9. Code status. Full code with , Lilliam Garcia, being the healthcare proxy. [id number]/CPS #: [id number] MTDD
[2019-03-26] MEDS: Meclizine TAB* 12.5 MG PO SCH ×3 (05:54→21:38)
[2019-03-26] MEDS: ValACYclovir (*) 1 GM TAB PO SCH ×3 (05:54→21:38)
[2019-03-26] MEDS: NS 0.9% 1000 ML** 1,000 ML IV SCH ×2 (05:55→21:50)
[2019-03-26 06:40] LABS: ABS Eosinophils 0.1 10^3/ul (0-0.6); ABS Lymphocytes 1.5 10^3/ul (1.0-4.8); ABS Monocytes 0.5 10^3/ul (0-0.8); ABS Neutrophils 3.3 10^3/ul (1.5-7.7); Eosinophil % 1.1 %; Hematocrit 34 % (42-52); Hemoglobin 11.2 g/dL (14.0-18.0); Lymphocyte % 27.9 %; Mean Corpuscular HGB Conc 33 g/dL (31-36); Mean Corpuscular Hemoglobin 33 pg (27-31); Mean Corpuscular Volume 100 fL (80-94); Mean Platelet Volume 7.7 fL (7.4-10.4); Nucleated Red Blood Cells % 0.2; Platelet Count 299 10^3/uL (150-450); Red Blood Count 3.36 10^6 /uL (4.18-5.48); Red Cell Distribution Width 14 % (10-15); White Blood Count 5.4 10^3/uL (3.5-10.8)
[2019-03-26 06:50] LABS: Anion Gap 5 mmol/L (2-11); BUN/Creatinine Ratio 11.3 (8-20); Blood Urea Nitrogen 12 mg/dL (6-24); CO2 Carbon Dioxide 26 mmol/L (22-32); Calcium 8.7 mg/dL (8.6-10.3); Chloride 105 mmol/L (101-111); EGFR African American 83.1 (>60); EGFR Non-African American 68.7 (>60); Glucose 99 mg/dL (70-100); Potassium 4.1 mmol/L (3.5-5.0); Sodium 136 mmol/L (135-145)
[2019-03-26] MEDS: Atorvastatin* 20 MG TAB PO SCH (08:02)
[2019-03-26] MEDS: Cholecalciferol TAB* 1000 UNITS PO SCH (08:02)
[2019-03-26] MEDS: Aspirin EC TAB* 81 MG TAB.EC PO SCH (08:02)
[2019-03-26] MEDS: Finasteride TAB* 5 MG PO SCH (08:02)
[2019-03-26] MEDS: Folic Acid TAB* 1 MG PO SCH (08:02)
[2019-03-26] MEDS: Tamsulosin CAP* 0.4 MG PO SCH (08:02)
[2019-03-26] MEDS: Polyethylene Glycol 3350* 17 GM PACKET PO SCH ×2 (08:02→21:39)
[2019-03-26] MEDS: Vitamin B Complex TAB PO SCH (08:03)
[2019-03-26] MEDS: prednisoLONE 1% OPHTH.SUSP* 5 ML OPHTH.SUSP LEFT EYE SCH ×4 (08:03→21:39)
[2019-03-26] MEDS: Fluticasone NASAL SPRAY 50MCG* 16 gm SPRAY BTL BOTH NARES SCH (08:04)
[2019-03-26] MEDS: Ofloxacin 0.3% (Eye Drop) 5 ml BTL LEFT EYE SCH ×4 (08:05→21:39)
[2019-03-26] MEDS: Pantoprazole TAB * 40 MG TAB PO SCH (08:05)
[2019-03-26] MEDS: VITAMIN E PO SCH (08:05)
[2019-03-26] MEDS: VORICONAZOLE 200 MG PO SCH ×2 (08:05→21:39)
[2019-03-26] MEDS: Mometasone/Formoter 100/5 MDI INH SCH ×2 (08:42→20:06)
[2019-03-26] MEDS ORDERED: Atropine 1% OPHTH.SOL* 1 DROP BTL 2-5 ML LEFT EYE SCH (09:00)
[2019-03-26] MEDS ORDERED: Sulfamethox/Trimethoprim DS 800/160* TAB PO SCH (09:00)
[2019-03-26] MEDS ORDERED: VITAMIN E PO SCH (09:00)
[2019-03-26] MEDS: Senna TAB 8.6 mg* TAB PO PRN (11:47)
[2019-03-26] MEDS: Acetaminophen TAB* 325 MG PO PRN (11:47)
[2019-03-26 14:20] LABS: C Reactive Protein < 1.00 mg/L (<8.01)
[2019-03-26] MEDS ORDERED: LORazepam TAB(*) 0.5 MG PO ONE (14:45)
--- NOTE | 2019-03-26 14:45 | PN ---
Subjective Date of Service: 03/26/19 Interval History: Obtained records from [facility] which are now in chart. Discharge summary form demonstrated overall infectious workup for panuveitis was negative. No discharge summary written for most recent hospitalization (d/c was 03/23/19 per patient) however a progress note was obtained which demonstrated that patient was hospitalized most recently for dizziness which was attributed to hyponatremia. Additionally discussed with patient's ophthalmology office (Dr. Caldwell) who mentioned that patient was advised to d/c atropine eye drops at visit on , as this was possibly contributing to dizziness. Patient states he feels dizzy still today, but this dizziness improved after he lied down as Dr. Barkley suggested. It remained resolved after this position change, even when he sat upright in bed afterwards. He tells me it is more like a lightheaded sensation than a room spinning sensation. He tells me he has blurry vision and he feels like he "really needs to focus on an object to see it." This persists after the dizziness resolves. Denies nausea, vomiting, or abd pain. Denies fever/chills, chest pain, difficulty breathing. Objective Active Medications: Acetaminophen (Tylenol Tab*) 650 mg PO Q4H PRN PRN Reason: HEADACHE Last Admin: 03/26/19 11:47 Dose: 650 mg Aspirin (Aspirin Ec Tab*) 81 mg PO DAILY [facility] Last Admin: 03/26/19 08:02 Dose: 81 mg Atorvastatin Calcium (Lipitor*) 20 mg PO DAILY [facility] Last Admin: 03/26/19 08:02 Dose: 20 mg Atropine Sulfate (Atropine 1% Ophth.Margaret*) 1 drop LEFT EYE BID [facility] Last Admin: 03/26/19 08:04 Dose: 1 drp Cholecalciferol (Vitamin D Tab*) 2,000 units PO DAILY [facility] Last Admin: 03/26/19 08:02 Dose: 2,000 units Clonazepam (Klonopin Tab(*)) 0.5 mg PO BID PRN PRN Reason: ANXIETY Finasteride (Proscar Tab*) 5 mg PO DAILY [facility] Last Admin: 03/26/19 08:02 Dose: 5 mg Fluticasone Propionate (Flonase Nasal [place] 50mcg*) 2 spray BOTH NARES DAILY [facility] Last Admin: 03/26/19 08:04 Dose: 2 spray Folic Acid (Folvite Tab*) 1 mg PO DAILY [facility] Last Admin: 03/26/19 08:02 Dose: 1 mg Sodium Chloride (Ns 0.9% 1000 Ml) 1,000 mls @ 100 mls/hr IV PER RATE [facility] Last Admin: 03/26/19 05:55 Dose: 100 mls/hr Meclizine HCl (Antivert Tab*) 25 mg PO Q8HR [facility] Last Admin: 03/26/19 13:15 Dose: 25 mg Mometasone Furoate/Formoterol Fumar (Dulera 100/5 Mdi*) 2 puff INH BID [facility] Last Admin: 03/26/19 08:42 Dose: 2 puff Vitamin E Home (Supplement) 1 dose PO DAILY [facility] Last Admin: 03/26/19 08:05 Dose: Not Given Ofloxacin (Ocuflox Opth 0.3%(Nf)) 1 drop LEFT EYE QID [facility] Last Admin: 03/26/19 11:47 Dose: Not Given Olanzapine (Zyprexa Tab*) 10 mg PO BEDTIME [facility] Ondansetron HCl (Zofran Inj*) 4 mg IV Q4H PRN PRN Reason: NAUSEA/VOMITING Pantoprazole Sodium (Protonix Tab*) 40 mg PO DAILY [facility] Last Admin: 03/26/19 08:05 Dose: 40 mg Polyethylene Glycol/Electrolytes (Miralax*) 17 gm PO BID [facility] Last Admin: 03/26/19 08:02 Dose: 17 gm Prednisolone Acetate (Pred Forte 1%*) 1 drop LEFT EYE QID [facility] Last Admin: 03/26/19 13:15 Dose: 1 drp Senna (Senokot 8.6 Mg Tab*) 2 tab PO DAILY PRN PRN Reason: CONSTIPATION Last Admin: 03/26/19 11:47 Dose: 2 tab Tamsulosin HCl (Flomax Cap*) 0.4 mg PO DAILY [facility] Last Admin: 03/26/19 08:02 Dose: 0.4 mg Valacyclovir HCl (Valtrex 1 Gm(*)) 1 gm PO Q8HR [facility]; Protocol Last Admin: 03/26/19 13:15 Dose: 1 gm Vitamin B Complex/Vitamin E (B Complex-50*) 1 tab PO DAILY [facility] Last Admin: 03/26/19 08:03 Dose: 1 tab Voriconazole (Voriconazole Tab (Nf)) 200 mg PO Q12H [facility] Last Admin: 03/26/19 08:05 Dose: Not Given Vital Signs - 8 hr 03/26/19 03/26/19 03/26/19 07:15 07:53 08:00 Temperature 98.8 F Pulse Rate 76 Respiratory 16 16 Rate Blood Pressure 111/60 (mmHg) O2 Sat by Pulse Oximetry 03/26/19 03/26/19 03/26/19 08:44 11:15 11:41 Temperature 97.3 F Pulse Rate 58 57 Respiratory 16 20 Rate Blood Pressure 117/64 200/94 (mmHg) O2 Sat by Pulse 98 95 Oximetry Oxygen Devices in Use Now: None Appearance: Elderly, obese white male, sitting upright in hospital bed, appearing in NAD Eyes: No Scleral Icterus, - - PERRL; visual acuity equal in both eyes ~20/40 bilaterally Ears/Nose/Mouth/Throat: Mucous Membranes Moist Neck: NL Appearance and Movements; NL JVP Respiratory: Symmetrical Chest Expansion and Respiratory Effort, Clear to Auscultation Cardiovascular: NL Sounds; No Murmurs; No JVD, RRR Abdominal: NL Sounds; No Tenderness; No Distention, - Extremities: No Edema, No Clubbing, Cyanosis Skin: No Rash or Ulcers Neurological: Alert and Oriented x 3, NL Muscle Strength and Tone Result Diagrams: 03/26/19 06:08 03/26/19 06:08 Assess/Plan/Problems-Billing Assessment: 73 yo white male with PMHx BPH, GERD, bipolar disorder, depression/anxiety, dyslipidemia, COPD, and recent left panuveitis presents with dizziness, nausea, and vomiting. - Patient Problems (1) Dizziness Current Visit: Yes Status: Acute Code(s): R42 - DIZZINESS AND GIDDINESS SNOMED Code(s): 198038176 Comment: -patient recently hospitalized at [facility] for dizziness, reported discharge date 03/23/19. Patient had hyponatremia during this stay -Na is now normal and patient had persistent dizziness accompanied by n/v. Dizziness intermittent today -Appreciate neurology consult. MRI brain with and without contrast pending per Dr. Barkley's rec -patient had LP on ED visit [place] [facility] [place] which was unrevealing (2) Nausea & vomiting Current Visit: Yes Status: Acute Code(s): R11.2 - NAUSEA WITH VOMITING, UNSPECIFIED SNOMED Code(s): 57327523 Comment: -likely related to dizziness -resolved today (3) Panuveitis of left eye Current Visit: Yes Status: Acute Code(s): H44.112 - PANUVEITIS, LEFT EYE SNOMED Code(s): 289646968029624 Comment: -recent empiric therapy and had outpatient f/u with ophthalmology on 03/15/19 -at that visit, Dr. Walters's office (including Dr. Caldwell) recommended d/c atropine eye drops as he was c/o dizziness at that visit and that was possibly a factor. It appears patient did not do so. Will d/c now -continuing prednisolone, valcyclovir, oxifloxacin, and voriconazle drops -vision is equal and intact in bilateral eyes today (4) COPD (chronic obstructive pulmonary disease) Current Visit: Yes Status: Acute Code(s): J44.9 - CHRONIC OBSTRUCTIVE PULMONARY DISEASE, UNSPECIFIED SNOMED Code(s): 43846982 Comment: -continue dulera -appears patient is not on home LAMA (5) Hyperlipidemia Current Visit: Yes Status: Acute Code(s): E78.5 - HYPERLIPIDEMIA, UNSPECIFIED SNOMED Code(s): 06082912 Comment: -continue statin (6) Bipolar disorder Current Visit: Yes Status: Acute Code(s): F31.9 - BIPOLAR DISORDER, UNSPECIFIED SNOMED Code(s): 26666216 Comment: -continue olanzapine and prn clonazepam (7) DVT prophylaxis Current Visit: Yes Status: Acute Code(s): Z29.9 - ENCOUNTER FOR PROPHYLACTIC MEASURES, UNSPECIFIED SNOMED Code(s): 520521347 (8) Full code status Current Visit: Yes Status: Acute Code(s): Z78.9 - OTHER SPECIFIED HEALTH STATUS SNOMED Code(s): 124415121
[2019-03-26] MEDS ORDERED: Gadoteridol* (CONTRAST) 279.3 MG/ML 10 ML IV ONE (16:30)
[2019-03-26] MEDS ORDERED: Enoxaparin(*) 40 MG/0.4 ML SYR SUBCUT SCH (18:30)
--- NOTE | 2019-03-26 19:51 | CONS ---
NEUROLOGY CONSULTATION NOTE: DATE OF CONSULT: 03/26/19 CONSULTING PROVIDER: EMELY Mims REASON FOR NEUROLOGICAL CONSULT: Dizziness. CHIEF COMPLAINT: Dizziness and headaches. HISTORY OF PRESENT ILLNESS: Mr. 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 The patient stated that he has headaches and dizziness that started at the same time approximately 2 weeks ago. The headaches are described as greater onset, constant, bifrontal headache, 7/10 in severity and associated with nausea and blurred vision. Lying flat does not completely improve or resolve the pain. Sneezing, coughing, or straining worsens the pain. The headache is described as sharp, dull like sensation that has not gone away. At the same time, he complains of feeling nauseated, vomited multiple times yesterday, spinning sensation described as vertigo, exacerbated with movement, and symptoms never go away. The symptoms also started same time he had headaches. He recalls sitting down after putting clothes on to have breakfast and suddenly he developed headache and spinning sensation. He denied any tinnitus. He does have history of hearing loss. The patient was hospitalized at [facility] few times in the month of February. On 03/06/19, he presented with sudden onset visual loss in the left eye. He was transferred from [facility] to [facility] for ophthalmologic evaluation. He was diagnosed with panuveitis of the left eye. He did undergo CTA head and neck at [facility] and at [facility] that showed no evidence of large vessel occlusion or stenosis. I have the discharge summary dated on 03/10/19. He underwent intravitreal ceftazidime, vancomycin, voriconazole, Foscarnet with vitreous tap on 03/07/19. It was sent for viral/ bacterial/fungal cultures. It has been negative according to the discharge summary so far. He also had testing for syphilis IgG/IgM, hep C, antibodies, Lyme IgG/IgM, varicella zoster virus IgG was positive but IgM was negative. CMV PCR was negative. Toxoplasma PCR is negative. He was transitioned to p.o. antibiotics and he was discharged home. Interestingly, the symptoms of dizziness and headache started after his hospitalization for which he was discharged from [facility] on 03/10/19. Today, the patient stated that on is when he developed the headaches and the vertigo. On reviewing the [facility] discharge summary again dated on 03/10/19 and it showed no complaints of vertigo or headaches. The patient's main complaint today include constant headaches and the vertigo. Please note that the patient's headache began before the lumbar puncture that he had done here at [facility]. The headaches do not improve when lying flat. Labs, imaging, and other diagnostic testings: WBC obtained on 03/26/19 showed 5.4, hemoglobin of 11.2, hematocrit of 34, platelet count of 299. Sodium of 136 , potassium of 4.1, chloride of 105, creatinine is 1.06. Urinalysis was negative for pyuria. Other labs that were done within the past month include serology screening in the [employer] that include Lyme [employer] which is pending, hepatitic C was nonreactive, influenza A and B negative. The CSF fluid was obtained on and showed a total cell count of 18, neutrophil 72%, total protein 49, glucose of 67, HSV 1 and 2 are negative. West Nile virus was negative. Cryptococcus antigen was negative. ESR and C-reactive protein were not checked during this hospitalization. PAST MEDICAL HISTORY: 1. BPH. 2. Anxiety. 3. Cataract surgery. 4. GERD. 5. Arthritis. 6. Bipolar disorder. 7. Dyslipidemia. 8. Medicinal marijuana for arthritic pain. 9. COPD. 10. Recent diagnosis of panuveitis of the left eye. 11. Tumor resection of the left kidney. 12. Prostate cancer, status post radiation therapy. HOME MEDICATIONS: 1. Ofloxacin 1 drop in the left eye 4 times a day. 2. Voriconazole 200 mg p.o. every 12 hours. 3. Valacyclovir 1 g p.o. every 8 hours. 4. Tamsulosin 0.4 mg p.o. daily. 5. Vitamin D supplements 2000 units p.o. daily. 6. Bactrim 1 tablet by mouth b.i.d. 7. Senna 2 tablets by mouth daily as needed. 8. Prednisolone 1% ophthalmic suspension 1 drop in the left eye 4 times daily. 9. Polyethylene glycol 17 g p.o. b.i.d. 10. Pantoprazole 40 mg p.o. daily. 11. Olanzapine 10 mg p.o. at bedtime. 12. Medicinal marijuana inhalation 1 to 3 puffs inhaled every 6 hours. 13. Folic acid 1 mg p.o. daily. 14. Fluticasone 2 sprays both nares daily. 15. Clonazepam 0.5 mg p.o. b.i.d. p.r.n. 16. Vitamin B complex daily. 17. Finasteride 5 mg p.o. daily. 18. Atropine 1% one drop left eye b.i.d. 19. Atorvastatin 20 mg p.o. daily. 20. Aspirin 81 mg p.o. daily. 21. Fluticasone 1 puff inhaled b.i.d. 22. Alfuzosin 10 mg p.o. daily. 23. Acetaminophen 650 mg p.o. every 6 hours. 24. Vitamin E 2000 units p.o. daily. ALLERGIES: PENICILLIN and MORPHINE. FAMILY HISTORY: No family history of stroke or seizures. Father of leukemia. 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 He lives with his . He quit smoking in 1990 and stopped drinking alcohol in 1978. REVIEW OF SYSTEMS: A 14-point review of systems was obtained and otherwise negative except for what was mentioned in the HPI. PHYSICAL EXAMINATION: Vital Signs: Temperature of 97.3, pulse of 57, respiratory rate of 20, oxygen saturation 95, blood pressure of 117/64. The patient had orthostatic vitals that were unremarkable. General: Well-nourished , well- developed elderly man, in no acute distress. Head: Atraumatic/ normocephalic without any obvious abnormalities. HINT examination was negative , but there is skew deviation on the right side with the cover and uncover tests with deviations towards the medial side on the right. Neck is supple and symmetrical with no carotid bruits. Cardiovascular: Regular rate and rhythm with normal S1, S2. Pulmonary: Clear to auscultation bilaterally with no wheezing or rhonchi. Extremities: Normal range of motion with no cyanosis. He has bilateral hammertoes and slightly higher arches. Skin: No skin lesions or laceration. Psych: Flat affect, normal mood. Easy to establish rapport. Neurological Examination: Mental status: Awake and alert, oriented to person, place, time, and general circumstance. He has got mild psychomotor slowing. Language and speech were assessed and found to be normal. This includes repetition, comprehension, and fluency. Cranial Nerves: Pupils equal, round, and reactive to light. There is some slight response to light stimulation on the left eye, but the patient recently had injections in that eye. Extraocular muscles are intact. Reduced sensation to temperature on the left side of the face, although this was inconsistent. No clear facial asymmetry, although slight loss of the nasolabial fold on the left. Tongue is symmetrical and midline with no atrophy or fasciculation. The patient had a positional horizontal nystagmus towards the right side with fast beating nystagmus going towards the right. Motor Examination: 5/5 strength in upper and lower extremities. No pronator drift. Sensation is slightly reduced on the left side compared to the right temperature sensation but again this was inconsistent. Vibration reduced on the left. Normal proprioception bilaterally. Reflexes 1+ on the right and 2+ on the left with downgoing plantar responses bilaterally. Cerebellar: Normal [id number] and heel-to- mayorga testing bilaterally. Gait is wide based, but no ataxia. ASSESSMENT AND RECOMMENDATIONS: Mr. Espinoza Garcia is a 73-year-old man with the recent diagnosis of panuveitis of the left eye, who developed sudden onset vertigo and headaches since 03/18/19. He underwent a lumbar puncture, which showed mild pleocytosis with neutrophil predominant but the cultures did not show any evidence of infection. The patient has received multiple antibiotics over the last 2 weeks for the panuveitis. On examination, he has evoked induced nystagmus with some patchy sensory loss to temperature sensation. Differential diagnosis is broad. 1. Vertigo: I suspect the patient has vestibular neuritis; however, the skew deviation towards the right and the hemisensory loss on examination are concerning signs for central cause of vertigo. Therefore, an MRI of the brain without contrast is essential in differentiating from peripheral vs central etiology. Other differential diagnosis such as Braxton syndrome can be seen in an elderly with underlying autoimmune and inflammatory diseases, especially involving the eyes as well as the vestibular system. If the MRI is negative, we will proceed with steroid therapy to see if his symptoms resolve. I have ordered an ESR and CRP to evaluate for inflammatory causes of vertigo. 2. Headaches. This is a predominantly frontal headaches without any significant visual disturbance. I suspect this is secondary to the panuveitis vs an aseptic meningitis (cell count slightly elevated in the CSF). He has minimal positional related headache, but the pain does not improve signiificantly when laying flat. Therefore, I don't think he would benefit from a blood patch. I have ordered an ESR and CRP to rule out to any possible underlying arteritis. Hold off on any steroid therapy; however, his headache could also be manifestation of the panuveitis as well as drug related given the therapy that he is currently receiving. We will proceed with an MRI of the brain to rule out any secondary to causes of the headaches. Continue neuro checks every 4 hours. Neurology will continue to follow. [id number]/[facility] #: [id number] ISIDRO
[2019-03-26] MEDS: OLANzapine TAB* 10 MG PO SCH (21:38)
[2019-03-27] MEDS: ValACYclovir (*) 1 GM TAB PO SCH ×3 (06:07→21:13)
[2019-03-27] MEDS: Meclizine TAB* 12.5 MG PO SCH ×3 (06:07→21:14)
[2019-03-27 06:48] LABS: BUN/Creatinine Ratio 14.3 (8-20); Calcium 8.5 mg/dL (8.6-10.3); EGFR Non-African American 64.4 (>60); Potassium 4.2 mmol/L (3.5-5.0)
[2019-03-27] MEDS: Mometasone/Formoter 100/5 MDI INH SCH ×2 (08:50→22:40)
--- NOTE | 2019-03-27 10:12 | PN ---
Subjective Date of Service: 03/27/19 Length of Stay: 1 Days Neurology is following for evaluation of headache and vertigo. Interval History: He feels better today but still has headaches when he sits up or after he starts ambulating. The headache is bifrontal, 6/10 in severity, and improves today when laying flat. He also still has dizziness described as spinning sensation with sudden head movements. He denied any visual disturbance, double vision, nausea/vomiting, weakness, or paresthesias. MRI brain with/without contrast showed diffuse pacyhmeningeal enhancement, asymmetric T2 hyperintensity and enhancement within the left transverse and sigmoid sinuses. CRP: <1.00 ESR: 14 Review of Systems: Denied CP, SOB, or palpitations. Objective Active Medications: Acetaminophen (Tylenol Tab*) 650 mg PO Q4H PRN PRN Reason: HEADACHE Last Admin: 03/26/19 11:47 Dose: 650 mg Aspirin (Aspirin Ec Tab*) 81 mg PO DAILY [facility] Last Admin: 03/26/19 08:02 Dose: 81 mg Atorvastatin Calcium (Lipitor*) 20 mg PO DAILY [facility] Last Admin: 03/26/19 08:02 Dose: 20 mg Cholecalciferol (Vitamin D Tab*) 2,000 units PO DAILY [facility] Last Admin: 03/26/19 08:02 Dose: 2,000 units Clonazepam (Klonopin Tab(*)) 0.5 mg PO BID PRN PRN Reason: ANXIETY Enoxaparin Sodium (Lovenox(*)) 40 mg SUBCUT Q24H [facility] Last Admin: 03/26/19 18:30 Dose: 40 mg Finasteride (Proscar Tab*) 5 mg PO DAILY [facility] Last Admin: 03/26/19 08:02 Dose: 5 mg Fluticasone Propionate (Flonase Nasal [place] 50mcg*) 2 spray BOTH NARES DAILY [facility] Last Admin: 03/26/19 08:04 Dose: 2 spray Folic Acid (Folvite Tab*) 1 mg PO DAILY [facility] Last Admin: 03/26/19 08:02 Dose: 1 mg Sodium Chloride (Ns 0.9% 1000 Ml) 1,000 mls @ 100 mls/hr IV PER RATE [facility] Last Admin: 03/26/19 21:50 Dose: 100 mls/hr Meclizine HCl (Antivert Tab*) 25 mg PO Q8HR [facility] Last Admin: 03/27/19 06:07 Dose: 25 mg Mometasone Furoate/Formoterol Fumar (Dulera 100/5 Mdi*) 2 puff INH BID [facility] Last Admin: 03/27/19 08:50 Dose: 2 puff Vitamin E Home (Supplement) 1 dose PO DAILY [facility] Last Admin: 03/26/19 08:05 Dose: Not Given Ofloxacin (Ocuflox Opth 0.3%(Nf)) 1 drop LEFT EYE QID [facility] Last Admin: 03/26/19 21:39 Dose: Not Given Olanzapine (Zyprexa Tab*) 10 mg PO BEDTIME [facility] Last Admin: 03/26/19 21:38 Dose: 10 mg Ondansetron HCl (Zofran Inj*) 4 mg IV Q4H PRN PRN Reason: NAUSEA/VOMITING Pantoprazole Sodium (Protonix Tab*) 40 mg PO DAILY [facility] Last Admin: 03/26/19 08:05 Dose: 40 mg Polyethylene Glycol/Electrolytes (Miralax*) 17 gm PO BID [facility] Last Admin: 03/26/19 21:39 Dose: 17 gm Prednisolone Acetate (Pred Forte 1%*) 1 drop LEFT EYE QID [facility] Last Admin: 03/26/19 21:39 Dose: 1 drp Senna (Senokot 8.6 Mg Tab*) 2 tab PO DAILY PRN PRN Reason: CONSTIPATION Last Admin: 03/26/19 11:47 Dose: 2 tab Tamsulosin HCl (Flomax Cap*) 0.4 mg PO DAILY [facility] Last Admin: 03/26/19 08:02 Dose: 0.4 mg Valacyclovir HCl (Valtrex 1 Gm(*)) 1 gm PO Q8HR [facility]; Protocol Last Admin: 03/27/19 06:07 Dose: 1 gm Vitamin B Complex/Vitamin E (B Complex-50*) 1 tab PO DAILY [facility] Last Admin: 03/26/19 08:03 Dose: 1 tab Voriconazole (Voriconazole Tab (Nf)) 200 mg PO Q12H [facility] Last Admin: 03/26/19 21:39 Dose: Not Given Vital Signs 03/26/19 03/26/19 03/26/19 11:15 11:41 15:15 Temperature 97.3 F 97.3 F Pulse Rate 57 65 Respiratory 20 24 Rate Blood Pressure 117/64 200/94 133/66 (mmHg) O2 Sat by Pulse 95 96 Oximetry 03/26/19 03/26/19 03/26/19 15:51 17:34 19:02 Temperature 96.9 F Pulse Rate 64 Respiratory 20 16 20 Rate Blood Pressure 110/65 (mmHg) O2 Sat by Pulse 94 Oximetry 03/26/19 03/26/19 03/26/19 20:07 20:20 23:49 Temperature 98.4 F Pulse Rate 64 56 Respiratory 12 20 14 Rate Blood Pressure 104/47 (mmHg) O2 Sat by Pulse 94 96 Oximetry 03/27/19 03/27/19 03/27/19 03:19 07:15 08:05 Temperature 97.6 F 97.8 F Pulse Rate 51 49 Respiratory 16 16 16 Rate Blood Pressure 118/59 111/49 (mmHg) O2 Sat by Pulse 99 97 Oximetry 03/27/19 08:51 Temperature Pulse Rate 53 Respiratory 16 Rate Blood Pressure (mmHg) O2 Sat by Pulse 96 Oximetry Intake and Output Last 24 Hours 03/25/19 03/26/19 03/27/19 03/28/19 06:59 06:59 06:59 06:59 Intake Total 1000 1945 470 Output Total 1200 Balance 1000 745 470 Weight 225 lb 225 lb Intake: IV Fluids 1000 500 NS (0.9%) 500 Oral 0 1445 470 Output: Urine 1200 Other: Estimated Void Medium # Voids 2 Oxygen Devices in Use Now: None Neurology Exam: General: Well nourished, well developed, and in no acute distress HEENT: Normocephelic/atraumatic, sclera anicteric, mucous membranes moist Neck: Supple Extremities: No clubbing, cyanosis, or edema Neurological Findings: Awake, alert, and oriented to person, place, and time. Speech: fluent without dysarthria, repetition intact Cranial Nerve: PERRL, EOM intact, VFF. Right evoked horizontal nystagmus with fast beat towards the right. Minimal left evoked rotatory nystagmus when looking towards the left. Motor: s/s throughout, proximal and distal extremities x4 tone/bulk normal Sensation: intact to LT/PP bilaterally upper and lower extremities Deep Tendon Reflex: 1+ symmetric in the upper/lower extremities, Babinski - down going Finger to nose, rapid alternating movements intact without tremor, no dysdiadochokinesia Gait: intact with good arm swing and stride Result Diagrams: 03/26/19 06:08 03/27/19 06:04 Assessment/Plan Mr. Espinoza Garcia is a 73-year-old man who presented with a one week history of intermittent headache and vertigo. He had an LP done on 03/18/2019. 1. Headaches and vertigo due to intracranial hypotension - He may have had a spontaneous dural tear or iatrogenic (secondary to LP). - Recommend obtaining an MRV of the head with and without contrast (ordered) to make sure he does not have a cerebral venous thrombosis. The distention of the left transverse sinus can be commonly seen with intracranial hypotension. - Recommend consulting interventional radiology for a lumbar blood patch - I anticipate his symptoms will resolve few hours after the LP. - He did not have a stroke. Vestibular neuritis is still in the differential although it's unlikely since now he has bilateral horizontal nystgmus to bilateral end gaze (central process such as intracranial hypotension). - The normal ESR and CRP ruled out an inflammatory process (e.g., temporal arteritis, or Braxton Syndrome)
[2019-03-27] MEDS: prednisoLONE 1% OPHTH.SUSP* 5 ML OPHTH.SUSP LEFT EYE SCH ×4 (10:33→21:12)
[2019-03-27] MEDS: Polyethylene Glycol 3350* 17 GM PACKET PO SCH ×2 (10:34→21:13)
[2019-03-27] MEDS: Fluticasone NASAL SPRAY 50MCG* 16 gm SPRAY BTL BOTH NARES SCH (10:34)
[2019-03-27] MEDS: Folic Acid TAB* 1 MG PO SCH (10:35)
[2019-03-27] MEDS: Cholecalciferol TAB* 1000 UNITS PO SCH (10:35)
[2019-03-27] MEDS: Aspirin EC TAB* 81 MG TAB.EC PO SCH (10:36)
[2019-03-27] MEDS: Tamsulosin CAP* 0.4 MG PO SCH (10:36)
[2019-03-27] MEDS: Senna TAB 8.6 mg* TAB PO PRN (10:36)
[2019-03-27] MEDS: Pantoprazole TAB * 40 MG TAB PO SCH (10:36)
[2019-03-27] MEDS: Atorvastatin* 20 MG TAB PO SCH (10:36)
[2019-03-27] MEDS: Finasteride TAB* 5 MG PO SCH (10:36)
[2019-03-27] MEDS: Acetaminophen TAB* 325 MG PO PRN (10:36)
[2019-03-27] MEDS: NS 0.9% 1000 ML** 1,000 ML IV SCH (10:42)
[2019-03-27] MEDS: Ofloxacin 0.3% (Eye Drop) 5 ml BTL LEFT EYE SCH ×4 (10:42→21:13)
[2019-03-27] MEDS: VITAMIN E PO SCH (10:42)
[2019-03-27] MEDS: VORICONAZOLE 200 MG PO SCH ×2 (10:55→21:14)
--- NOTE | 2019-03-27 10:59 | PN ---
Subjective Date of Service: 03/27/19 Interval History: Patient's dizziness feels resolved by time of my evaluation. Again, he endorses that when he laid flat during Dr. Barkley's evaluation the dizziness resolved. Denies nausea, vomiting, abd pain, difficulty breathing. Objective Active Medications: Acetaminophen (Tylenol Tab*) 650 mg PO Q4H PRN PRN Reason: HEADACHE Last Admin: 03/27/19 10:36 Dose: 650 mg Aspirin (Aspirin Ec Tab*) 81 mg PO DAILY [facility] Last Admin: 03/27/19 10:36 Dose: 81 mg Atorvastatin Calcium (Lipitor*) 20 mg PO DAILY [facility] Last Admin: 03/27/19 10:36 Dose: 20 mg Cholecalciferol (Vitamin D Tab*) 2,000 units PO DAILY [facility] Last Admin: 03/27/19 10:35 Dose: 2,000 units Clonazepam (Klonopin Tab(*)) 0.5 mg PO BID PRN PRN Reason: ANXIETY Finasteride (Proscar Tab*) 5 mg PO DAILY [facility] Last Admin: 03/27/19 10:36 Dose: 5 mg Fluticasone Propionate (Flonase Nasal [place] 50mcg*) 2 spray BOTH NARES DAILY [facility] Last Admin: 03/27/19 10:34 Dose: 2 spray Folic Acid (Folvite Tab*) 1 mg PO DAILY [facility] Last Admin: 03/27/19 10:35 Dose: 1 mg Sodium Chloride (Ns 0.9% 1000 Ml) 1,000 mls @ 100 mls/hr IV PER RATE [facility] Last Admin: 03/27/19 10:42 Dose: 100 mls/hr Meclizine HCl (Antivert Tab*) 25 mg PO Q8HR [facility] Last Admin: 03/27/19 06:07 Dose: 25 mg Mometasone Furoate/Formoterol Fumar (Dulera 100/5 Mdi*) 2 puff INH BID [facility] Last Admin: 03/27/19 08:50 Dose: 2 puff Vitamin E Home (Supplement) 1 dose PO DAILY [facility] Last Admin: 03/27/19 10:42 Dose: Not Given Ofloxacin (Ocuflox Opth 0.3%(Nf)) 1 drop LEFT EYE QID [facility] Last Admin: 03/27/19 10:42 Dose: Not Given Olanzapine (Zyprexa Tab*) 10 mg PO BEDTIME [facility] Last Admin: 03/26/19 21:38 Dose: 10 mg Ondansetron HCl (Zofran Inj*) 4 mg IV Q4H PRN PRN Reason: NAUSEA/VOMITING Pantoprazole Sodium (Protonix Tab*) 40 mg PO DAILY [facility] Last Admin: 03/27/19 10:36 Dose: 40 mg Polyethylene Glycol/Electrolytes (Miralax*) 17 gm PO BID [facility] Last Admin: 03/27/19 10:34 Dose: 17 gm Prednisolone Acetate (Pred Forte 1%*) 1 drop LEFT EYE QID [facility] Last Admin: 03/27/19 10:33 Dose: 1 drp Senna (Senokot 8.6 Mg Tab*) 2 tab PO DAILY PRN PRN Reason: CONSTIPATION Last Admin: 03/27/19 10:36 Dose: 2 tab Tamsulosin HCl (Flomax Cap*) 0.4 mg PO DAILY [facility] Last Admin: 03/27/19 10:36 Dose: 0.4 mg Valacyclovir HCl (Valtrex 1 Gm(*)) 1 gm PO Q8HR [facility]; Protocol Last Admin: 03/27/19 06:07 Dose: 1 gm Vitamin B Complex/Vitamin E (B Complex-50*) 1 tab PO DAILY [facility] Last Admin: 03/26/19 08:03 Dose: 1 tab Voriconazole (Voriconazole Tab (Nf)) 200 mg PO Q12H [facility] Last Admin: 03/27/19 10:55 Dose: Not Given Vital Signs - 8 hr 03/27/19 03/27/19 03/27/19 03:19 07:15 08:05 Temperature 97.6 F 97.8 F Pulse Rate 51 49 Respiratory 16 16 16 Rate Blood Pressure 118/59 111/49 (mmHg) O2 Sat by Pulse 99 97 Oximetry 03/27/19 08:51 Temperature Pulse Rate 53 Respiratory 16 Rate Blood Pressure (mmHg) O2 Sat by Pulse 96 Oximetry Oxygen Devices in Use Now: None Appearance: Elderly white male, laying upright in hospital bed, appearing comfortable Eyes: No Scleral Icterus, - - PERRL Ears/Nose/Mouth/Throat: Mucous Membranes Moist Neck: NL Appearance and Movements; NL JVP Respiratory: Symmetrical Chest Expansion and Respiratory Effort, Clear to Auscultation Cardiovascular: NL Sounds; No Murmurs; No JVD, RRR Abdominal: - - abd soft, nontender, nondistended Extremities: No Edema, No Clubbing, Cyanosis Skin: No Rash or Ulcers, - - skin warm, dry, intact Neurological: Alert and Oriented x 3, - - strength is 5/5 in all extremities Result Diagrams: 03/26/19 06:08 03/27/19 06:04 Diagnostic Imaging: MRV HEAD WWO 03/27/19 FINDINGS: A linear nonocclusive filling defect extends from the left sigmoid sinus to the left jugular foramen. The remaining dural venous sinuses, internal cerebral veins and superficial cortical veins are grossly unremarkable. Pachymeningeal enhancement is redemonstrated. There is no abnormal intra-axial enhancement, mass effect or midline shift. There is mild cerebral volume loss. IMPRESSION: 1. A nonocclusive thrombus extends from the left sigmoid sinus to the left jugular foramen. 2. Unchanged pachymeningeal enhancement in the context of recent lumbar puncture. 3. Mild cerebral volume loss. Assess/Plan/Problems-Billing Assessment: 73 yo white male with PMHx BPH, GERD, bipolar disorder, depression/anxiety, dyslipidemia, COPD, and recent left panuveitis presents with dizziness, nausea, and vomiting. - Patient Problems (1) Cerebral venous thrombosis Current Visit: Yes Status: Acute Code(s): G08 - INTRACRANIAL AND INTRASPINAL PHLEBITIS AND THROMBOPHLEBITIS SNOMED Code(s): 67207017 Comment: -suspected on MRI brain, MRV results above confirm diagnosis -unclear etiology at this point, though the recent left panuveitis is a possibility. Will need outpatient heme/onc follow up to possibly evaluate hypercoaguability. His prior hx of cancer may of concern as well -will need alf anticoagulation. Starting Xarelto tomorrow (2) Dizziness Current Visit: Yes Status: Acute Code(s): R42 - DIZZINESS AND GIDDINESS SNOMED Code(s): 894863983 Comment: -patient recently hospitalized at [facility] for dizziness, reported discharge date 03/23/19. Patient had hyponatremia during this stay -Na is now normal and patient had persistent dizziness accompanied by n/v. Dizziness resolves with position per Dr. Barkley. -Appreciate neurology consult. MRI brain demonstrates pachymeningeal enhancement , likely due to CSF leak. This appears the be the most likely cause of his dizziness, though the cerebral venous thrombosis could be contributing as well. (3) CSF leak Current Visit: Yes Status: Acute Code(s): G96.0 - CEREBROSPINAL FLUID LEAK SNOMED Code(s): 276041336 Comment: -suspected based on recent LP (03/18/19), persistent headache since this time, and pachymeningeal enchancement on MRI brain -Dr. Barkley recommends blood patch -anesthesiology consulted, appreciate their involvement. Blood patch placed today (4) Panuveitis of left eye Current Visit: Yes Status: Acute Code(s): H44.112 - PANUVEITIS, LEFT EYE SNOMED Code(s): 246527069745653 Comment: -recent empiric therapy and had outpatient f/u with ophthalmology on 03/15/19 -at that visit, Dr. Walters's office (including Dr. Caldwell) recommended d/c atropine eye drops as he was c/o dizziness at that visit and that was possibly a factor. It appears patient did not do so. Will d/c now -continuing prednisolone, valcyclovir, oxifloxacin, and voriconazle drops -vision unchanged today (5) COPD (chronic obstructive pulmonary disease) Current Visit: Yes Status: Acute Code(s): J44.9 - CHRONIC OBSTRUCTIVE PULMONARY DISEASE, UNSPECIFIED SNOMED Code(s): 93327440 Comment: -continue dulera -appears patient is not on home LAMA (6) Hyperlipidemia Current Visit: Yes Status: Acute Code(s): E78.5 - HYPERLIPIDEMIA, UNSPECIFIED SNOMED Code(s): 85841685 Comment: -continue statin (7) Bipolar disorder Current Visit: Yes Status: Acute Code(s): F31.9 - BIPOLAR DISORDER, UNSPECIFIED SNOMED Code(s): 37548482 Comment: -continue olanzapine and prn clonazepam (8) DVT prophylaxis Current Visit: Yes Status: Acute Code(s): Z29.9 - ENCOUNTER FOR PROPHYLACTIC MEASURES, UNSPECIFIED SNOMED Code(s): 700238601 Comment: -holding lovenox for blood patch, starting xarelto tomorrow. SCDs (9) Full code status Current Visit: Yes Status: Acute Code(s): Z78.9 - OTHER SPECIFIED HEALTH STATUS SNOMED Code(s): 102685208 Status and Disposition: remains inpatient for procedure and hopeful for discharge tomorrow if medically stable
[2019-03-27] MEDS: Vitamin B Complex TAB PO SCH (11:00)
[2019-03-27] MEDS ORDERED: Gadoteridol* (CONTRAST) 279.3 MG/ML 10 ML IV ONE (11:29)
[2019-03-27] MEDS: OLANzapine TAB* 10 MG PO SCH (21:13)
[2019-03-27] MEDS: Rivaroxaban TAB(*) 15 MG PO SCH (21:14)
--- NOTE | 2019-03-27 23:55 | PM ---
CC: Dr. Barkley * DATE OF PROCEDURE: 03/27/19 - ROOM #445 CHIEF COMPLAINT: Postdural headache and vertigo. HISTORY: The patient is a 73-year-old male who is an inpatient in room 445 at the hospital. The patient was admitted with symptoms of vertigo and headache. The patient was seen by Dr. Barkley of Neurology and he thought that some of his symptoms may have been related to a spinal tap done 9 days ago. He thought some of his headache was component of a postdural puncture headache. He subsequently had an MRI, the MRI of 03/26/19 showed no MR evidence of acute infarction, mild diffuse nonspecific patchy meningeal enhancement findings suggestive of potential underlying intracranial hypotension. There was also asymmetric T2 hyperintensity enhancements within the left transverse and sigmoid sinuses, which could not exclude a venous thrombosis. They recommended an MRV, which was done today. The results of that MRV showed a nonocclusive thrombus extending from the left sigmoid sinus to the left jugular foramen. Dr. Barkley recommended an epidural blood patch to see if some of the patient's symptoms could be resolved by treating the potential postdural puncture headache prior to anticoagulating him for the nonocclusive thrombus. The patient last received a dose of Lovenox of 40 mg at 6 p.m. yesterday. I spoke with Berta Aragon, the PA following the patient, and she asked that we perform the epidural blood patch per Dr. Barkley's recommendations today prior to being anticoagulated. I had a chance to meet with the patient, review his medical record, review his medications, and discuss with him the procedure. I explained to him in detail the process of the epidural blood patch, and after going over the risks, benefits, and alternatives to therapy, informed consent was obtained. PROCEDURE NOTE: The patient was placed in the sitting position. His back was prepped and draped in the usual sterile fashion. 3 cc of 1% lidocaine was used with local anesthesia at the L3-4 interspace. A 17-gauge Tuohy needle was used to identify the epidural space using loss of resistance to air technique. Dr. Schroeder aseptically alisha a total of 18 mL of the patient's blood and I proceeded to inject the 18 mL of blood into the epidural space with frequent negative aspirations. The patient tolerated the procedure well and was sent back to his hospital room in stable condition. [id number]/[facility] #: [id number] MTDD
[2019-03-28] MEDS: NS 0.9% 1000 ML** 1,000 ML IV SCH (00:43)
[2019-03-28] MEDS: Meclizine TAB* 12.5 MG PO SCH (05:19)
[2019-03-28] MEDS: ValACYclovir (*) 1 GM TAB PO SCH (05:19)
[2019-03-28] MEDS: Mometasone/Formoter 100/5 MDI INH SCH (07:13)
[2019-03-28 07:54] VITALS: BP 134/63
[2019-03-28] MEDS: Fluticasone NASAL SPRAY 50MCG* 16 gm SPRAY BTL BOTH NARES SCH (11:06)
[2019-03-28] MEDS: Cholecalciferol TAB* 1000 UNITS PO SCH (11:07)
[2019-03-28] MEDS: prednisoLONE 1% OPHTH.SUSP* 5 ML OPHTH.SUSP LEFT EYE SCH (11:07)
[2019-03-28] MEDS: Finasteride TAB* 5 MG PO SCH (11:07)
[2019-03-28] MEDS: Tamsulosin CAP* 0.4 MG PO SCH (11:08)
[2019-03-28] MEDS: Atorvastatin* 20 MG TAB PO SCH (11:08)
[2019-03-28] MEDS: Rivaroxaban TAB(*) 15 MG PO SCH (11:08)
[2019-03-28] MEDS: Pantoprazole TAB * 40 MG TAB PO SCH (11:08)
[2019-03-28] MEDS: Aspirin EC TAB* 81 MG TAB.EC PO SCH (11:08)
[2019-03-28] MEDS: Folic Acid TAB* 1 MG PO SCH (11:08)
[2019-03-28] MEDS: Ofloxacin 0.3% (Eye Drop) 5 ml BTL LEFT EYE SCH (11:10)
[2019-03-28] MEDS: VORICONAZOLE 200 MG PO SCH (11:10)
[2019-03-28] MEDS: VITAMIN E PO SCH (11:10)
[2019-03-28] MEDS: Vitamin B Complex TAB PO SCH (11:14)
[2019-03-28] MEDS: Polyethylene Glycol 3350* 17 GM PACKET PO SCH (11:18)
--- NOTE | 2019-03-28 14:22 | PN ---
Subjective Date of Service: 03/28/19 Length of Stay: 2 Days Neurology is following for headaches. Interval History: Mr. Garcia had a blood patch placed yesterday. He immediately noticed a change and his headaches resolved. He is now up sitting at the edge of the bed eating breakfast. He is very content and denied any weakness. He still has mild vertigo when looking towards the right. It has improved from a few days ago. He is ready to go home today. Review of Systems: Denied CP, SOB, or palpitations. Objective Vital Signs 03/27/19 03/27/19 03/27/19 15:12 17:01 19:03 Temperature 97.3 F 97.0 F 97.0 F Pulse Rate 61 61 67 Respiratory 20 16 16 Rate Blood Pressure 115/58 128/66 119/55 (mmHg) O2 Sat by Pulse 99 97 98 Oximetry 03/27/19 03/27/19 03/27/19 19:14 20:00 23:10 Temperature 97.5 F Pulse Rate 62 Respiratory 18 16 14 Rate Blood Pressure 123/61 (mmHg) O2 Sat by Pulse 96 Oximetry 03/28/19 03/28/19 03/28/19 03:15 07:15 07:47 Temperature 97.5 F 97.2 F Pulse Rate 57 67 Respiratory 14 20 17 Rate Blood Pressure 106/58 134/63 (mmHg) O2 Sat by Pulse 98 99 Oximetry Intake and Output Last 24 Hours 03/26/19 03/27/19 03/28/19 03/29/19 06:59 06:59 06:59 06:59 Intake Total 1000 1945 4457 761 Output Total 1200 2325 Balance 6956 493 8909 761 Weight 225 lb 225 lb Intake: IV Fluids 1593 118 4640 NS (0.9%) 500 2557 IVPB 291 NS (0.9%) 291 Oral 0 1445 1900 470 Output: Urine 1200 2325 Other: Estimated Void Medium Medium # Voids 2 2 Oxygen Devices in Use Now: None Neurology Exam: General: Well nourished, well developed, and in no acute distress HEENT: Normocephelic/atraumatic, sclera anicteric, mucous membranes moist Neck: Supple Extremities: No clubbing, cyanosis, or edema Neurological Findings: Awake, alert, and oriented to person, place, and time. Speech: fluent without dysarthria, repetition intact Cranial Nerve: PERRL, EOM intact, VFF, mild, endgaze evoked nystagmus towards the right. face symmetric bilaterally, facial sensation intact, hearing intact to finger rub bilaterally, palate elevates symmetrically, tongue midline, SCM and Trapezius s/s. Motor: s/s throughout, proximal and distal extremities x4 tone/bulk normal Sensation: intact to LT/PP bilaterally upper and lower extremities Deep Tendon Reflex: 2+ symmetric in the upper/lower extremities, Babinski - down going Finger to nose, rapid alternating movements intact without tremor, no dysdiadochokinesia Gait: intact with good arm swing and stride Result Diagrams: 03/26/19 06:08 03/27/19 06:04 Diagnostic Imaging: MRV HEAD WWO 03/27/19 FINDINGS: A linear nonocclusive filling defect extends from the left sigmoid sinus to the left jugular foramen. The remaining dural venous sinuses, internal cerebral veins and superficial cortical veins are grossly unremarkable. Pachymeningeal enhancement is redemonstrated. There is no abnormal intra-axial enhancement, mass effect or midline shift. There is mild cerebral volume loss. IMPRESSION: 1. A nonocclusive thrombus extends from the left sigmoid sinus to the left jugular foramen. 2. Unchanged pachymeningeal enhancement in the context of recent lumbar puncture. 3. Mild cerebral volume loss. Assessment/Plan Mr. Espinoza Garcia is a 73-year-old man who presented with a one week history of intermittent headache and vertigo. He had an LP done on 03/18/2019. The headache was positional and worsened when sitting up or standing. MRI brain showed a nonocclusive left transverse extending to the sigmoid sinus thrombus and patchymeningeal enhancement. 1. Headache and vertigo due to intractable hypotension- resolved after the blood patch. 2. Cerebral venous nonocclusive thrombosis involving the left transverse and signoid sinuses- I wonder if this is caused by the recent diagnosis of left panuveitis. He has history of treated cancer. Hypercoagulable work-up can be considered as an outpatient. Recommendations: - Xarelto 20 mg nightly for 6 months. Start the Xarelto 12 hours post lumbar pucnture. - Follow-up with neurology in 6-8 weeks. He can be discharged today. Repeat an MRV of the head in 4-6 months. I will sign off.
--- NOTE | 2019-03-29 01:12 | DS ---
CC: Dr. Chi; Dr. Barkley * DISCHARGE SUMMARY: DATE OF ADMISSION: 03/26/19 DATE OF DISCHARGE: 03/28/19 PROVIDER: EMELY Mims ATTENDING PHYSICIAN WHILE IN THE HOSPITAL: Dr. Viky Sesay * (dictated by EMELY Mims). PRIMARY CARE PROVIDER: Dr. Chi. CONSULTING NEUROLOGIST: Dr. Barkley. CONSULTING ANESTHESIOLOGIST: Dr. Bell. PRIMARY DIAGNOSES: 1. Intracranial hypotension, likely iatrogenic secondary to recent lumbar puncture, though possibly spontaneous. 2. Cerebral venous thrombosis. SECONDARY DIAGNOSES: 1. Benign prostatic hyperplasia. 2. Gastroesophageal reflux disease. 3. Seasonal allergies. 4. Severe arthritis. 5. Bipolar disorder. 6. Depression. 7. Anxiety. 8. Dyslipidemia. 9. Medical marijuana use for arthritis pain. 10. Chronic obstructive pulmonary disease. 11. Recent left eye panuveitis. 12. Left renal carcinoma, status post left nephrectomy. 13. Prostate cancer, status post radiation therapy. PROCEDURES WHILE IN THE HOSPITAL: On 03/27/19, epidural blood patch with Dr. Bell. STUDIES WHILE IN THE HOSPITAL: MRV on 03/27/19, impression: 1. Nonocclusive thrombus extends from the left sigmoid sinus to the left jugular foramen. 2. Unchanged pachymeningeal enhancement in the context of recent lumbar puncture. 3. Mild cerebral volume loss. Brain MRI on 03/26/19 with and without contrast, impression: 1. No MR evidence of acute infarct. 2. Mild diffuse nonspecific pachymeningeal enhancement. Findings may suggest meningeal underlying intracranial hypotension. Recommend Neurology consultation. 3. Asymmetric T2 hyperintensity and enhancement within the left transverse and sigmoid sinuses. I cannot exclude jugular venous thrombosis. Recommend correlation with CTV or MRV. 4. Other chronic findings in full report. HISTORY OF PRESENT ILLNESS/HOSPITAL COURSE: Espinoza Garcia is a 73-year-old while male with past medical history significant for previous renal cell carcinoma and prostate cancer, recent left eye panuveitis, and COPD, who presents to the emergency department on 03/26/19 due to headache, intractable vomiting, and dizziness. Please see the admitting history and physical written by Dr. Miller Rodriguez for further details. In brief, the patient presented due to headache, vomiting, and dizziness that have been persistent since recent discharge from [facility] on 03/23/19. I did obtain records from that hospital stay and the patient was hospitalized during that time for dizziness; however, at that time, it was attributable to hyponatremia, which during hospital stay here at [facility] the patient no longer had and thus was not able to explain his dizziness. Of note, he did have hospital stay earlier this month at [facility] for left eye panuveitis for which he received empiric antibiotic therapy; however, I did review the reports from his hospital stay and did not appear that any of his infectious labs were positive. He has already had followup with his tank wagon operator and was continuing his eye drops during his hospital stay. I did discuss this with his tank wagon operator and I discontinued his atropine, as it was thought to be possibly contributing to his dizziness. He was evaluated by Dr. Barkley during his hospital stay with the neurology service. Dr. Barkley recommended an MRI of the brain. It appeared that the patient did have positional headache, relieved with supine position. Of note, the patient had a lumbar puncture on 03/18/19 in the [facility] Emergency Department. MRI of the brain was consistent with pachymeningeal enhancement which is likely demonstrating dural tear. His headache is explained by intracranial hypotension. The patient received a blood patch from Dr. Bell and immediately had relief of his symptoms. Additionally during his hospital stay, as detailed above in the MRV, the patient had confirmed cerebral venous thrombosis. He was started on Xarelto approximately 12 hours after the blood patch was placed for treatment of this thrombus. It is possible that the etiology of this thrombus is his recent left eye panuveitis; however, clotting disorders or malignancy contributing to the hypercoagulability cannot be ruled out. By day of discharge, the patient no longer has dizziness, headache, nausea , or vomiting. The patient is feeling well and is in good spirits. PHYSICAL EXAMINATION: General: Elderly white male, lying upright in hospital bed, appearing comfortable, in no acute distress. Eyes: PERRLA. Sclerae anicteric. ENT: Mucous membranes are moist. Lungs: Clear to auscultation throughout. Cardio: Regular rate and rhythm without murmurs, rubs, or gallops. Abdomen: Soft, nontender, and nondistended. Extremities: No clubbing, cyanosis, or edema. No palpable cord. No calf tenderness. Neuro: The patient is alert and oriented x3. No focal deficits. 5/5 strength in all extremities. Psych: The patient is pleasant and cooperative. DISCHARGE PLAN: Diet: Regular unrestricted diet. Activity: The patient may return to regular activity as tolerated. The patient is advised to follow up with neurology service in 6 to 8 weeks. The patient additionally is advised to follow up with his tank wagon operator as previously scheduled. Additionally, the patient is advised to follow up with Dr. Bazan, his flight operations coordinator/oncologist, who the patient is previously established with to investigate if there is any hypercoagulable workup that needs to be done regarding the etiology of his thrombosis. The patient is advised to follow up with his primary care provider in 7 to 10 days. He was advised on the schedule for his Xarelto. He is advised to receive further refills from his primary care provider. If his primary care provider can ensure followup with Neurology that would be of great benefit to the patient. The patient was advised to return to the emergency department if he is experiencing unilateral numbness, tingling or weakness, facial droop, speech changes, sudden visual changes, padgett intractable vomiting. DISCHARGE MEDICATIONS: New medications: 1. Xarelto 15 mg p.o. b.i.d. x21 days, then 20 mg p.o. daily. Continued home medications: 1. Tylenol 650 mg p.o. q.6 hours p.r.n. pain. 2. Alfuzosin 10 mg p.o. daily. 3. Advair Diskus 1 puff inhaled b.i.d. 4. Aspirin 81 mg p.o. daily. 5. Lipitor 20 mg p.o. daily. 6. Finasteride 5 mg p.o. daily. 7. Vitamin B complex 1 cap p.o. daily. 8. Clonazepam 0.5 mg p.o. b.i.d. p.r.n. anxiety. 9. Flonase 2 sprays both nares daily. 10. Folic acid 1 mg p.o. daily. 11. Medical marijuana 1 to 3 puffs inhaled q.6 hours p.r.n. moderate pain. 12. Ofloxacin 0.3% one drop left eye four times a day. 13. Olanzapine 10 mg p.o. at bedtime. 14. Protonix 40 mg p.o. daily. 15. MiraLAX 17 g p.o. b.i.d. 16. Prednisolone 1 drop left eye four times a day. 17. Senna 8.6 mg 2 tabs p.o. daily p.r.n. constipation. 18. Vitamin D 2000 units p.o. daily. 19. Flomax 0.4 mg daily. 20. Valtrex 1 g p.o. q.8 hours. 21. Vitamin E 2000 units p.o. daily. 22. Voriconazole tab 200 mg p.o. q.12 hours. CONDITION ON DISCHARGE: Stable. DISPOSITION: Home. TIME SPENT: Approximately 40 minutes was spent on this discharge, approximately half that time was spent at bedside evaluating the patient and discussing plan of care. EMELY MIMS [id number]/[facility] #: [id number] MTDD
== END 2019-03-28 11:53 | disposition home or self-care (01) | DRG 314 ==
LOC: ED 20:21 → MEDTELE 03-26 01:37
PROVIDERS: ADMIT Internal Medicine; ATTEND Internal Medicine
PROC: 3E0R3GC Introduction of Other Therapeutic Substance into Spinal Canal, Percutaneous Approach (ICD-10-PCS; principal; 2019-03-27 16:30)
DX: I95.89 Other hypotension (principal); G08 Intracranial and intraspinal phlebitis and thrombophlebitis; G96.0 Cerebrospinal fluid leak; H44.112 Panuveitis, left eye; H91.90 Unspecified hearing loss, unspecified ear; N40.0 Benign prostatic hyperplasia without lower urinary tract symptoms; F41.9 Anxiety disorder, unspecified; K21.9 Gastro-esophageal reflux disease without esophagitis; E78.00 Pure hypercholesterolemia, unspecified; M47.9 Spondylosis, unspecified; J30.2 Other seasonal allergic rhinitis; Z96.643 Presence of artificial hip joint, bilateral; Z96.651 Presence of right artificial knee joint; F12.90 Cannabis use, unspecified, uncomplicated; F31.9 Bipolar disorder, unspecified; E78.5 Hyperlipidemia, unspecified; J44.9 Chronic obstructive pulmonary disease, unspecified; Z85.46 Personal history of malignant neoplasm of prostate; Z92.3 Personal history of irradiation; Z87.891 Personal history of nicotine dependence; Z88.5 Allergy status to narcotic agent; Z82.49 Family history of ischemic heart disease and other diseases of the circulatory system; Z90.5 Acquired absence of kidney; Z98.42 Cataract extraction status, left eye; Z88.0 Allergy status to penicillin
CPT/HCPCS: 36415; 62273; 70546; 70553; 80048; 80053; 81003; 83605; 85025; 85652; 86140; 93005; 94640; 96374; 99284; A9270-GY; A9579; J1650; J2405

== ENCOUNTER 2020-08-22 19:22 | Observation (INO) ==
[2020-08-22 19:59] LABS: ABS Eosinophils 0.1 10^3/ul (0-0.6); ABS Lymphocytes 0.9 10^3/ul (1.0-4.8); ABS Monocytes 0.5 10^3/ul (0-0.8); ABS Neutrophils 4.2 10^3/ul (1.5-7.7); Eosinophil % 1.1 %; Hematocrit 30 % (42-52); Hemoglobin 10.3 g/dL (14.0-18.0); Lymphocyte % 15.6 %; Mean Corpuscular HGB Conc 35 g/dL (31-36); Mean Corpuscular Hemoglobin 32 pg (27-31); Mean Corpuscular Volume 93 fL (80-94); Mean Platelet Volume 8.6 fL (7.4-10.4); Platelet Count 215 10^3/uL (150-450); Red Cell Distribution Width 14 % (10-15); White Blood Count 5.6 10^3/uL (3.5-10.8)
[2020-08-22 20:08] LABS: INR 1.16 (0.82-1.09)
[2020-08-22 20:15] LABS: Albumin 3.5 g/dL (3.2-5.2); Albumin/Globulin Ratio 1.7 (1-3); BUN/Creatinine Ratio 14.3 (8-20); Calcium 8.4 mg/dL (8.6-10.3); EGFR African American 56.8 (>60); Globulin 2.1 g/dL (2-4); Potassium 4.6 mmol/L (3.5-5.0); Total Bilirubin 0.7 mg/dL (0.2-1.0); Total Protein 5.6 g/dL (6.4-8.9)
[2020-08-22 20:17] LABS: Troponin I 0.01 ng/mL (<0.03)
[2020-08-22] MEDS ORDERED: Ondansetron 4 mg VIAL 2 MG/ML 2 ml VIAL IV PRN (22:28)
[2020-08-22] MEDS ORDERED: Senna TAB 8.6 mg TAB PO PRN (22:33)
[2020-08-22] MEDS ORDERED: Albuterol/Ipratropium NEB.SOL (2.5/0.5 MG) 3 ML NEB.SOLN INH PRN (22:33)
[2020-08-22] MEDS ORDERED: Albuterol HFA INHALER 8 gm MDI INH PRN (23:21)
[2020-08-22 23:43] LABS: Activated Partial Thrombo Time 28.4 seconds (26.0-38.0)
[2020-08-23 02:14] LABS: ABS Eosinophils 0.1 10^3/ul (0-0.6); ABS Lymphocytes 1.4 10^3/ul (1.0-4.8); ABS Monocytes 0.5 10^3/ul (0-0.8); ABS Neutrophils 2.8 10^3/ul (1.5-7.7); Eosinophil % 2.6 %; Hematocrit 30 % (42-52); Hemoglobin 10.2 g/dL (14.0-18.0); Lymphocyte % 28.6 %; Mean Corpuscular HGB Conc 34 g/dL (31-36); Mean Corpuscular Hemoglobin 32 pg (27-31); Mean Corpuscular Volume 92 fL (80-94); Mean Platelet Volume 8.4 fL (7.4-10.4); Platelet Count 213 10^3/uL (150-450); Red Blood Count 3.21 10^6 /uL (4.18-5.48); Red Cell Distribution Width 14 % (10-15); White Blood Count 4.8 10^3/uL (3.5-10.8)
[2020-08-23 02:30] LABS: BUN/Creatinine Ratio 16.2 (8-20); Calcium 8.2 mg/dL (8.6-10.3); EGFR African American 56.4 (>60); EGFR Non-African American 46.6 (>60); HDL Cholesterol 27.7 mg/dL; Potassium 4.2 mmol/L (3.5-5.0)
[2020-08-23 02:32] LABS: Troponin I 0.02 ng/mL (<0.03)
[2020-08-23] MEDS ORDERED: Heparin 5000 UNITS/ML 1 mL VIAL SUBCUT SCH (06:00)
[2020-08-23] MEDS ORDERED: Mometasone/Formoter 100/5 MDI INH SCH (09:00)
[2020-08-23] MEDS ORDERED: TICAGRELOR 60 MG PO SCH (09:00)
[2020-08-23] MEDS ORDERED: Aspirin EC 81 mg TAB.EC (enteric coated) PO SCH (09:00)
[2020-08-23 11:01] VITALS: BP 96/41
== END 2020-08-23 11:45 | disposition home or self-care (01) ==
LOC: MEDTELE 19:22 → ED 19:22 → MEDTELE 08-23 01:00
PROVIDERS: ADMIT Internal Medicine Interventional Cardiology; ATTEND Internal Medicine

== ENCOUNTER 2023-11-21 17:39 | Observation (INO) ==
[2023-11-21 17:51] LABS: ABS Lymphocytes 1.1 10^3/uL (1.0-4.8); ABS Monocytes 0.6 10^3/uL (0.0-1.1); ABS Neutrophils 3.8 10^3/uL (1.5-7.6); Eosinophil % 0.7 %; Hematocrit 35.5 % (38-53); Hemoglobin 12.1 g/dL (13.2-16.3); Lymphocyte % 20.1 %; Mean Corpuscular Hemoglobin 31.9 pg (27-33); Mean Corpuscular Hgb Conc 34.1 g/dL (31-36); Mean Corpuscular Volume 93.5 fL (80-97); Mean Platelet Volume 9.3 fL (7.5-11.2); Nucleated Red Blood Cells % 0.1 %/100WBC (0.0-0.8); Platelet Count 230 10^3/uL (150-450); Red Blood Count 3.79 10^6/uL (4.06-5.63); Red Cell Distribution Width 13.5 % (12-17); White Blood Count 5.6 10^3/uL (3.6-10.2)
[2023-11-21] MEDS ORDERED: Iodixanol (CONTRAST) 320 MG/ML 100 ML SDV IV ONE (17:51)
[2023-11-21 17:55] LABS: INR 1.66 (0.83-1.13)
[2023-11-21 19:03] LABS: ALT 17 U/L (7-52); Albumin/Globulin Ratio 1.7 (1-3); Alkaline Phosphatase 66 U/L (35-149); Blood Urea Nitrogen 24 mg/dL (6-24); CO2 Carbon Dioxide 22 mmol/L (22-32); Calcium 8.5 mg/dL (8.6-10.3); Chloride 104 mmol/L (101-111); Cholesterol 137 mg/dL; Creatinine, Serum 1.47 mg/dL (0.67-1.17); Globulin 2.3 g/dL (2-4); Glucose 102 mg/dL (70-100); HDL Cholesterol 36.6 mg/dL; LDL Cholesterol 72 mg/dL; Sodium 134 mmol/L (135-145); Total Bilirubin 0.6 mg/dL (0.2-1.0); Total Protein 6.3 g/dL (6.4-8.9); Triglycerides 142 mg/dL; eGFR CKD-EPI 49.1 (>60)
[2023-11-21 19:27] LABS: AST 18 U/L (13-39); Anion Gap 8 mmol/L (2-16); Direct Bilirubin 0.1 mg/dL (0.03-0.18); Indirect Bilirubin 0.5 mg/dL (0.3-1.0); Potassium 4.5 mmol/L (3.5-5.0)
[2023-11-21 19:30] LABS: Urine Appearance Clear; Urine Bilirubin Negative (Negative); Urine Blood Trace (Negative); Urine Color Light-Yellow; Urine Glucose Negative (Negative); Urine Ketones Negative (Negative); Urine Nitrite Negative (Negative); Urine Protein Negative (Negative); Urine Specific Gravity 1.014 (1.002-1.030); Urine Urobilinogen Negative (Negative)
[2023-11-21] MEDS ORDERED: Albuterol/Ipratropium NEB.SOL (2.5/0.5 MG) 3 ML NEB.SOLN INH PRN (21:46)
[2023-11-22] MEDS: Enoxaparin 40 MG/0.4 ML SYR SUBCUT SCH (01:56)
[2023-11-22] MEDS: Sulfur Hexaflouride MICROSPHR 25 MG VIAL IV ONE (02:49)
[2023-11-22 05:36] LABS: Magnesium 1.9 mg/dL (1.9-2.7)
[2023-11-22] MEDS ORDERED: Sulfur Hexaflouride MICROSPHR 25 MG VIAL ONE (07:44)
[2023-11-22] MEDS ORDERED: Ticagrelor 60 mg TAB (NF) PO SCH (09:00)
[2023-11-22] MEDS ORDERED: Aspirin EC 81 mg TAB.EC (enteric coated) PO SCH (09:00)
[2023-11-23 06:39] LABS: ABS Eosinophils 0.1 10^3/uL (0.0-0.5); ABS Lymphocytes 1.8 10^3/uL (1.0-4.8); ABS Monocytes 0.7 10^3/uL (0.0-1.1); ABS Neutrophils 3.4 10^3/uL (1.5-7.6); Eosinophil % 1.5 %; Hematocrit 34.7 % (38-53); Hemoglobin 11.9 g/dL (13.2-16.3); Lymphocyte % 30.3 %; Mean Corpuscular Hemoglobin 32.3 pg (27-33); Mean Corpuscular Hgb Conc 34.3 g/dL (31-36); Mean Corpuscular Volume 94.1 fL (80-97); Mean Platelet Volume 8.7 fL (7.5-11.2); Nucleated Red Blood Cells % 0.1 %/100WBC (0.0-0.8); Platelet Count 206 10^3/uL (150-450); Red Blood Count 3.69 10^6/uL (4.06-5.63); Red Cell Distribution Width 13.2 % (12-17)
[2023-11-23 07:27] LABS: Calcium 8.4 mg/dL (8.6-10.3); Creatinine, Serum 1.44 mg/dL (0.67-1.17); Magnesium 1.8 mg/dL (1.9-2.7); Potassium 4.5 mmol/L (3.5-5.0); eGFR CKD-EPI 50.4 (>60)
[2023-11-23 11:08] VITALS: BP 111/57
[2023-11-23] MEDS: Magnesium Sulfate 2 gm BAG 2 GM/50 ML BAG IVPB ONE (11:09)
== END 2023-11-23 13:27 | disposition home or self-care (01) ==
LOC: EDHOLD 17:39 → ED 17:39 → SUATTDRO 20:46 → MEDTELE 11-22 10:08
PROVIDERS: ADMIT Internal Medicine; ATTEND Internal Medicine